=== PATIENT | female | born 1985 | race Caucasian/White ===

== ENCOUNTER → 2018-01-12 10:56 | Outpatient (CLI) | payer OTHER, MEDICAID, SELFPAY ==
--- NOTE | 2018-01-12 10:59 | DI.RAD.S_ITS ---
PROCEDURE: XR WRIST LT MIN 3V INDICATIONS: Injury to Left wrist Pain radial side of wrist TECHNIQUE: 4 views of the wrist were acquired. COMPARISON: [facility], CR, WRIST COMP MIN 3VW (LT), 10/30/2013, 10:24. [facility], CR, WRIST MINIMUM 3 VIEWS LEFT, 08/30/2013, 16:20. FINDINGS: Bones: There is a remote, healed fracture of the distal radius. No new fractures are seen. No suspicious lytic or blastic lesions are seen. Scaphoid view: No navicular fractures are seen. Soft tissues: No suspicious soft tissue calcifications. IMPRESSION: No acute fractures are seen. Remote distal radius fracture, which is now healed. Dictated by: Hung Guzmán M.D. on 01/12/2018 at 11:39 Approved by: Hung Guzmán M.D. on 01/12/2018 at 11:40
[2018-01-12 12:04] LABS: Add Manual Diff / Slide Review NO; Basophils Percent Auto 0.6 % (0-2); Eosinophils Percent Auto 1.7 % (2-4); Hematocrit 39.7 % (36-46); Hemoglobin 13.2 g/dL (12.0-16.0); Mean Corpuscular HGB Conc 33.1 % (30-36); Mean Corpuscular Hemoglobin 25.5 PG (26-34); Mean Corpuscular Volume 76.9 fL (80-100); Monocytes Percent Auto 6.9 % (3-14); Neutrophils Absolute Auto 4600 /uL (3000-5900); Neutrophils Percent Auto 57.8 % (50-75); Platelet Count 232 X10^3/uL (150-400); Red Blood Cell Count 5.17 X10^6/uL (4.0-5.2); Red Cell Distribution Width 15.6 % (11.6-14.8)
[2018-01-12 12:35] LABS: Alanine Aminotransferase 34 IU/L (9-52); Albumin 4.5 g/dL (3.5-5.0); Albumin Globulin Ratio 1.3 (1.0-2.8); Alkaline Phosphatase 53 U/L (38-126); Aspartate Aminotransferase 24 IU/L (14-36); BUN Creatinine Ratio 12.5 (6-22); Bilirubin Total 0.5 mg/dL (0.2-1.3); Blood Urea Nitrogen 10 mg/dL (7-17); Calcium 9.7 mg/dL (8.4-10.2); Carbon Dioxide 25 mmol/L (22-32); Chloride 106 mmol/L (98-107); Cholesterol 208 mg/dL (140-199); Estimated Glomerular Filt Rate > 60.0 mL/min (>60); Globulin 3.4 g/dL (1.7-4.1); Glucose 103 mg/dL (70-100); HDL Cholesterol 37 mg/dL (40-60); HEMOLYSIS < 15 (0-50); LDL Cholesterol Calculated 148 mg/dL (<100); Potassium 4.2 mmol/L (3.4-5.1); Sodium 143 mmol/L (137-145); Total Protein 7.9 g/dL (6.3-8.2); Triglycerides 113 mg/dL (35-150)
[2018-01-12 12:56] LABS: Thyroid Stimulating Hormone 2.45 uIU/mL (0.47-4.68)
== END ==
PROVIDERS: Family Provider Physician Assistant; PCP Physician Assistant; Visit Provider Physician Assistant
DX: S69.92XA Unspecified injury of left wrist, hand and finger(s), initial encounter (principal); M25.532 Pain in left wrist; I10 Essential (primary) hypertension; Z13.220 Encounter for screening for lipoid disorders; Z13.6 Encounter for screening for cardiovascular disorders; E66.01 Morbid (severe) obesity due to excess calories; Z13.29 Encounter for screening for other suspected endocrine disorder; R53.83 Other fatigue
CPT/HCPCS: 36415; 73110; 80053; 80061; 84443; 85025

== ENCOUNTER → 2018-05-10 13:09 | Outpatient (CLI) | payer OTHER, MEDICAID, SELFPAY ==
--- NOTE | 2018-05-10 13:11 | DI.CT.S_ITS ---
PROCEDURE: CT SINUS SCREEN WO CON INDICATIONS: Recurrent sinusitis TECHNIQUE: Noncontrast 3.0 mm axial images acquired from the frontal sinuses to the mid-sella, with coronal and sagittal reformats. For radiation dose reduction, the following was used: automated exposure control, adjustment of mA and/or kV according to patient size. COMPARISON: None. FINDINGS: Image quality: Excellent. Maxillary Sinuses: There is partial absence of the medial davidson of the maxillary sinuses. There is a focal mucous retention cyst seen involving the inferior right maxillary sinus. Ethmoid Air Cells: Portions of the ethmoid air cell septations have been removed. Sinuses are clear. Sphenoid Sinuses: No bony remodeling or destruction. Sinuses are clear. Frontal Sinuses: No bony remodeling or destruction. Sinuses are clear. Ostiomeatal Complexes: Removed. Miscellaneous: Visualized intra-orbital contents are normal. No graciela bullosa or paradoxical turbinate curvature. No nasal septal deviation. IMPRESSION: No significant active paranasal sinus disease is seen. A mucous retention cyst is seen within the inferior right maxillary sinus Postoperative changes are seen, with removal of the ostiomeatal complexes and of portions of the medial davidson of the maxillary sinuses. Portions of the ethmoid air cell septations have also been removed. Dictated by: Hung Guzmán M.D. on 05/10/2018 at 14:13 Approved by: Hung Guzmán M.D. on 05/10/2018 at 14:15
== END ==
PROVIDERS: Family Provider Physician Assistant; PCP Physician Assistant; Visit Provider Physician Assistant
DX: J01.41 Acute recurrent pansinusitis (principal); J34.1 Cyst and mucocele of nose and nasal sinus
CPT/HCPCS: 70486

== ENCOUNTER → 2018-06-22 09:50 | Outpatient (CLI) | payer OTHER, MEDICAID, SELFPAY ==
[2018-06-22 11:57] LABS: Cholesterol 208 mg/dL (140-199); HDL Cholesterol 41 mg/dL (40-60); LDL Cholesterol Calculated 147 mg/dL (<100); Triglycerides 102 mg/dL (35-150)
== END ==
PROVIDERS: PCP Physician Assistant; Visit Provider Physician Assistant
DX: E78.5 Hyperlipidemia, unspecified (principal); I10 Essential (primary) hypertension
CPT/HCPCS: 36415; 80061

== ENCOUNTER → 2018-11-30 14:14 | Outpatient (CLI) | payer OTHER, MEDICAID, SELFPAY ==
[2018-11-30 15:34] LABS: Alanine Aminotransferase 28 IU/L (9-52); Albumin 4.5 g/dL (3.5-5.0); Albumin Globulin Ratio 1.6 (1.0-2.8); Alkaline Phosphatase 57 U/L (38-126); Aspartate Aminotransferase 20 IU/L (14-36); BUN Creatinine Ratio 15.7 (6-22); Bilirubin Total 0.8 mg/dL (0.2-1.3); Blood Urea Nitrogen 11 mg/dL (7-17); Calcium 9.8 mg/dL (8.4-10.2); Carbon Dioxide 27 mmol/L (22-32); Chloride 103 mmol/L (98-107); Cholesterol 216 mg/dL (140-199); Estimated Glomerular Filt Rate > 60.0 mL/min (>60); Globulin 2.9 g/dL (1.7-4.1); Glucose 82 mg/dL (70-100); HDL Cholesterol 35 mg/dL (40-60); HEMOLYSIS < 15 (0-50); LDL Cholesterol Calculated 147 mg/dL (<100); Potassium 4.2 mmol/L (3.4-5.1); Sodium 140 mmol/L (137-145); Total Protein 7.4 g/dL (6.3-8.2); Triglycerides 171 mg/dL (35-150)
[2018-11-30 16:23] LABS: Microalbumi Creatinin Ratio Ur 16.4 ug/mg CR (<30); Microalbumin Urine Random 2.8 mg/dL (0-1.6)
== END ==
PROVIDERS: PCP Physician Assistant; Visit Provider Physician Assistant
DX: E78.5 Hyperlipidemia, unspecified (principal); I10 Essential (primary) hypertension
CPT/HCPCS: 36415; 80053; 80061; 82043; 82570

== ENCOUNTER 2019-01-23 14:13 | Emergency (ER) | payer OTHER, MEDICAID, SELFPAY ==
[2019-01-23 14:27] VITALS: BP 148/90; PULSE 75; RESP 12; TEMP 36.7; O2SAT 100
--- NOTE | 2019-01-23 15:14 | DI.CT.S_ITS ---
PROCEDURE: CT CERVICAL SPINE WO CON INDICATIONS: mid cervical pain, s/p axonal injury to neck TECHNIQUE: Noncontrast 3 mm thick sections acquired from the skull base to the T4 level. Sagittal and coronal reformats were then constructed. For radiation dose reduction, the following was used: automated exposure control, adjustment of mA and/or kV according to patient size. COMPARISON: None. FINDINGS: Image quality: Diagnostic Bones: The craniocervical and atlantoaxial joints are well-maintained. The odontoid is intact. The vertebral body heights and prevertebral soft tissues are within normal limits throughout the cervical spine without evidence to suggest acute compression fracture. No other fractures are evident within the cervical spine. The bone mineralization is within normal limits. Mild degenerative changes of the cervical spine are incidentally noted. Soft tissues: No prevertebral soft tissue swelling. The imaged lung apices are clear. Imaged portions of the mediastinum are unremarkable. Otherwise, the remainder of the imaged soft tissues of the neck are within normal limits. IMPRESSION: 1. No acute fracture of the cervical spine. 2. Mild degenerative changes of the cervical spine. Dictated by: Jeffry Solano M.D. on 01/23/2019 at 14:44 Approved by: Jeffry Solano M.D. on 01/23/2019 at 14:46
[2019-01-23] MEDS: ACETAMINOPHEN 325 MG TABLET 975 MG PO (15:21)
--- NOTE | 2019-01-23 23:35 | ED_ITS ---
HPI - Head Injury <ANYI Rosario - Last Filed: 01/23/19 23:55> General Chief complaint: Head Injury Stated complaint: possible concussion Time Seen by Provider: 01/23/19 14:48 Source: patient Mode of arrival: Ambulatory Limitations: no limitations History of Present Illness HPI Narrative: This is a 33-year-old female, nonsmoker, who presents to ED with neck pain after she had injured her top of the head hitting a door frame above her head last night. She states she was carrying a box and standing while turning her head to answer her brother. She states she was initially in a daze but did not lose consciousness or had seizure. Reports having right-sided headache which is worse by a nodes and light, felt little dizzy and nauseated. She denies tingling/numbness to her extremities Related Data Home Medications Medication Instructions Recorded Confirmed Respironics Dreamstation CPAP #1 ea 09/13/18 10/30/18 Previous Rx's Medication Instructions Recorded [Work Shoes] #2 ea 03/08/17 flunisolide 1 spray INTRANASAL BID #25 ml 04/28/17 FEXOFENADINE/PSEUDOEPHEDRINE 1 tab PO QDAY #30 tab 08/03/17 albuterol sulfate See Rx Instructions INHALATION 01/12/18 Q6HP PRN #90 ml albuterol sulfate 90 mcg/actuation 2 puff INHALATION Q4-6H #120 puff 01/12/18 aerosol inhaler ipratropium bromide 0.02 % 2.5 ml INHALATION Q6HP PRN #2 box 01/12/18 solution for inhalation budesonide-formoterol HFA 80 1 inh INHALATION QDAY #1 inh 10/30/18 mcg-4.5 mcg/actuation aerosol inhaler losartan 50 mg tablet 50 mg PO QDAY #60 tab 10/30/18 montelukast 10 mg tablet 10 mg PO QDAY #60 tab 10/30/18 triamcinolone acetonide 0.025 % 1 applictn TOP BID PRN #80 gram 10/30/18 topical cream atorvastatin 10 mg tablet 10 mg PO BEDTIME #45 tab 11/30/18 Allergies Allergy/AdvReac Type Severity Reaction Status Date / Time apple Allergy Intermediate really Verified 10/30/18 11:38 bad stomach pain shrimp Allergy Intermediate stomach Verified 10/30/18 11:38 ache, vomiting and diarrhea. Eggs Allergy Mild Really Uncoded 10/30/18 11:38 bad stomach ache, vomiting and diarrea tomatoes Allergy Mild stomach Uncoded 10/30/18 11:38 ache Review of Systems <ANYI Rosario - Last Filed: 01/23/19 23:55> Review of Systems Narrative: General: Denies fever, chills, fatigue, malaise, sweats. HEENT: Denies sinus pain, ear pain, sore throat, difficulty swallowing, dizziness. Respiratory: Denies dyspnea, cough, wheezing, hemoptysis, sputum. Cardiovascular: Denies chest pain, palpitations, orthopnea, edema. Gastrointestinal: Reports nausea. Denies vomiting, abdominal pain, diarrhea, constipation, melena. : Denies dysuria, frequency, incontinence, hematuria, urinary retention. Musculoskeletal: See HPI Skin: Denies rash, skin lesions, or other. Neurologic: Reports right-sided headache. Denies weakness, numbness, change in speech, confusion, seizures, incoordination. Psychiatric: No concerning psychosocial issues. 12-point review of systems is negative except for those stated above. 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 Head: normocephalic, atraumatic. No step-offs, crepitus, scalp lesions. Eye: pupil equal, round. EOMI. Nose: nares patent. Oral: mucosa moist. Neck/Thyroid: Reports low mid cervical tenderness to palpate. She had rigid cervical spine collar applied on neck during triage. Skin: no suspicious rashes, lesions over visible areas. Warm and dry. Heart: no clubbing, no cyanosis, no edema. Lungs: Breathing even and unlabored. No stridor. No accessory muscles used. Chest: normal shape and expansion. Abdomen: non-obese, non-distended. Neurologic: alert and oriented. Cognitive exam, CFO CONTROLLER and PNS grossly intact on informal exam. Psych: good eye contact, normal affect. Initial Vital Signs Initial Vital Signs: Vital Signs Temperature 98.1 F 01/23/19 14:27 Pulse Rate 75 01/23/19 14:27 Respiratory Rate 12 01/23/19 14:27 Blood Pressure 148/90 H 01/23/19 14:27 Pulse Oximetry 100 01/23/19 14:27 <Naomy Harman DO - Last Filed: 01/24/19 07:08> Initial Vital Signs Initial Vital Signs: Vital Signs Temperature 98.1 F 01/23/19 14:27 Pulse Rate 75 01/23/19 14:27 Respiratory Rate 12 01/23/19 14:27 Blood Pressure 148/90 H 01/23/19 14:27 Pulse Oximetry 100 01/23/19 14:27 Scores <ANYI Rosario - Last Filed: 01/23/19 23:55> GCS Radha coma scale eye opening: Spontaneous Radha coma scale verbal response: Orientated [place] coma scale motor response: Obey commands Radha coma scale total score: 15 Nexus Score for C-Spine Focal Neurologic deficit present: No Midline spinal tenderness present: Yes Altered level of conciousness present: No Intoxication present: No Distracting Injury Present: No Nexus Criteria for C-spine: 1 NIH Stroke Scale Citation:: [place] Head CT injury/Trauma Rule score 0. Course <ANYI Rosario - Last Filed: 01/23/19 23:55> Orders Ordered: Discontinued Medications Acetaminophen (Tylenol) 975 mg PO NOW ONE Stop: 01/23/19 15:15 Last Admin: 01/23/19 15:21 Dose: 975 mg Documented by: SAWYER <Naomy Harman DO - Last Filed: 01/24/19 07:08> Orders Ordered: Discontinued Medications Acetaminophen (Tylenol) 975 mg PO NOW ONE Stop: 01/23/19 15:15 Last Admin: 01/23/19 15:21 Dose: 975 mg Documented by: SAWYER MDM - Head Injury <ANYI Rosario - Last Filed: 01/23/19 23:55> Differential Diagnosis Differential diagnosis: Likely concussion without loss of consciousness, closed head injury and other (Spine fracture, neck strain) Medical Records Attestation: I reviewed the patient's medical records. Imaging Data CT-c spine: Radiologist's impression: [place] [address] CT Scan Report Signed Patient: Anamaria Escalante GMR#: [id number] : 1985Acct:[id number] Age/Sex: 33 / FDate of Service: 01/23/19 Loc: ED Accession Number: [id number] Procedure: CT cervical spine wo con Ordering Provider: Mario Corrigan PROCEDURE: CT CERVICAL SPINE WO CON INDICATIONS: mid cervical pain, s/p axonal injury to neck TECHNIQUE: Noncontrast 3 mm thick sections acquired from the skull base to the T4 level. Sagittal and coronal reformats were then constructed. For radiation dose reduction, the following was used: automated exposure control, adjustment of mA and/or kV according to patient size. COMPARISON: None. FINDINGS: Image quality: Diagnostic Bones: The craniocervical and atlantoaxial joints are well-maintained. The odontoid is intact. The vertebral body heights and prevertebral soft tissues are within normal limits throughout the cervical spine without evidence to suggest acute compression fracture. No other fractures are evident within the cervical spine. The bone mineralization is within normal limits. Mild degenerative changes of the cervical spine are incidentally noted. Soft tissues: No prevertebral soft tissue swelling. The imaged lung apices are clear. Imaged portions of the mediastinum are unremarkable. Otherwise, the remainder of the imaged soft tissues of the neck are within normal limits. IMPRESSION: 1. No acute fracture of the cervical spine. 2. Mild degenerative changes of the cervical spine. Dictated by: Jeffry Solano M.D. on 01/23/2019 at 14:44 Approved by: Jeffry Solano M.D. on 01/23/2019 at 14:46 MDM Narrative Medical decision making narrative: This is a 33-year-old female who presents to ED with axonal type neck injury and closed head injury last night. Since then she has been having nausea, dizziness, headache which is worsen with noise and light. Patient had low mid cervical tenderness to palpate during assessment. [place] head injury/trauma score was 0. CT of head was deferred at this time. However, obtained C-spine CT test which showed no acute findings such as fracture but mild degenerative changes. After C-collar was removed patient was able to flex, extend, rotate her neck without difficulty. We discussed strict return precautions for head injury and patient verbalized understanding. Advised to use Tylenol and Motrin as needed for discomfort. Patient was discharged with a work note and advised to follow up with the PCP in 2-3 days. Patient agrees with treatment plan. Discharge Plan Departure Patient Disposition: Home Clinical Impression: Neck muscle strain Qualifiers: Encounter type: initial encounter Qualified Code(s): S16.1XXA - Strain of muscle, fascia and tendon at neck level, initial encounter CHI (closed head injury) Qualifiers: Encounter type: initial encounter Qualified Code(s): S09.90XA - Unspecified injury of head, initial encounter Discharge Date/Time: 01/23/19 16:47 Instructions: DI for Closed Head Injury, DI for Neck Pain Activity Restrictions/Additional Instructions: You have been diagnosed with [closed head injury and neck strain. According to see CT scan under neck shows there is no acute findings such as fractures]. What to do: *Take your medications as directed. Please take [id number] Tylenol and or Motrin as needed for discomfort. You can take up to 4000 mg per 24 hour period for Tylenol and Motrin 600-800 mg 3 times a day with food for pain and inflammation. I prescribed Flexeril for muscle relaxant. This medication may cause drowsiness so please take precaution such as not driving, drink alcohol, or operating heavy equipments any can take this as needed *Follow up with your primary care provider in 2-3 days, call for an appointment. Let them know you were seen in the ED and that we asked you to be seen in follow up. *Return to ED if you have any new, worsening, or concerning symptoms, such as [severe headache, vision change, repeated nausea vomiting, weakness to extremities, speech difficulty, tingling/ numbness/weakness to your extremities]. Prescriptions: No Action albuterol sulfate 2.5 mg /3 mL (0.083 %) solution for nebulization See Rx Instructions INHALATION Q6HP PRN (Reason: shortness of breath or wheezing) Qty: 90 RF: 3 albuterol sulfate [Ventolin HFA] 90 mcg/actuation HFA aerosol inhaler 2 puff INHALATION Q4-6H Qty: 120 RF: 3 ipratropium bromide 0.02 % solution 2.5 ml INHALATION Q6HP PRN (Reason: shortness of breath or wheezing) Qty: 2 RF: 3 [Work Shoes] Qty: 2 RF: 0 flunisolide 0.025 % spray,non-aerosol 1 spray Intranasal BID Qty: 25 RF: 3 FEXOFENADINE/PSEUDOEPHEDRINE 180 MG/240 MG 1 tab PO QDAY Qty: 30 RF: 12 atorvastatin 10 mg tablet 10 mg PO BEDTIME Qty: 45 RF: 1 losartan 50 mg tablet 50 mg PO QDAY Qty: 60 RF: 3 Symbicort 80-4.5 mcg/actuation HFA aerosol inhaler 1 inh INHALATION QDAY Qty: 1 RF: 3 montelukast 10 mg tablet 10 mg PO QDAY Qty: 60 RF: 3 triamcinolone acetonide 0.025 % cream 1 applictn TOP BID PRN (Reason: Eczema) Qty: 80 RF: 1 (DME) Respironics Dreamstation CPAP Qty: 1 RF: 0 Referrals: Chanel Beckman PA-C [Primary Care Provider] - Stand Alone Forms: Work Release Note
== END 2019-01-23 16:47 | disposition home or self-care (01) ==
PROVIDERS: Emergency Provider Nurse Practitioner Family; PCP Physician Assistant
DX: S16.1XXA Strain of muscle, fascia and tendon at neck level, initial encounter (principal); S09.90XA Unspecified injury of head, initial encounter
CPT/HCPCS: 72125; 99282; 99284

== ENCOUNTER → 2019-02-08 11:25 | Outpatient (CLI) | payer OTHER, MEDICAID, SELFPAY ==
[2019-02-08 12:46] LABS: Cholesterol 141 mg/dL (140-199); HDL Cholesterol 37 mg/dL (40-60); LDL Cholesterol Calculated 85 mg/dL (<100); Triglycerides 95 mg/dL (35-150)
== END ==
PROVIDERS: PCP Physician Assistant; Visit Provider Physician Assistant
DX: E78.5 Hyperlipidemia, unspecified (principal)
CPT/HCPCS: 36415; 80061

== ENCOUNTER 2019-04-30 14:30 | Outpatient (RCR) | payer OTHER, MEDICAID, SELFPAY ==
--- NOTE | 2019-02-23 09:19 | PT.OTN ---
Current Diagnoses Strain of muscle, fascia and tendon at neck level, initial encounter (02/23/19) Physical Therapy Treatment Note PT-OP-A Visit Information Start: 02/23/19 07:28 Freq: Status: Active Protocol: Document 02/23/19 07:29 MB (Rec: 02/23/19 07:32 MB [id number]) Out-Patient Physical Therapy Visit Information Visit Information Visit Type Initial Evaluation Visit Note 1 eval per year, 23 visits Visit Start Time 07:29 Visit Stop Time 08:08 Total Visit Minutes 39 Visit Number 05/18 Number of FRETTED INSTRUMENT INSPECTOR Visits 0 PT-OP-B Current Condition Start: 02/23/19 07:28 Freq: Status: Active Protocol: Document 02/23/19 07:29 MB (Rec: 02/23/19 08:10 MB [id number]) Current Condition History of Current Condition Onset Date 01/22/19 History of Current Condition Pt was going to take a step up attic steps holding flat screen TV when she turned to listen to someone asking her a question. She stood up into the door frame, hitting the top of her head and hurting her head and neck. She did not drop the TV. She went to the ED the next day. She was told she had a closed head injury but did not have head dxs. She was told she has a neck strain. She works at [employer]. She has been working. She had 1-1.5 weeks off. 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 Her shoulders bother her and she points to the top of her left shoulder. Pt reports discomfort in her shoulder blades. She sleeps on her side with 1 pillow under her head. She sleeps with her arm under her pillow depending on the time of night. Pt reports improving [place] pain. She reports radiating pain from back of neck up right side of head. She does report sensitivity to light and sound. She is having less sxs and has more trouble when tired. She has tendonitis and arthritis and does not think that she has increased paresthesias in her arms. She had initial confusion with light and noise sensitivity. Her neck pain gets up to 9/10. It always hurts and is 3/10 at the least . She has increased pain throughout the day. She can't ride in car d/t neck pain. The feeling of the road bothers her neck. She cannot use her CPAP machine d/t neck pain when she gets up in the morning. Pt reports lessening dizziness over the last week. Prior Treatments and Tests Cervical dxs: NAD, mild DDD Treatment Goals Patient/Caregiver Goals Decrease neck pain PT-OP-C Subjective Start: 02/23/19 07:28 Freq: Status: Active Protocol: Document 02/23/19 07:29 MB (Rec: 02/23/19 08:11 MB [id number]) OP-PT Subjective Patient Comments Patient Comments See history of current condition for details on initial evaluation. PT-OP-K Range of Motion Start: 02/23/19 07:28 Freq: Status: Active Protocol: Document 02/23/19 07:29 MB (Rec: 02/23/19 08:14 MB [id number]) Cervical Spine Range of Motion Cervical Spine Active Testing Position Standing Flexion 30 Extension 20 Rotation Left 40 Rotation Right 45 Lateral Flexion Left 18 Lateral Flexion Right 20 Comments No tunnel vision, numbness or paresthesias with any cervical motion, pt reports most pain with extension, rated 6-7/10 PT-OP-M Strength Start: 02/23/19 07:28 Freq: Status: Active Protocol: Document 02/23/19 07:29 MB (Rec: 02/23/19 08:16 MB [id number]) Shoulder Strength Shoulder Manual Muscle Testing Left Flexion 5 Normal Abduction (C5) 5 Normal External Rotation 5 Normal Internal Rotation 5 Normal Right Flexion 5 Normal Abduction (C5) 5 Normal External Rotation 5 Normal Internal Rotation 5 Normal Elbow/Forearm Strength Elbow and Forearm Manual Muscle Testing Left Flexion (C6) 5 Normal Extension (C7) 5 Normal Pronation 5 Normal Supination 5 Normal Right Flexion (C6) 5 Normal Extension (C7) 5 Normal Pronation 5 Normal Supination 5 Normal PT-OP-Q Treatments Start: 02/23/19 07:28 Freq: Status: Active Protocol: Document 02/23/19 07:29 MB (Rec: 02/23/19 09:18 MB [id number]) Therapeutic Exercises Standing Exercises Racquet ball massage Comments B intrascapular area Self-Care/Home Management Treatment Education Caregiver Education Proper sleeping position with neck and UE support, log roll OOB PT-OP-T Assessment and Plan Start: 02/23/19 07:28 Freq: Status: Active Protocol: Document 02/23/19 07:29 MB (Rec: 02/23/19 09:17 MB [id number]) Physical Therapy Assessment Goals 4 Occupational Medicine Specialist Goal (LTG) Pt will perform progressive HEP with I including postural, flexibility, strengthening exercises by 04/25/19. 3 Retirement Goal (LTG) Pt will present with improved cervical AROM to at least 40 deg flexion, 30 deg extension and B rotation to 60 deg by 04/25/19. LTG Duration 8 weeks 2 Retirement Goal (LTG) Pt will report a 75% improvement in head, neck and shoulder pain by 04/25/19. LTG Duration 8 weeks 1 Retirement Goal (LTG) Pt will present with improved NDI score to reflect no more than 10% impairment by 04/25/19. LTG Duration 8 weeks Assessment Summary Assessment Pt is a 33 y/o female presenting with neck and shoulder pain after she hit her head on door frame while holding flat screen TV. She reports that ED states she did have a closed head injury but no head dxs were performed. Next dxs reveal NAD. She has had some confusion, improving headaches and photophobia and sensitivity to sound. Given her sxs, PT does feel that pt has some post-concussive sxs. This may be a barrier to PT. Her UE strength is good. She presents with postural, myofascial and cervical ROM changes. She will benefit from PT for postural, flexibility, strengthening and manual work . Physical Therapy Plan Frequency and Duration Frequency of Treatment 2x/Week Duration of Treatment 8 weeks Plan of Care Start Date 02/23/19 Plan of Care End Date 04/25/19 Therapeutic Interventions Therapeutic Interventions Home Exercise Program,Joint Mobilizations,Manual Therapy, Neuromuscular Re-education, Patient/Caregiver Education, Self-Care/Home Management,Soft Tissue Mobilization,Taping, Therapeutic Exercises Modalities Cold Pack/Ice Massage,Electric Stimulation,Hot Packs, Ultrasound Next Visit Focus/Plan Next Note Type Treatment Note Next Visit Plan Con't further racquet ball massage ed, consider Counterstrain
--- NOTE | 2019-02-23 09:20 | PT.OPPOC ---
Current Diagnoses Strain of muscle, fascia and tendon at neck level, initial encounter (02/23/19) Visit Care Team Role Provider Type Chanel Beckman PA-C Primary Care Provider Advanced Typing Element Machine Operator Specialty: Medical Address: [address] [place] [address], [address], [id number] Email: [email or web address] Manrique Attending Provider Advanced Typing Element Machine Operator Specialty: Family Practice Address: [address] [place] [address] [address] [place] [address], [id number] Email: [email or web address] Plan Of Care PT-OP-T Assessment and Plan Start: 02/23/19 07:28 Freq: Status: Active Protocol: Document 02/23/19 07:29 MB (Rec: 02/23/19 09:17 MB [id number]) Physical Therapy Assessment Goals 4 Assisted Goal (LTG) Pt will perform progressive HEP with I including postural, flexibility, strengthening exercises by 04/25/19. 3 Pearl Maker Goal (LTG) Pt will present with improved cervical AROM to at least 40 deg flexion, 30 deg extension and B rotation to 60 deg by 04/25/19. LTG Duration 8 weeks 2 Pearl Maker Goal (LTG) Pt will report a 75% improvement in head, neck and shoulder pain by 04/25/19. LTG Duration 8 weeks 1 Pearl Maker Goal (LTG) Pt will present with improved NDI score to reflect no more than 10% impairment by 04/25/19. LTG Duration 8 weeks Assessment Summary Assessment Pt is a 33 y/o female presenting with neck and shoulder pain after she hit her head on door frame while holding flat screen TV. She reports that ED states she did have a closed head injury but no head dxs were performed. Next dxs reveal NAD. She has had some confusion, improving headaches and photophobia and sensitivity to sound. Given her sxs, PT does feel that pt has some post-concussive sxs. This may be a barrier to PT. Her UE strength is good. She presents with postural, myofascial and cervical ROM changes. She will benefit from PT for postural, flexibility, strengthening and manual work . Physical Therapy Plan Frequency and Duration Frequency of Treatment 2x/Week Duration of Treatment 8 weeks Plan of Care Start Date 02/23/19 Plan of Care End Date 04/25/19 Therapeutic Interventions Therapeutic Interventions Home Exercise Program,Joint Mobilizations,Manual Therapy, Neuromuscular Re-education, Patient/Caregiver Education, Self-Care/Home Management,Soft Tissue Mobilization,Taping, Therapeutic Exercises Modalities Cold Pack/Ice Massage,Electric Stimulation,Hot Packs, Ultrasound Next Visit Focus/Plan Next Note Type Treatment Note Next Visit Plan Con't further racquet ball massage ed, consider Counterstrain Plan of Care Dates Plan of Care Start Date 02/23/19 Plan of Care End Date 04/25/19
--- NOTE | 2019-02-26 13:46 | PT.OTN ---
Current Diagnoses Strain of muscle, fascia and tendon at neck level, initial encounter (02/26/19) Physical Therapy Treatment Note PT-OP-A Visit Information Start: 02/23/19 07:28 Freq: Status: Active Protocol: Document 02/26/19 13:02 MB (Rec: 02/26/19 13:46 MB [id number]) Out-Patient Physical Therapy Visit Information Visit Information Visit Type Treatment Note Visit Start Time 13:02 Visit Stop Time 13:45 Total Visit Minutes 43 Visit Number 06/18 Number of ALUMINUM MOLDING MACHINE OPERATOR Visits 0 PT-OP-B Current Condition Start: 02/23/19 07:28 Freq: Status: Active Protocol: Document 02/23/19 07:29 MB (Rec: 02/23/19 08:10 MB [id number]) Current Condition History of Current Condition Onset Date 01/22/19 History of Current Condition Pt was going to take a step up attic steps holding flat screen TV when she turned to listen to someone asking her a question. She stood up into the door frame, hitting the top of her head and hurting her head and neck. She did not drop the TV. She went to the ED the next day. She was told she had a closed head injury but did not have head dxs. She was told she has a neck strain. She works at [employer]. She has been working. She had 1-1.5 weeks off. 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 Her shoulders bother her and she points to the top of her left shoulder. Pt reports discomfort in her shoulder blades. She sleeps on her side with 1 pillow under her head. She sleeps with her arm under her pillow depending on the time of night. Pt reports improving [place] pain. She reports radiating pain from back of neck up right side of head. She does report sensitivity to light and sound. She is having less sxs and has more trouble when tired. She has tendonitis and arthritis and does not think that she has increased paresthesias in her arms. She had initial confusion with light and noise sensitivity. Her neck pain gets up to 9/10. It always hurts and is 3/10 at the least . She has increased pain throughout the day. She can't ride in car d/t neck pain. The feeling of the road bothers her neck. She cannot use her CPAP machine d/t neck pain when she gets up in the morning. Pt reports lessening dizziness over the last week. Prior Treatments and Tests Cervical dxs: NAD, mild DDD Treatment Goals Patient/Caregiver Goals Decrease neck pain PT-OP-C Subjective Start: 02/23/19 07:28 Freq: Status: Active Protocol: Document 02/26/19 13:02 MB (Rec: 02/26/19 13:46 MB [id number]) OP-PT Subjective Patient Comments Patient Comments Pt worked 6.5 hours on Tuesday and Tuesday. 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 PT-OP-K Range of Motion Start: 02/23/19 07:28 Freq: Status: Active Protocol: Document 02/23/19 07:29 MB (Rec: 02/23/19 08:14 MB [id number]) Cervical Spine Range of Motion Cervical Spine Active Testing Position Standing Flexion 30 Extension 20 Rotation Left 40 Rotation Right 45 Lateral Flexion Left 18 Lateral Flexion Right 20 Comments No tunnel vision, numbness or paresthesias with any cervical motion, pt reports most pain with extension, rated 6-7/10 PT-OP-M Strength Start: 02/23/19 07:28 Freq: Status: Active Protocol: Document 02/23/19 07:29 MB (Rec: 02/23/19 08:16 MB [id number]) Shoulder Strength Shoulder Manual Muscle Testing Left Flexion 5 Normal Abduction (C5) 5 Normal External Rotation 5 Normal Internal Rotation 5 Normal Right Flexion 5 Normal Abduction (C5) 5 Normal External Rotation 5 Normal Internal Rotation 5 Normal Elbow/Forearm Strength Elbow and Forearm Manual Muscle Testing Left Flexion (C6) 5 Normal Extension (C7) 5 Normal Pronation 5 Normal Supination 5 Normal Right Flexion (C6) 5 Normal Extension (C7) 5 Normal Pronation 5 Normal Supination 5 Normal PT-OP-Q Treatments Start: 02/23/19 07:28 Freq: Status: Active Protocol: Document 02/26/19 13:02 MB (Rec: 02/26/19 13:46 MB [id number]) Manual Therapy Treatment Manual Techniques Suboccipital release Comments Suboccipital release Counterstrain Comments Counterstrain to assess and treat fascial and lymphatic tension, pt agreeable: treated anterior cervical AINT, anterior cervical somatics, right spinal extension LV, standard LV on the right, stacks B cervical and thoracic PT-OP-T Assessment and Plan Start: 02/23/19 07:28 Freq: Status: Active Protocol: Document 02/26/19 13:02 MB (Rec: 02/26/19 13:46 MB [id number]) Physical Therapy Assessment Goals 4 Senior Care Goal (LTG) Pt will perform progressive HEP with I including postural, flexibility, strengthening exercises by 04/25/19. 3 Vtc Technician Goal (LTG) Pt will present with improved cervical AROM to at least 40 deg flexion, 30 deg extension and B rotation to 60 deg by 04/25/19. LTG Duration 8 weeks 2 Senior Care Goal (LTG) Pt will report a 75% improvement in head, neck and shoulder pain by 04/25/19. LTG Duration 8 weeks 1 Senior Care Goal (LTG) Pt will present with improved NDI score to reflect no more than 10% impairment by 04/25/19. LTG Duration 8 weeks Assessment Summary Assessment Initiated Counterstrain this date. Monitor response. 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 PT encouraged pt to see her doctor. Physical Therapy Plan Frequency and Duration Frequency of Treatment 2x/Week Duration of Treatment 8 weeks Plan of Care Start Date 02/23/19 Plan of Care End Date 04/25/19 Therapeutic Interventions Therapeutic Interventions Home Exercise Program,Joint Mobilizations,Manual Therapy, Neuromuscular Re-education, Patient/Caregiver Education, Self-Care/Home Management,Soft Tissue Mobilization,Taping, Therapeutic Exercises Modalities Cold Pack/Ice Massage,Electric Stimulation,Hot Packs, Ultrasound Next Visit Focus/Plan Next Note Type Treatment Note Next Visit Plan Con't further racquet ball massage ed, consider ongoing Counterstrain
--- NOTE | 2019-03-01 13:44 | PT.OTN ---
Current Diagnoses Strain of muscle, fascia and tendon at neck level, initial encounter (03/01/19) Physical Therapy Treatment Note PT-OP-A Visit Information Start: 02/23/19 07:28 Freq: Status: Active Protocol: Document 03/01/19 13:05 MB (Rec: 03/01/19 13:44 MB [id number]) Out-Patient Physical Therapy Visit Information Visit Information Visit Type Treatment Note Visit Start Time 13:05 Visit Stop Time 13:43 Total Visit Minutes 38 Visit Number 07/16 Number of PHARMACY LABORATORY TECHNICIAN Visits 0 PT-OP-B Current Condition Start: 02/23/19 07:28 Freq: Status: Active Protocol: Document 02/23/19 07:29 MB (Rec: 02/23/19 08:10 MB [id number]) Current Condition History of Current Condition Onset Date 01/22/19 History of Current Condition Pt was going to take a step up attic steps holding flat screen TV when she turned to listen to someone asking her a question. She stood up into the door frame, hitting the top of her head and hurting her head and neck. She did not drop the TV. She went to the ED the next day. She was told she had a closed head injury but did not have head dxs. She was told she has a neck strain. She works at [employer]. She has been working. She had 1-1.5 weeks off. 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 Her shoulders bother her and she points to the top of her left shoulder. Pt reports discomfort in her shoulder blades. She sleeps on her side with 1 pillow under her head. She sleeps with her arm under her pillow depending on the time of night. Pt reports improving [place] pain. She reports radiating pain from back of neck up right side of head. She does report sensitivity to light and sound. She is having less sxs and has more trouble when tired. She has tendonitis and arthritis and does not think that she has increased paresthesias in her arms. She had initial confusion with light and noise sensitivity. Her neck pain gets up to 9/10. It always hurts and is 3/10 at the least . She has increased pain throughout the day. She can't ride in car d/t neck pain. The feeling of the road bothers her neck. She cannot use her CPAP machine d/t neck pain when she gets up in the morning. Pt reports lessening dizziness over the last week. Prior Treatments and Tests Cervical dxs: NAD, mild DDD Treatment Goals Patient/Caregiver Goals Decrease neck pain PT-OP-C Subjective Start: 02/23/19 07:28 Freq: Status: Active Protocol: Document 03/01/19 13:05 MB (Rec: 03/01/19 13:44 MB [id number]) OP-PT Subjective Patient Comments Patient Comments Pt worked yesterday. Her hours were cut to 5. 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 The pain started radiating between her shoulder blades. PT-OP-K Range of Motion Start: 02/23/19 07:28 Freq: Status: Active Protocol: Document 02/23/19 07:29 MB (Rec: 02/23/19 08:14 MB [id number]) Cervical Spine Range of Motion Cervical Spine Active Testing Position Standing Flexion 30 Extension 20 Rotation Left 40 Rotation Right 45 Lateral Flexion Left 18 Lateral Flexion Right 20 Comments No tunnel vision, numbness or paresthesias with any cervical motion, pt reports most pain with extension, rated 6-7/10 PT-OP-M Strength Start: 02/23/19 07:28 Freq: Status: Active Protocol: Document 02/23/19 07:29 MB (Rec: 02/23/19 08:16 MB [id number]) Shoulder Strength Shoulder Manual Muscle Testing Left Flexion 5 Normal Abduction (C5) 5 Normal External Rotation 5 Normal Internal Rotation 5 Normal Right Flexion 5 Normal Abduction (C5) 5 Normal External Rotation 5 Normal Internal Rotation 5 Normal Elbow/Forearm Strength Elbow and Forearm Manual Muscle Testing Left Flexion (C6) 5 Normal Extension (C7) 5 Normal Pronation 5 Normal Supination 5 Normal Right Flexion (C6) 5 Normal Extension (C7) 5 Normal Pronation 5 Normal Supination 5 Normal PT-OP-Q Treatments Start: 02/23/19 07:28 Freq: Status: Active Protocol: Document 03/01/19 13:05 MB (Rec: 03/01/19 13:44 MB [id number]) Therapeutic Exercises Standing Exercises Chin tuck and scapular retraction Comments Initiated against wall and added to HEP Racquet ball massage MWM infra, upper traps Comments Performed and added to HEP Racquet ball massage Comments B intrascapular area PT-OP-T Assessment and Plan Start: 02/23/19 07:28 Freq: Status: Active Protocol: Document 03/01/19 13:05 MB (Rec: 03/01/19 13:44 MB [id number]) Physical Therapy Assessment Goals 4 Abrasive Grader Goal (LTG) Pt will perform progressive HEP with I including postural, flexibility, strengthening exercises by 04/25/19. 3 Abrasive Grader Goal (LTG) Pt will present with improved cervical AROM to at least 40 deg flexion, 30 deg extension and B rotation to 60 deg by 04/25/19. LTG Duration 8 weeks 2 Senior Living Goal (LTG) Pt will report a 75% improvement in head, neck and shoulder pain by 04/25/19. LTG Duration 8 weeks 1 Abrasive Grader Goal (LTG) Pt will present with improved NDI score to reflect no more than 10% impairment by 04/25/19. LTG Duration 8 weeks Assessment Summary Assessment Pt tolerated Counterstrain well, con't efforts as appropriate. Initiated further self-massage and postural exercises today, con't progression. Extensive ed and practice for upper traps MWM, pt reports she has visual spatial challenges. Physical Therapy Plan Frequency and Duration Frequency of Treatment 2x/Week Duration of Treatment 8 weeks Plan of Care Start Date 02/23/19 Plan of Care End Date 04/25/19 Therapeutic Interventions Therapeutic Interventions Home Exercise Program,Joint Mobilizations,Manual Therapy, Neuromuscular Re-education, Patient/Caregiver Education, Self-Care/Home Management,Soft Tissue Mobilization,Taping, Therapeutic Exercises Modalities Cold Pack/Ice Massage,Electric Stimulation,Hot Packs, Ultrasound Next Visit Focus/Plan Next Note Type Treatment Note Next Visit Plan Con't exercises progression for cervical stabilization and core and intrascapular and shoulder strengthening, consider ongoing Counterstrain
--- NOTE | 2019-03-05 13:01 | PT.OTN ---
Current Diagnoses Strain of muscle, fascia and tendon at neck level, initial encounter (03/05/19) Physical Therapy Treatment Note PT-OP-A Visit Information Start: 02/23/19 07:28 Freq: Status: Active Protocol: Document 03/05/19 12:16 SP (Rec: 03/05/19 13:04 SP [id number]) Out-Patient Physical Therapy Visit Information Visit Information Visit Type Treatment Note Visit Start Time 12:16 Visit Stop Time 13:01 Total Visit Minutes 45 Visit Number 08/16 Number of HOME MAKER Visits 1 PT-OP-B Current Condition Start: 02/23/19 07:28 Freq: Status: Active Protocol: Document 02/23/19 07:29 MB (Rec: 02/23/19 08:10 MB [id number]) Current Condition History of Current Condition Onset Date 01/22/19 History of Current Condition Pt was going to take a step up attic steps holding flat screen TV when she turned to listen to someone asking her a question. She stood up into the door frame, hitting the top of her head and hurting her head and neck. She did not drop the TV. She went to the ED the next day. She was told she had a closed head injury but did not have head dxs. She was told she has a neck strain. She works at [employer]. She has been working. She had 1-1.5 weeks off. 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 Her shoulders bother her and she points to the top of her left shoulder. Pt reports discomfort in her shoulder blades. She sleeps on her side with 1 pillow under her head. She sleeps with her arm under her pillow depending on the time of night. Pt reports improving [place] pain. She reports radiating pain from back of neck up right side of head. She does report sensitivity to light and sound. She is having less sxs and has more trouble when tired. She has tendonitis and arthritis and does not think that she has increased paresthesias in her arms. She had initial confusion with light and noise sensitivity. Her neck pain gets up to 9/10. It always hurts and is 3/10 at the least . She has increased pain throughout the day. She can't ride in car d/t neck pain. The feeling of the road bothers her neck. She cannot use her CPAP machine d/t neck pain when she gets up in the morning. Pt reports lessening dizziness over the last week. Prior Treatments and Tests Cervical dxs: NAD, mild DDD Treatment Goals Patient/Caregiver Goals Decrease neck pain PT-OP-C Subjective Start: 02/23/19 07:28 Freq: Status: Active Protocol: Document 03/05/19 12:16 SP (Rec: 03/05/19 13:04 SP [id number]) OP-PT Subjective Patient Comments Patient Comments Pt stated posterior neck to mid thoracic pain 6-7/10 pre PT. 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 Pt stated compliant with HEP and no adverse affects. PT-OP-K Range of Motion Start: 02/23/19 07:28 Freq: Status: Active Protocol: Document 02/23/19 07:29 MB (Rec: 02/23/19 08:14 MB [id number]) Cervical Spine Range of Motion Cervical Spine Active Testing Position Standing Flexion 30 Extension 20 Rotation Left 40 Rotation Right 45 Lateral Flexion Left 18 Lateral Flexion Right 20 Comments No tunnel vision, numbness or paresthesias with any cervical motion, pt reports most pain with extension, rated 6-7/10 PT-OP-M Strength Start: 02/23/19 07:28 Freq: Status: Active Protocol: Document 02/23/19 07:29 MB (Rec: 02/23/19 08:16 MB [id number]) Shoulder Strength Shoulder Manual Muscle Testing Left Flexion 5 Normal Abduction (C5) 5 Normal External Rotation 5 Normal Internal Rotation 5 Normal Right Flexion 5 Normal Abduction (C5) 5 Normal External Rotation 5 Normal Internal Rotation 5 Normal Elbow/Forearm Strength Elbow and Forearm Manual Muscle Testing Left Flexion (C6) 5 Normal Extension (C7) 5 Normal Pronation 5 Normal Supination 5 Normal Right Flexion (C6) 5 Normal Extension (C7) 5 Normal Pronation 5 Normal Supination 5 Normal PT-OP-Q Treatments Start: 02/23/19 07:28 Freq: Status: Active Protocol: Document 03/05/19 12:16 SP (Rec: 03/05/19 13:04 SP [id number]) Therapeutic Exercises Sidelying Exercises Ts rotation Side bilateral Reps/Minutes x5-10 reps Comments cued can told for pec stretch, slow control with CS following sternum Standing Exercises cervical strething Standing Exercise Name UT, Lev scap Side bilateral Reps/Minutes 20-30 x3 R and L Comments to resistance and into if tolerable. deep neck flexion TB Resistance level 1 TB (around back occiput) Equipment Used wall Comments CS retraction to neutral, elbows planked on wall scap retraction TB Side bilateral Resistance L 1 TB Reps/Minutes 5 sec hold x10 Comments CS neutral awareness Chin tuck and scapular retraction Standing Exercise Name Review HEP Reps/Minutes 5 sec hold x10 Racquet ball massage MWM infra, upper traps Standing Exercise Name Review HEP Comments Performed and added to HEP Racquet ball massage Comments B intrascapular area Manual Therapy Treatment Soft Tissue Mobilization CS STMs Body Location UT, sub occipitals Mobilization Type Myofascial Release,Sustained Pressure Intensity/Depth Moderate Body Position Hooklying PT-OP-T Assessment and Plan Start: 02/23/19 07:28 Freq: Status: Active Protocol: Document 03/05/19 12:16 SP (Rec: 03/05/19 13:04 SP [id number]) Physical Therapy Assessment Goals 4 Sql Analyst Goal (LTG) Pt will perform progressive HEP with I including postural, flexibility, strengthening exercises by 04/25/19. 3 Snf Goal (LTG) Pt will present with improved cervical AROM to at least 40 deg flexion, 30 deg extension and B rotation to 60 deg by 04/25/19. LTG Duration 8 weeks 2 Snf Goal (LTG) Pt will report a 75% improvement in head, neck and shoulder pain by 04/25/19. LTG Duration 8 weeks 1 Sql Analyst Goal (LTG) Pt will present with improved NDI score to reflect no more than 10% impairment by 04/25/19. LTG Duration 8 weeks Assessment Summary Assessment Tx focused on HEP review, added resistance to scap retraction/ chin nod CS retraction to neutral. Pt reported L pec more tight than R during TS rotation stretch/ ROM. Little restricted in L rotation but decreased pain and increased mobility by end of tx, 09/01. Physical Therapy Plan Frequency and Duration Frequency of Treatment 2x/Week Duration of Treatment 8 weeks Plan of Care Start Date 02/23/19 Plan of Care End Date 04/25/19 Therapeutic Interventions Therapeutic Interventions Home Exercise Program,Joint Mobilizations,Manual Therapy, Neuromuscular Re-education, Patient/Caregiver Education, Self-Care/Home Management,Soft Tissue Mobilization,Taping, Therapeutic Exercises Modalities Cold Pack/Ice Massage,Electric Stimulation,Hot Packs, Ultrasound Next Visit Focus/Plan Next Note Type Treatment Note Next Visit Plan Review HEP: added TB scap retract and DNF and TS rotation. Trial shld strengthening next tx. Con't exercises progression for cervical stabilization and core and intrascapular and shoulder strengthening, consider ongoing Counterstrain
--- NOTE | 2019-03-09 15:43 | PT.OTN ---
Current Diagnoses Strain of muscle, fascia and tendon at neck level, initial encounter (03/09/19) Physical Therapy Treatment Note PT-OP-A Visit Information Start: 02/23/19 07:28 Freq: Status: Active Protocol: Document 03/09/19 14:34 SP (Rec: 03/09/19 15:43 SP [id number]) Out-Patient Physical Therapy Visit Information Visit Information Visit Type Treatment Note Visit Start Time 14:34 Visit Stop Time 15:15 Total Visit Minutes 41 Visit Number 09/15 Number of QUAHOGGER Visits 2 PT-OP-B Current Condition Start: 02/23/19 07:28 Freq: Status: Active Protocol: Document 02/23/19 07:29 MB (Rec: 02/23/19 08:10 MB [id number]) Current Condition History of Current Condition Onset Date 01/22/19 History of Current Condition Pt was going to take a step up attic steps holding flat screen TV when she turned to listen to someone asking her a question. She stood up into the door frame, hitting the top of her head and hurting her head and neck. She did not drop the TV. She went to the ED the next day. She was told she had a closed head injury but did not have head dxs. She was told she has a neck strain. She works at [employer]. She has been working. She had 1-1.5 weeks off. 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 Her shoulders bother her and she points to the top of her left shoulder. Pt reports discomfort in her shoulder blades. She sleeps on her side with 1 pillow under her head. She sleeps with her arm under her pillow depending on the time of night. Pt reports improving [place] pain. She reports radiating pain from back of neck up right side of head. She does report sensitivity to light and sound. She is having less sxs and has more trouble when tired. She has tendonitis and arthritis and does not think that she has increased paresthesias in her arms. She had initial confusion with light and noise sensitivity. Her neck pain gets up to 9/10. It always hurts and is 3/10 at the least . She has increased pain throughout the day. She can't ride in car d/t neck pain. The feeling of the road bothers her neck. She cannot use her CPAP machine d/t neck pain when she gets up in the morning. Pt reports lessening dizziness over the last week. Prior Treatments and Tests Cervical dxs: NAD, mild DDD Treatment Goals Patient/Caregiver Goals Decrease neck pain PT-OP-C Subjective Start: 02/23/19 07:28 Freq: Status: Active Protocol: Document 03/09/19 14:34 SP (Rec: 03/09/19 15:43 SP [id number]) OP-PT Subjective Patient Comments Patient Comments Pt stated having 6/10 pain posterior occiput down back of neck to mid back both sides pre PT today. Pt stated compliant with HEP. 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 Patient Reported Progress Improving PT-OP-K Range of Motion Start: 02/23/19 07:28 Freq: Status: Active Protocol: Document 02/23/19 07:29 MB (Rec: 02/23/19 08:14 MB [id number]) Cervical Spine Range of Motion Cervical Spine Active Testing Position Standing Flexion 30 Extension 20 Rotation Left 40 Rotation Right 45 Lateral Flexion Left 18 Lateral Flexion Right 20 Comments No tunnel vision, numbness or paresthesias with any cervical motion, pt reports most pain with extension, rated 6-7/10 PT-OP-M Strength Start: 02/23/19 07:28 Freq: Status: Active Protocol: Document 02/23/19 07:29 MB (Rec: 02/23/19 08:16 MB [id number]) Shoulder Strength Shoulder Manual Muscle Testing Left Flexion 5 Normal Abduction (C5) 5 Normal External Rotation 5 Normal Internal Rotation 5 Normal Right Flexion 5 Normal Abduction (C5) 5 Normal External Rotation 5 Normal Internal Rotation 5 Normal Elbow/Forearm Strength Elbow and Forearm Manual Muscle Testing Left Flexion (C6) 5 Normal Extension (C7) 5 Normal Pronation 5 Normal Supination 5 Normal Right Flexion (C6) 5 Normal Extension (C7) 5 Normal Pronation 5 Normal Supination 5 Normal PT-OP-Q Treatments Start: 02/23/19 07:28 Freq: Status: Active Protocol: Document 03/09/19 14:34 SP (Rec: 03/09/19 15:43 SP [id number]) Therapeutic Exercises Supine Exercises deep neck flexion Supine Exercise Name supine and back to wall Reps/Minutes 5 sec x10 Standing Exercises table plank shld tap Standing Exercise Name raise table plank shld taps Side bilateral Resistance AROM Equipment Used table Reps/Minutes 2x10 Comments alternate BUE pec stretch Standing Exercise Name corner pec stretch Side bilateral Reps/Minutes 30 x3 Plank wall walk Standing Exercise Name on forearms lateral wall walk Resistance AROM 10 ft R and L, TB #1 10 ft x2 laps Comments cued scap stab, neutral LS shld ext Side bilateral Resistance TB #1 Reps/Minutes 2x10 Comments cued scap stab concentric/ eccentric cervical strething Standing Exercise Name UT, Lev scap Side bilateral Reps/Minutes 30 x3 R and L Comments add over pressure with opposite UE if tolerable. Chin tuck and scapular retraction Standing Exercise Name Review HEP Side bilateral Resistance AROM Equipment Used mirror Reps/Minutes 5 sec hold x10 Comments supine, stand and back to wall Manual Therapy Treatment Soft Tissue Mobilization CS STMs Body Location UT, sub occipitals, lev scap, rhomboids Mobilization Type Myofascial Release,Rolling, Sustained Pressure Intensity/Depth Moderate Body Position Supine Comments Supine posterior neck, sidelying medial scap B PT-OP-R Modalities Start: 02/23/19 07:28 Freq: Status: Active Protocol: Document 03/09/19 14:34 SP (Rec: 03/09/19 15:43 SP [id number]) Hot Pack/Cold Pack Treatment Moist heat Location posterior neck Patient Position Sitting Treatment Duration (minutes) 10 Patient Tolerance Good PT-OP-T Assessment and Plan Start: 02/23/19 07:28 Freq: Status: Active Protocol: Document 03/09/19 14:34 SP (Rec: 03/09/19 15:43 SP [id number]) Physical Therapy Assessment Goals 4 Jail Goal (LTG) Pt will perform progressive HEP with I including postural, flexibility, strengthening exercises by 04/25/19. 3 Jail Goal (LTG) Pt will present with improved cervical AROM to at least 40 deg flexion, 30 deg extension and B rotation to 60 deg by 04/25/19. LTG Duration 8 weeks 2 Jail Goal (LTG) Pt will report a 75% improvement in head, neck and shoulder pain by 04/25/19. LTG Duration 8 weeks 1 Jail Goal (LTG) Pt will present with improved NDI score to reflect no more than 10% impairment by 04/25/19. LTG Duration 8 weeks Assessment Summary Assessment Tx focused on posterior neck/ scap pain control then reviewed with added WB exercises with positive results. Cued for cervical neutral spine and scap stabilization with improvement . Reported pain decreased to 4 /10 post ex and 3/10 post MHP. Pt stated is seeing improvement in activities performs at work and therapy is helping. Physical Therapy Plan Frequency and Duration Frequency of Treatment 2x/Week Duration of Treatment 8 weeks Plan of Care Start Date 02/23/19 Plan of Care End Date 04/25/19 Therapeutic Interventions Therapeutic Interventions Home Exercise Program,Joint Mobilizations,Manual Therapy, Neuromuscular Re-education, Patient/Caregiver Education, Self-Care/Home Management,Soft Tissue Mobilization,Taping, Therapeutic Exercises Modalities Cold Pack/Ice Massage,Electric Stimulation,Hot Packs, Ultrasound Next Visit Focus/Plan Next Note Type Treatment Note Next Visit Plan Review HEP: added TB scap retract and DNF and TS rotation, wall walk, plank shld taps, shld ext resistance . Trial shld strengthening and possible CS snags next tx. Con't exercises progression for cervical stabilization and core and intrascapular and shoulder strengthening, consider ongoing Counterstrain
--- NOTE | 2019-03-15 09:01 | PT.OTN ---
Current Diagnoses Strain of muscle, fascia and tendon at neck level, initial encounter (03/15/19) Physical Therapy Treatment Note PT-OP-A Visit Information Start: 02/23/19 07:28 Freq: Status: Active Protocol: Document 03/15/19 08:19 MB (Rec: 03/15/19 09:00 MB [id number]) Out-Patient Physical Therapy Visit Information Visit Information Visit Type Treatment Note Visit Start Time 08:19 Visit Stop Time 08:59 Total Visit Minutes 40 Visit Number 10/16 Number of SUPERVISOR [employer]AT [employer]ODUCTION Visits 2 PT-OP-B Current Condition Start: 02/23/19 07:28 Freq: Status: Active Protocol: Document 02/23/19 07:29 MB (Rec: 02/23/19 08:10 MB [id number]) Current Condition History of Current Condition Onset Date 01/22/19 History of Current Condition Pt was going to take a step up attic steps holding flat screen TV when she turned to listen to someone asking her a question. She stood up into the door frame, hitting the top of her head and hurting her head and neck. She did not drop the TV. She went to the ED the next day. She was told she had a closed head injury but did not have head dxs. She was told she has a neck strain. She works at [employer]. She has been working. She had 1-1.5 weeks off. 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 Her shoulders bother her and she points to the top of her left shoulder. Pt reports discomfort in her shoulder blades. She sleeps on her side with 1 pillow under her head. She sleeps with her arm under her pillow depending on the time of night. Pt reports improving [place] pain. She reports radiating pain from back of neck up right side of head. She does report sensitivity to light and sound. She is having less sxs and has more trouble when tired. She has tendonitis and arthritis and does not think that she has increased paresthesias in her arms. She had initial confusion with light and noise sensitivity. Her neck pain gets up to 9/10. It always hurts and is 3/10 at the least . She has increased pain throughout the day. She can't ride in car d/t neck pain. The feeling of the road bothers her neck. She cannot use her CPAP machine d/t neck pain when she gets up in the morning. Pt reports lessening dizziness over the last week. 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 She rates pain as 8 -9/10 at its worse and it occurs on and off. It is getting less frequent. Sleeping is going okay. She has a towel under her pillow for neck support. Sometimes her CPAP makes her neck hurt. She thinks that the exercises are helpful and she is doing them most days. PT-OP-K Range of Motion Start: 02/23/19 07:28 Freq: Status: Active Protocol: Document 02/23/19 07:29 MB (Rec: 02/23/19 08:14 MB [id number]) Cervical Spine Range of Motion Cervical Spine Active Testing Position Standing Flexion 30 Extension 20 Rotation Left 40 Rotation Right 45 Lateral Flexion Left 18 Lateral Flexion Right 20 Comments No tunnel vision, numbness or paresthesias with any cervical motion, pt reports most pain with extension, rated 6-7/10 PT-OP-M Strength Start: 02/23/19 07:28 Freq: Status: Active Protocol: Document 02/23/19 07:29 MB (Rec: 02/23/19 08:16 MB [id number]) Shoulder Strength Shoulder Manual Muscle Testing Left Flexion 5 Normal Abduction (C5) 5 Normal External Rotation 5 Normal Internal Rotation 5 Normal Right Flexion 5 Normal Abduction (C5) 5 Normal External Rotation 5 Normal Internal Rotation 5 Normal Elbow/Forearm Strength Elbow and Forearm Manual Muscle Testing Left Flexion (C6) 5 Normal Extension (C7) 5 Normal Pronation 5 Normal Supination 5 Normal Right Flexion (C6) 5 Normal Extension (C7) 5 Normal Pronation 5 Normal Supination 5 Normal PT-OP-Q Treatments Start: 02/23/19 07:28 Freq: Status: Active Protocol: Document 03/15/19 08:19 MB (Rec: 03/15/19 09:00 MB [id number]) Therapeutic Exercises Supine Exercises Diaphragmatic breathing Comments Diaphragmatic breathing Standing Exercises pec stretch Comments Cues to slow down, perform in doorway shld ext Comments Performed B and cues not to let arm move quickly forward cervical strething Comments Cue to slow down, pt performs standing deep neck flexion TB Comments Performed today, 5 reps scap retraction TB Comments Performed B today for review, 5 reps Racquet ball massage MWM infra, upper traps Comments Performed MWM infraspinatus today, STM intrascapular area Manual Therapy Treatment Soft Tissue Mobilization Suboccipital release, gentle suboccipital STM Comments Performed with pt supine, SCM passive release, pt performing diaphragmatic breathing PT-OP-R Modalities Start: 02/23/19 07:28 Freq: Status: Active Protocol: Document 03/09/19 14:34 SP (Rec: 03/09/19 15:43 SP [id number]) Hot Pack/Cold Pack Treatment Moist heat Location posterior neck Patient Position Sitting Treatment Duration (minutes) 10 Patient Tolerance Good PT-OP-T Assessment and Plan Start: 02/23/19 07:28 Freq: Status: Active Protocol: Document 03/15/19 08:19 MB (Rec: 03/15/19 09:00 MB [id number]) Physical Therapy Assessment Goals 4 Senior Living Goal (LTG) Pt will perform progressive HEP with I including postural, flexibility, strengthening exercises by 04/25/19. 3 Senior Living Goal (LTG) Pt will present with improved cervical AROM to at least 40 deg flexion, 30 deg extension and B rotation to 60 deg by 04/25/19. LTG Duration 8 weeks 2 Sow Farm Technician Goal (LTG) Pt will report a 75% improvement in head, neck and shoulder pain by 04/25/19. LTG Duration 8 weeks 1 Sow Farm Technician Goal (LTG) Pt will present with improved NDI score to reflect no more than 10% impairment by 04/25/19. LTG Duration 8 weeks Assessment Summary Assessment Con't exercise progression. Pt has trouble verbalizing what she is feeling. Physical Therapy Plan Frequency and Duration Frequency of Treatment 2x/Week Duration of Treatment 8 weeks Plan of Care Start Date 02/23/19 Plan of Care End Date 04/25/19 Therapeutic Interventions Therapeutic Interventions Home Exercise Program,Joint Mobilizations,Manual Therapy, Neuromuscular Re-education, Patient/Caregiver Education, Self-Care/Home Management,Soft Tissue Mobilization,Taping, Therapeutic Exercises Modalities Cold Pack/Ice Massage,Electric Stimulation,Hot Packs, Ultrasound Next Visit Focus/Plan Next Note Type Treatment Note Next Visit Plan Review HEP: added TB scap retract and DNF and TS rotation, wall walk, plank shld taps, shld ext resistance . Trial shld strengthening next tx. Con't exercises progression for cervical stabilization and core and intrascapular and shoulder strengthening, consider ongoing Counterstrain
--- NOTE | 2019-03-20 17:08 | PT.OTN ---
Current Diagnoses Strain of muscle, fascia and tendon at neck level, initial encounter (03/20/19) Physical Therapy Treatment Note PT-OP-A Visit Information Start: 02/23/19 07:28 Freq: Status: Active Protocol: Document 03/20/19 16:00 MB (Rec: 03/20/19 17:08 MB [id number]) Out-Patient Physical Therapy Visit Information Visit Information Visit Type Treatment Note Visit Start Time 16:00 Visit Stop Time 16:53 Total Visit Minutes 53 Visit Number 11/15 Number of DIRECTOR PRIVATE [employer]ER[employer] AGENCY Visits 2 PT-OP-B Current Condition Start: 02/23/19 07:28 Freq: Status: Active Protocol: Document 02/23/19 07:29 MB (Rec: 02/23/19 08:10 MB [id number]) Current Condition History of Current Condition Onset Date 01/22/19 History of Current Condition Pt was going to take a step up attic steps holding flat screen TV when she turned to listen to someone asking her a question. She stood up into the door frame, hitting the top of her head and hurting her head and neck. She did not drop the TV. She went to the ED the next day. She was told she had a closed head injury but did not have head dxs. She was told she has a neck strain. She works at [employer]. She has been working. She had 1-1.5 weeks off. 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 Her shoulders bother her and she points to the top of her left shoulder. Pt reports discomfort in her shoulder blades. She sleeps on her side with 1 pillow under her head. She sleeps with her arm under her pillow depending on the time of night. Pt reports improving [place] pain. She reports radiating pain from back of neck up right side of head. She does report sensitivity to light and sound. She is having less sxs and has more trouble when tired. She has tendonitis and arthritis and does not think that she has increased paresthesias in her arms. She had initial confusion with light and noise sensitivity. Her neck pain gets up to 9/10. It always hurts and is 3/10 at the least . She has increased pain throughout the day. She can't ride in car d/t neck pain. The feeling of the road bothers her neck. She cannot use her CPAP machine d/t neck pain when she gets up in the morning. Pt reports lessening dizziness over the last week. Prior Treatments and Tests Cervical dxs: NAD, mild DDD Treatment Goals Patient/Caregiver Goals Decrease neck pain PT-OP-C Subjective Start: 02/23/19 07:28 Freq: Status: Active Protocol: Document 03/20/19 16:00 MB (Rec: 03/20/19 17:08 MB [id number]) OP-PT Subjective Patient Comments Patient Comments Pt reports that she just came from work. She is hurting at the base of her skull and between her shoulder blades and rates pain as 6/10. PT-OP-K Range of Motion Start: 02/23/19 07:28 Freq: Status: Active Protocol: Document 02/23/19 07:29 MB (Rec: 02/23/19 08:14 MB [id number]) Cervical Spine Range of Motion Cervical Spine Active Testing Position Standing Flexion 30 Extension 20 Rotation Left 40 Rotation Right 45 Lateral Flexion Left 18 Lateral Flexion Right 20 Comments No tunnel vision, numbness or paresthesias with any cervical motion, pt reports most pain with extension, rated 6-7/10 PT-OP-M Strength Start: 02/23/19 07:28 Freq: Status: Active Protocol: Document 02/23/19 07:29 MB (Rec: 02/23/19 08:16 MB [id number]) Shoulder Strength Shoulder Manual Muscle Testing Left Flexion 5 Normal Abduction (C5) 5 Normal External Rotation 5 Normal Internal Rotation 5 Normal Right Flexion 5 Normal Abduction (C5) 5 Normal External Rotation 5 Normal Internal Rotation 5 Normal Elbow/Forearm Strength Elbow and Forearm Manual Muscle Testing Left Flexion (C6) 5 Normal Extension (C7) 5 Normal Pronation 5 Normal Supination 5 Normal Right Flexion (C6) 5 Normal Extension (C7) 5 Normal Pronation 5 Normal Supination 5 Normal PT-OP-Q Treatments Start: 02/23/19 07:28 Freq: Status: Active Protocol: Document 03/20/19 16:00 MB (Rec: 03/20/19 17:08 MB [id number]) Manual Therapy Treatment Other Other Manual Treatments Pt agrees to Counterstrain to assess and treat fascial tension. PT treats stacks in the following areas: right vagus and right spinal vein extension. Suboccipital release after Counterstrain. PT-OP-R Modalities Start: 02/23/19 07:28 Freq: Status: Active Protocol: Document 03/09/19 14:34 SP (Rec: 03/09/19 15:43 SP [id number]) Hot Pack/Cold Pack Treatment Moist heat Location posterior neck Patient Position Sitting Treatment Duration (minutes) 10 Patient Tolerance Good PT-OP-T Assessment and Plan Start: 02/23/19 07:28 Freq: Status: Active Protocol: Document 03/20/19 16:00 MB (Rec: 03/20/19 17:08 MB [id number]) Physical Therapy Assessment Goals 4 Mcc Goal (LTG) Pt will perform progressive HEP with I including postural, flexibility, strengthening exercises by 04/25/19. 3 Mcc Goal (LTG) Pt will present with improved cervical AROM to at least 40 deg flexion, 30 deg extension and B rotation to 60 deg by 04/25/19. LTG Duration 8 weeks 2 Surveillance Supervisor Goal (LTG) Pt will report a 75% improvement in head, neck and shoulder pain by 04/25/19. LTG Duration 8 weeks 1 Surveillance Supervisor Goal (LTG) Pt will present with improved NDI score to reflect no more than 10% impairment by 04/25/19. LTG Duration 8 weeks Assessment Summary Assessment Pt con't with cervical and thoracic pain. She con't to have limited work hours. Given her long symptoms course and mechanism of injury, PT does feel that pt has cervicogenic components to symptoms. Con't manual and therapeutic exercise interventions. Physical Therapy Plan Frequency and Duration Frequency of Treatment 2x/Week Duration of Treatment 8 weeks Plan of Care Start Date 02/23/19 Plan of Care End Date 04/25/19 Therapeutic Interventions Therapeutic Interventions Home Exercise Program,Joint Mobilizations,Manual Therapy, Neuromuscular Re-education, Patient/Caregiver Education, Self-Care/Home Management,Soft Tissue Mobilization,Taping, Therapeutic Exercises Modalities Cold Pack/Ice Massage,Electric Stimulation,Hot Packs, Ultrasound Next Visit Focus/Plan Next Note Type Treatment Note Next Visit Plan Con't exercises progression for cervical stabilization and core and intrascapular and shoulder strengthening, consider ongoing Counterstrain
--- NOTE | 2019-03-26 15:22 | PT.OTN ---
Current Diagnoses Strain of muscle, fascia and tendon at neck level, initial encounter (03/26/19) Physical Therapy Treatment Note PT-OP-A Visit Information Start: 02/23/19 07:28 Freq: Status: Active Protocol: Document 03/26/19 14:33 MB (Rec: 03/26/19 15:21 MB [id number]) Out-Patient Physical Therapy Visit Information Visit Information Visit Type Treatment Note Visit Start Time 16:00 Visit Stop Time 16:53 Total Visit Minutes 53 Visit Number 11/15 Number of COLLECTION ADVISOR Visits 2 PT-OP-B Current Condition Start: 02/23/19 07:28 Freq: Status: Active Protocol: Document 02/23/19 07:29 MB (Rec: 02/23/19 08:10 MB [id number]) Current Condition History of Current Condition Onset Date 01/22/19 History of Current Condition Pt was going to take a step up attic steps holding flat screen TV when she turned to listen to someone asking her a question. She stood up into the door frame, hitting the top of her head and hurting her head and neck. She did not drop the TV. She went to the ED the next day. She was told she had a closed head injury but did not have head dxs. She was told she has a neck strain. She works at [employer]. She has been working. She had 1-1.5 weeks off. 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 Her shoulders bother her and she points to the top of her left shoulder. Pt reports discomfort in her shoulder blades. She sleeps on her side with 1 pillow under her head. She sleeps with her arm under her pillow depending on the time of night. Pt reports improving [place] pain. She reports radiating pain from back of neck up right side of head. She does report sensitivity to light and sound. She is having less sxs and has more trouble when tired. She has tendonitis and arthritis and does not think that she has increased paresthesias in her arms. She had initial confusion with light and noise sensitivity. Her neck pain gets up to 9/10. It always hurts and is 3/10 at the least . She has increased pain throughout the day. She can't ride in car d/t neck pain. The feeling of the road bothers her neck. She cannot use her CPAP machine d/t neck pain when she gets up in the morning. Pt reports lessening dizziness over the last week. Prior Treatments and Tests Cervical dxs: NAD, mild DDD Treatment Goals Patient/Caregiver Goals Decrease neck pain PT-OP-C Subjective Start: 02/23/19 07:28 Freq: Status: Active Protocol: Document 03/26/19 14:33 MB (Rec: 03/26/19 15:21 MB [id number]) OP-PT Subjective Patient Comments Patient Comments Pt states that she thought the Counterstrain was helpful but that her back was problematic after legs resting too high. 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 She still cannot lift heavy things. PT-OP-K Range of Motion Start: 02/23/19 07:28 Freq: Status: Active Protocol: Document 02/23/19 07:29 MB (Rec: 02/23/19 08:14 MB [id number]) Cervical Spine Range of Motion Cervical Spine Active Testing Position Standing Flexion 30 Extension 20 Rotation Left 40 Rotation Right 45 Lateral Flexion Left 18 Lateral Flexion Right 20 Comments No tunnel vision, numbness or paresthesias with any cervical motion, pt reports most pain with extension, rated 6-7/10 PT-OP-M Strength Start: 02/23/19 07:28 Freq: Status: Active Protocol: Document 02/23/19 07:29 MB (Rec: 02/23/19 08:16 MB [id number]) Shoulder Strength Shoulder Manual Muscle Testing Left Flexion 5 Normal Abduction (C5) 5 Normal External Rotation 5 Normal Internal Rotation 5 Normal Right Flexion 5 Normal Abduction (C5) 5 Normal External Rotation 5 Normal Internal Rotation 5 Normal Elbow/Forearm Strength Elbow and Forearm Manual Muscle Testing Left Flexion (C6) 5 Normal Extension (C7) 5 Normal Pronation 5 Normal Supination 5 Normal Right Flexion (C6) 5 Normal Extension (C7) 5 Normal Pronation 5 Normal Supination 5 Normal PT-OP-Q Treatments Start: 02/23/19 07:28 Freq: Status: Active Protocol: Document 03/26/19 14:33 MB (Rec: 03/26/19 15:21 MB [id number]) Therapeutic Exercises Standing Exercises Scapular retraction, shoulder extension and shoulder ER level 2 Comments Performed and added to HEP. Manual Therapy Treatment Other Other Manual Treatments STM B SCM with PT providing trigger point pressure and pt performing active cervical rotation, suboccipital release , Counterstrain treat B TENT PT-OP-R Modalities Start: 02/23/19 07:28 Freq: Status: Active Protocol: Document 03/09/19 14:34 SP (Rec: 03/09/19 15:43 SP [id number]) Hot Pack/Cold Pack Treatment Moist heat Location posterior neck Patient Position Sitting Treatment Duration (minutes) 10 Patient Tolerance Good PT-OP-T Assessment and Plan Start: 02/23/19 07:28 Freq: Status: Active Protocol: Document 03/26/19 14:33 MB (Rec: 03/26/19 15:21 MB [id number]) Physical Therapy Assessment Goals 4 Advertising Copy Writer Goal (LTG) Pt will perform progressive HEP with I including postural, flexibility, strengthening exercises by 04/25/19. 3 Advertising Copy Writer Goal (LTG) Pt will present with improved cervical AROM to at least 40 deg flexion, 30 deg extension and B rotation to 60 deg by 04/25/19. LTG Duration 8 weeks 2 Alf Goal (LTG) Pt will report a 75% improvement in head, neck and shoulder pain by 04/25/19. LTG Duration 8 weeks 1 Advertising Copy Writer Goal (LTG) Pt will present with improved NDI score to reflect no more than 10% impairment by 04/25/19. LTG Duration 8 weeks Assessment Summary Assessment Pt responds well to SCM work this date and this may assist with suboccipital pain. Con't progression. Physical Therapy Plan Frequency and Duration Frequency of Treatment 2x/Week Duration of Treatment 8 weeks Plan of Care Start Date 02/23/19 Plan of Care End Date 04/25/19 Therapeutic Interventions Therapeutic Interventions Home Exercise Program,Joint Mobilizations,Manual Therapy, Neuromuscular Re-education, Patient/Caregiver Education, Self-Care/Home Management,Soft Tissue Mobilization,Taping, Therapeutic Exercises Modalities Cold Pack/Ice Massage,Electric Stimulation,Hot Packs, Ultrasound Next Visit Focus/Plan Next Note Type Treatment Note Next Visit Plan Con't exercises progression for cervical stabilization and core and intrascapular and shoulder strengthening, consider ongoing Counterstrain
--- NOTE | 2019-03-29 15:10 | PT.OTN ---
Current Diagnoses Strain of muscle, fascia and tendon at neck level, initial encounter (03/29/19) Physical Therapy Treatment Note PT-OP-A Visit Information Start: 02/23/19 07:28 Freq: Status: Active Protocol: Document 03/29/19 14:29 MB (Rec: 03/29/19 15:09 MB [id number]) Out-Patient Physical Therapy Visit Information Visit Information Visit Type Treatment Note Visit Start Time 14:29 Visit Stop Time 15:09 Total Visit Minutes 40 Visit Number 12/16 Number of VAULT TELLER Visits 2 PT-OP-B Current Condition Start: 02/23/19 07:28 Freq: Status: Active Protocol: Document 02/23/19 07:29 MB (Rec: 02/23/19 08:10 MB [id number]) Current Condition History of Current Condition Onset Date 01/22/19 History of Current Condition Pt was going to take a step up attic steps holding flat screen TV when she turned to listen to someone asking her a question. She stood up into the door frame, hitting the top of her head and hurting her head and neck. She did not drop the TV. She went to the ED the next day. She was told she had a closed head injury but did not have head dxs. She was told she has a neck strain. She works at [employer]. She has been working. She had 1-1.5 weeks off. 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 Her shoulders bother her and she points to the top of her left shoulder. Pt reports discomfort in her shoulder blades. She sleeps on her side with 1 pillow under her head. She sleeps with her arm under her pillow depending on the time of night. Pt reports improving [place] pain. She reports radiating pain from back of neck up right side of head. She does report sensitivity to light and sound. She is having less sxs and has more trouble when tired. She has tendonitis and arthritis and does not think that she has increased paresthesias in her arms. She had initial confusion with light and noise sensitivity. Her neck pain gets up to 9/10. It always hurts and is 3/10 at the least . She has increased pain throughout the day. She can't ride in car d/t neck pain. The feeling of the road bothers her neck. She cannot use her CPAP machine d/t neck pain when she gets up in the morning. Pt reports lessening dizziness over the last week. Prior Treatments and Tests Cervical dxs: NAD, mild DDD Treatment Goals Patient/Caregiver Goals Decrease neck pain PT-OP-C Subjective Start: 02/23/19 07:28 Freq: Status: Active Protocol: Document 03/29/19 14:29 MB (Rec: 03/29/19 15:09 MB [id number]) OP-PT Subjective Patient Comments Patient Comments Pt states that she thinks she understands her exercises and they make her neck and shoulder feel better. PT-OP-K Range of Motion Start: 02/23/19 07:28 Freq: Status: Active Protocol: Document 02/23/19 07:29 MB (Rec: 02/23/19 08:14 MB [id number]) Cervical Spine Range of Motion Cervical Spine Active Testing Position Standing Flexion 30 Extension 20 Rotation Left 40 Rotation Right 45 Lateral Flexion Left 18 Lateral Flexion Right 20 Comments No tunnel vision, numbness or paresthesias with any cervical motion, pt reports most pain with extension, rated 6-7/10 PT-OP-M Strength Start: 02/23/19 07:28 Freq: Status: Active Protocol: Document 02/23/19 07:29 MB (Rec: 02/23/19 08:16 MB [id number]) Shoulder Strength Shoulder Manual Muscle Testing Left Flexion 5 Normal Abduction (C5) 5 Normal External Rotation 5 Normal Internal Rotation 5 Normal Right Flexion 5 Normal Abduction (C5) 5 Normal External Rotation 5 Normal Internal Rotation 5 Normal Elbow/Forearm Strength Elbow and Forearm Manual Muscle Testing Left Flexion (C6) 5 Normal Extension (C7) 5 Normal Pronation 5 Normal Supination 5 Normal Right Flexion (C6) 5 Normal Extension (C7) 5 Normal Pronation 5 Normal Supination 5 Normal PT-OP-Q Treatments Start: 02/23/19 07:28 Freq: Status: Active Protocol: Document 03/29/19 14:29 MB (Rec: 03/29/19 15:09 MB [id number]) Therapeutic Exercises Supine Exercises Self MWM SCM Comments Taught today and added to HEP Manual Therapy Treatment Other Other Manual Treatments STM B SCM and scalenes with PT providing trigger point pressure and pt performing active cervical rotation, suboccipital release PT-OP-R Modalities Start: 02/23/19 07:28 Freq: Status: Active Protocol: Document 03/09/19 14:34 SP (Rec: 03/09/19 15:43 SP [id number]) Hot Pack/Cold Pack Treatment Moist heat Location posterior neck Patient Position Sitting Treatment Duration (minutes) 10 Patient Tolerance Good PT-OP-T Assessment and Plan Start: 02/23/19 07:28 Freq: Status: Active Protocol: Document 03/29/19 14:29 MB (Rec: 03/29/19 15:09 MB [id number]) Physical Therapy Assessment Goals 4 Residential Goal (LTG) Pt will perform progressive HEP with I including postural, flexibility, strengthening exercises by 04/25/19. 3 Residential Goal (LTG) Pt will present with improved cervical AROM to at least 40 deg flexion, 30 deg extension and B rotation to 60 deg by 04/25/19. LTG Duration 8 weeks 2 Residential Goal (LTG) Pt will report a 75% improvement in head, neck and shoulder pain by 04/25/19. LTG Duration 8 weeks 1 Residential Goal (LTG) Pt will present with improved NDI score to reflect no more than 10% impairment by 04/25/19. LTG Duration 8 weeks Assessment Summary Assessment Added self-massage to SCM to HEP this date. Con't to progress HEP, core. Consider Counterstrain again in future treatments. Physical Therapy Plan Frequency and Duration Frequency of Treatment 2x/Week Duration of Treatment 8 weeks Plan of Care Start Date 02/23/19 Plan of Care End Date 04/25/19 Therapeutic Interventions Therapeutic Interventions Home Exercise Program,Joint Mobilizations,Manual Therapy, Neuromuscular Re-education, Patient/Caregiver Education, Self-Care/Home Management,Soft Tissue Mobilization,Taping, Therapeutic Exercises Modalities Cold Pack/Ice Massage,Electric Stimulation,Hot Packs, Ultrasound Next Visit Focus/Plan Next Note Type Treatment Note Next Visit Plan Con't exercises progression for cervical stabilization and core and intrascapular and shoulder strengthening, consider ongoing Counterstrain
--- NOTE | 2019-04-02 15:13 | PT.OTN ---
Current Diagnoses Strain of muscle, fascia and tendon at neck level, initial encounter (04/02/19) Physical Therapy Treatment Note PT-OP-A Visit Information Start: 02/23/19 07:28 Freq: Status: Active Protocol: Document 04/02/19 14:32 MB (Rec: 04/02/19 15:13 MB [id number]) Out-Patient Physical Therapy Visit Information Visit Information Visit Type Treatment Note Visit Note Shortened treatment d/t decreased pt cognitive tolerance to exercises, this is an ongoing presentation Visit Start Time 14:32 Visit Stop Time 15:07 Total Visit Minutes 35 Visit Number 01/16 Number of SHELLFISH PROCESSING LABORER Visits 2 PT-OP-B Current Condition Start: 02/23/19 07:28 Freq: Status: Active Protocol: Document 02/23/19 07:29 MB (Rec: 02/23/19 08:10 MB [id number]) Current Condition History of Current Condition Onset Date 01/22/19 History of Current Condition Pt was going to take a step up attic steps holding flat screen TV when she turned to listen to someone asking her a question. She stood up into the door frame, hitting the top of her head and hurting her head and neck. She did not drop the TV. She went to the ED the next day. She was told she had a closed head injury but did not have head dxs. She was told she has a neck strain. She works at [employer]. She has been working. She had 1-1.5 weeks off. 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 Her shoulders bother her and she points to the top of her left shoulder. Pt reports discomfort in her shoulder blades. She sleeps on her side with 1 pillow under her head. She sleeps with her arm under her pillow depending on the time of night. Pt reports improving [place] pain. She reports radiating pain from back of neck up right side of head. She does report sensitivity to light and sound. She is having less sxs and has more trouble when tired. She has tendonitis and arthritis and does not think that she has increased paresthesias in her arms. She had initial confusion with light and noise sensitivity. Her neck pain gets up to 9/10. It always hurts and is 3/10 at the least . She has increased pain throughout the day. She can't ride in car d/t neck pain. The feeling of the road bothers her neck. She cannot use her CPAP machine d/t neck pain when she gets up in the morning. Pt reports lessening dizziness over the last week. Prior Treatments and Tests Cervical dxs: NAD, mild DDD Treatment Goals Patient/Caregiver Goals Decrease neck pain PT-OP-C Subjective Start: 02/23/19 07:28 Freq: Status: Active Protocol: Document 04/02/19 14:32 MB (Rec: 04/02/19 15:13 MB [id number]) OP-PT Subjective Patient Comments Patient Comments Pt states that her neck is bothering her a little bit today, not a lot. She states that she saw the doctor and she got another note for restricted duties and to not have to wear a hat. PT-OP-K Range of Motion Start: 02/23/19 07:28 Freq: Status: Active Protocol: Document 02/23/19 07:29 MB (Rec: 02/23/19 08:14 MB [id number]) Cervical Spine Range of Motion Cervical Spine Active Testing Position Standing Flexion 30 Extension 20 Rotation Left 40 Rotation Right 45 Lateral Flexion Left 18 Lateral Flexion Right 20 Comments No tunnel vision, numbness or paresthesias with any cervical motion, pt reports most pain with extension, rated 6-7/10 PT-OP-M Strength Start: 02/23/19 07:28 Freq: Status: Active Protocol: Document 02/23/19 07:29 MB (Rec: 02/23/19 08:16 MB [id number]) Shoulder Strength Shoulder Manual Muscle Testing Left Flexion 5 Normal Abduction (C5) 5 Normal External Rotation 5 Normal Internal Rotation 5 Normal Right Flexion 5 Normal Abduction (C5) 5 Normal External Rotation 5 Normal Internal Rotation 5 Normal Elbow/Forearm Strength Elbow and Forearm Manual Muscle Testing Left Flexion (C6) 5 Normal Extension (C7) 5 Normal Pronation 5 Normal Supination 5 Normal Right Flexion (C6) 5 Normal Extension (C7) 5 Normal Pronation 5 Normal Supination 5 Normal PT-OP-Q Treatments Start: 02/23/19 07:28 Freq: Status: Active Protocol: Document 04/02/19 14:32 MB (Rec: 04/02/19 15:13 MB [id number]) Therapeutic Exercises Supine Exercises Abdominal drawing in and core progression Comments Performed this date, 5 reps and progressed lumbar rotation , HS Diaphragmatic breathing Comments Performed this date with abdominal exercises for rest break Sitting Exercises Upper cervical isometric Comments Performed both sides and added to HEP Anterior neck stretch Comments 2 reps both side and added to HEP PT-OP-R Modalities Start: 02/23/19 07:28 Freq: Status: Active Protocol: Document 03/09/19 14:34 SP (Rec: 03/09/19 15:43 SP [id number]) Hot Pack/Cold Pack Treatment Moist heat Location posterior neck Patient Position Sitting Treatment Duration (minutes) 10 Patient Tolerance Good PT-OP-T Assessment and Plan Start: 02/23/19 07:28 Freq: Status: Active Protocol: Document 04/02/19 14:32 MB (Rec: 04/02/19 15:13 MB [id number]) Physical Therapy Assessment Goals 4 Desolderer Goal (LTG) Pt will perform progressive HEP with I including postural, flexibility, strengthening exercises by 04/25/19. 3 Desolderer Goal (LTG) Pt will present with improved cervical AROM to at least 40 deg flexion, 30 deg extension and B rotation to 60 deg by 04/25/19. LTG Duration 8 weeks 2 Desolderer Goal (LTG) Pt will report a 75% improvement in head, neck and shoulder pain by 04/25/19. LTG Duration 8 weeks 1 Alf Goal (LTG) Pt will present with improved NDI score to reflect no more than 10% impairment by 04/25/19. LTG Duration 8 weeks Assessment Summary Assessment Progressed core strengthening today. Also added upper cervical isometric and anterior neck stretch. Pt gets flustered with exercises, closes her eyes and states she needs time to think through them. PT takes breaks to allow pt time. Physical Therapy Plan Frequency and Duration Frequency of Treatment 2x/Week Duration of Treatment 8 weeks Plan of Care Start Date 02/23/19 Plan of Care End Date 04/25/19 Therapeutic Interventions Therapeutic Interventions Home Exercise Program,Joint Mobilizations,Manual Therapy, Neuromuscular Re-education, Patient/Caregiver Education, Self-Care/Home Management,Soft Tissue Mobilization,Taping, Therapeutic Exercises Modalities Cold Pack/Ice Massage,Electric Stimulation,Hot Packs, Ultrasound Next Visit Focus/Plan Next Note Type Treatment Note Next Visit Plan Con't progression
--- NOTE | 2019-04-05 15:24 | PT.OTN ---
Current Diagnoses Strain of muscle, fascia and tendon at neck level, initial encounter (04/05/19) Physical Therapy Treatment Note PT-OP-A Visit Information Start: 02/23/19 07:28 Freq: Status: Active Protocol: Document 04/05/19 14:35 MB (Rec: 04/05/19 15:23 MB [id number]) Out-Patient Physical Therapy Visit Information Visit Information Visit Type Treatment Note Visit Start Time 14:35 Visit Stop Time 15:15 Total Visit Minutes 40 Visit Number 02/15 Number of COMMUNITY CENTER COORDINATOR Visits 2 PT-OP-B Current Condition Start: 02/23/19 07:28 Freq: Status: Active Protocol: Document 02/23/19 07:29 MB (Rec: 02/23/19 08:10 MB [id number]) Current Condition History of Current Condition Onset Date 01/22/19 History of Current Condition Pt was going to take a step up attic steps holding flat screen TV when she turned to listen to someone asking her a question. She stood up into the door frame, hitting the top of her head and hurting her head and neck. She did not drop the TV. She went to the ED the next day. She was told she had a closed head injury but did not have head dxs. She was told she has a neck strain. She works at [employer]. She has been working. She had 1-1.5 weeks off. 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 Her shoulders bother her and she points to the top of her left shoulder. Pt reports discomfort in her shoulder blades. She sleeps on her side with 1 pillow under her head. She sleeps with her arm under her pillow depending on the time of night. Pt reports improving [place] pain. She reports radiating pain from back of neck up right side of head. She does report sensitivity to light and sound. She is having less sxs and has more trouble when tired. She has tendonitis and arthritis and does not think that she has increased paresthesias in her arms. She had initial confusion with light and noise sensitivity. Her neck pain gets up to 9/10. It always hurts and is 3/10 at the least . She has increased pain throughout the day. She can't ride in car d/t neck pain. The feeling of the road bothers her neck. She cannot use her CPAP machine d/t neck pain when she gets up in the morning. Pt reports lessening dizziness over the last week. Prior Treatments and Tests Cervical dxs: NAD, mild DDD Treatment Goals Patient/Caregiver Goals Decrease neck pain PT-OP-C Subjective Start: 02/23/19 07:28 Freq: Status: Active Protocol: Document 04/05/19 14:35 MB (Rec: 04/05/19 15:23 MB [id number]) OP-PT Subjective Patient Comments Patient Comments Pt states that she is doing better. 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 PT-OP-K Range of Motion Start: 02/23/19 07:28 Freq: Status: Active Protocol: Document 02/23/19 07:29 MB (Rec: 02/23/19 08:14 MB [id number]) Cervical Spine Range of Motion Cervical Spine Active Testing Position Standing Flexion 30 Extension 20 Rotation Left 40 Rotation Right 45 Lateral Flexion Left 18 Lateral Flexion Right 20 Comments No tunnel vision, numbness or paresthesias with any cervical motion, pt reports most pain with extension, rated 6-7/10 PT-OP-M Strength Start: 02/23/19 07:28 Freq: Status: Active Protocol: Document 02/23/19 07:29 MB (Rec: 02/23/19 08:16 MB [id number]) Shoulder Strength Shoulder Manual Muscle Testing Left Flexion 5 Normal Abduction (C5) 5 Normal External Rotation 5 Normal Internal Rotation 5 Normal Right Flexion 5 Normal Abduction (C5) 5 Normal External Rotation 5 Normal Internal Rotation 5 Normal Elbow/Forearm Strength Elbow and Forearm Manual Muscle Testing Left Flexion (C6) 5 Normal Extension (C7) 5 Normal Pronation 5 Normal Supination 5 Normal Right Flexion (C6) 5 Normal Extension (C7) 5 Normal Pronation 5 Normal Supination 5 Normal PT-OP-Q Treatments Start: 02/23/19 07:28 Freq: Status: Active Protocol: Document 04/05/19 14:35 MB (Rec: 04/05/19 15:23 MB [id number]) Manual Therapy Treatment Manual Techniques Counterstrain Comments Pt agrees to Counterstrain to assess and treat fascial tightness. PT treats stacks:L DPR cervical and thoracic sinuvertebral in same area-- neural fascia PT-OP-R Modalities Start: 02/23/19 07:28 Freq: Status: Active Protocol: Document 03/09/19 14:34 SP (Rec: 03/09/19 15:43 SP [id number]) Hot Pack/Cold Pack Treatment Moist heat Location posterior neck Patient Position Sitting Treatment Duration (minutes) 10 Patient Tolerance Good PT-OP-T Assessment and Plan Start: 02/23/19 07:28 Freq: Status: Active Protocol: Document 04/05/19 14:35 MB (Rec: 04/05/19 15:23 MB [id number]) Physical Therapy Assessment Goals 4 Penitentiary Goal (LTG) Pt will perform progressive HEP with I including postural, flexibility, strengthening exercises by 04/25/19. 3 Keypuncher Goal (LTG) Pt will present with improved cervical AROM to at least 40 deg flexion, 30 deg extension and B rotation to 60 deg by 04/25/19. LTG Duration 8 weeks 2 Penitentiary Goal (LTG) Pt will report a 75% improvement in head, neck and shoulder pain by 04/25/19. LTG Duration 8 weeks 1 Penitentiary Goal (LTG) Pt will present with improved NDI score to reflect no more than 10% impairment by 04/25/19. LTG Duration 8 weeks Assessment Summary Assessment Pt responds well to Counterstrain and suboccipital release and her left cervical rotation (active) is better after treatment. She con't with sacral pain and has been using a recumbent bike. PT encourages her to not use bike if she has other exercise options. Sacral tension flexes her spine and likely contributes to tight cervical paraspinals. Consider adding pelvic realignment exercises to help with alignment as well as ongoing somatic neural fascia scan. Physical Therapy Plan Frequency and Duration Frequency of Treatment 2x/Week Duration of Treatment 8 weeks Plan of Care Start Date 02/23/19 Plan of Care End Date 04/25/19 Therapeutic Interventions Therapeutic Interventions Home Exercise Program,Joint Mobilizations,Manual Therapy, Neuromuscular Re-education, Patient/Caregiver Education, Self-Care/Home Management,Soft Tissue Mobilization,Taping, Therapeutic Exercises Modalities Cold Pack/Ice Massage,Electric Stimulation,Hot Packs, Ultrasound Next Visit Focus/Plan Next Note Type Treatment Note Next Visit Plan Pelvic realignment exercises to help with postural alignmnet.
--- NOTE | 2019-04-09 15:15 | PT.OPPN ---
Current Diagnoses Strain of muscle, fascia and tendon at neck level, initial encounter (04/09/19) Physical Therapy Progress Note PT-OP-A Visit Information Start: 02/23/19 07:28 Freq: Status: Active Protocol: Document 04/09/19 14:35 MB (Rec: 04/09/19 14:41 MB [id number]) Out-Patient Physical Therapy Visit Information Visit Information Visit Type Treatment Note Visit Start Time 14:35 Visit Stop Time 15:15 Total Visit Minutes 40 Visit Number 03/18 Number of POSTING CLERK Visits 2 PT-OP-B Current Condition Start: 02/23/19 07:28 Freq: Status: Active Protocol: Document 02/23/19 07:29 MB (Rec: 02/23/19 08:10 MB [id number]) Current Condition History of Current Condition Onset Date 01/22/19 History of Current Condition Pt was going to take a step up attic steps holding flat screen TV when she turned to listen to someone asking her a question. She stood up into the door frame, hitting the top of her head and hurting her head and neck. She did not drop the TV. She went to the ED the next day. She was told she had a closed head injury but did not have head dxs. She was told she has a neck strain. She works at [employer]. She has been working. She had 1-1.5 weeks off. 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 Her shoulders bother her and she points to the top of her left shoulder. Pt reports discomfort in her shoulder blades. She sleeps on her side with 1 pillow under her head. She sleeps with her arm under her pillow depending on the time of night. Pt reports improving [place] pain. She reports radiating pain from back of neck up right side of head. She does report sensitivity to light and sound. She is having less sxs and has more trouble when tired. She has tendonitis and arthritis and does not think that she has increased paresthesias in her arms. She had initial confusion with light and noise sensitivity. Her neck pain gets up to 9/10. It always hurts and is 3/10 at the least . She has increased pain throughout the day. She can't ride in car d/t neck pain. The feeling of the road bothers her neck. She cannot use her CPAP machine d/t neck pain when she gets up in the morning. Pt reports lessening dizziness over the last week. Prior Treatments and Tests Cervical dxs: NAD, mild DDD Treatment Goals Patient/Caregiver Goals Decrease neck pain PT-OP-C Subjective Start: 02/23/19 07:28 Freq: Status: Active Protocol: Document 04/09/19 14:35 MB (Rec: 04/09/19 14:41 MB [id number]) OP-PT Subjective Patient Comments Patient Comments Pt states that her neck is more achy than painful. 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 The anterior neck stretch is helpful. 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 She has sacral pain. It is further between episodes of sharp shooting neck pain. Pt reports a 40% improvement in neck pain since starting PT . She can read longer than she used to be able to do. She can sit and enjoy a movie. PT-OP-K Range of Motion Start: 02/23/19 07:28 Freq: Status: Active Protocol: Document 02/23/19 07:29 MB (Rec: 02/23/19 08:14 MB [id number]) Cervical Spine Range of Motion Cervical Spine Active Testing Position Standing Flexion 30 Extension 20 Rotation Left 40 Rotation Right 45 Lateral Flexion Left 18 Lateral Flexion Right 20 Comments No tunnel vision, numbness or paresthesias with any cervical motion, pt reports most pain with extension, rated 6-7/10 PT-OP-M Strength Start: 02/23/19 07:28 Freq: Status: Active Protocol: Document 02/23/19 07:29 MB (Rec: 02/23/19 08:16 MB [id number]) Shoulder Strength Shoulder Manual Muscle Testing Left Flexion 5 Normal Abduction (C5) 5 Normal External Rotation 5 Normal Internal Rotation 5 Normal Right Flexion 5 Normal Abduction (C5) 5 Normal External Rotation 5 Normal Internal Rotation 5 Normal Elbow/Forearm Strength Elbow and Forearm Manual Muscle Testing Left Flexion (C6) 5 Normal Extension (C7) 5 Normal Pronation 5 Normal Supination 5 Normal Right Flexion (C6) 5 Normal Extension (C7) 5 Normal Pronation 5 Normal Supination 5 Normal PT-OP-T Assessment and Plan Start: 02/23/19 07:28 Freq: Status: Active Protocol: Document 04/09/19 14:35 MB (Rec: 04/09/19 15:15 MB [id number]) Physical Therapy Assessment Goals 4 Circuit Rider Goal (LTG) Pt will perform progressive HEP with I including postural, flexibility, strengthening exercises by 05/26/19. 04/09/19: Pt is performing all exercises and she thinks they are helpful. 3 Circuit Rider Goal (LTG) Pt will present with improved cervical AROM to at least 40 deg flexion, 30 deg extension and B rotation to 60 deg by 04/25/19. 04/09/19: Cervical extension 20 deg; flexion 35 deg; rotation right 45 deg and left 42 deg. LTG Duration 8 weeks 2 Group Home Goal (LTG) Pt will report a 75% improvement in head, neck and shoulder pain by 05/26/19. 04/09/19: Pt reports a 40% improvement in pain since starting PT. LTG Duration 8 weeks 1 Circuit Rider Goal (LTG) Pt will present with improved NDI score to reflect no more than 10% impairment by 05/26/19. 04/09/19: Pt presents with improved NDI score to reflect 40% impairment LTG Duration 8 weeks Assessment Summary Assessment Pt has progressed towards all PT goals since starting PT. These include neck pain, NDI score, cervical ROM and performance of HEP. Work tasks are better but not perfect. 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 Con't PT to further maximize goals. In addition to above exercises, PT and pt review several of her exercises to discuss form. She would have like therapy ball exercises. Physical Therapy Plan Frequency and Duration Frequency of Treatment 2x/Week Duration of Treatment 8 weeks Plan of Care Start Date 04/09/19 Plan of Care End Date 05/26/19 Therapeutic Interventions Therapeutic Interventions Home Exercise Program,Joint Mobilizations,Manual Therapy, Neuromuscular Re-education, Patient/Caregiver Education, Self-Care/Home Management,Soft Tissue Mobilization,Taping, Therapeutic Exercises Modalities Cold Pack/Ice Massage,Electric Stimulation,Hot Packs, Ultrasound Next Visit Focus/Plan Next Note Type Treatment Note Next Visit Plan Monitor to see if pelvic realignment exercises help with posture and neck pain. Consider deep neck flexor strengthening in supine and then quadriped, PNF
--- NOTE | 2019-04-09 15:23 | PT.OPPOC ---
Current Diagnoses Strain of muscle, fascia and tendon at neck level, initial encounter (04/09/19) Visit Care Team Role Provider Type Chanel Beckman PA-C Primary Care Provider Advanced Irrigation Pump Installer Specialty: Medical Address: [address] [place] [address], [address], [address] Email: [email or web address] Manrique Attending Provider Advanced Irrigation Pump Installer Specialty: Family Practice Address: [address] [place] [address], [id number] Email: [email or web address] Plan Of Care PT-OP-T Assessment and Plan Start: 02/23/19 07:28 Freq: Status: Active Protocol: Document 04/09/19 14:35 MB (Rec: 04/09/19 15:15 MB [id number]) Physical Therapy Assessment Goals 4 Correction Goal (LTG) Pt will perform progressive HEP with I including postural, flexibility, strengthening exercises by 05/26/19. 04/09/19: Pt is performing all exercises and she thinks they are helpful. 3 Correction Goal (LTG) Pt will present with improved cervical AROM to at least 40 deg flexion, 30 deg extension and B rotation to 60 deg by 04/25/19. 04/09/19: Cervical extension 20 deg; flexion 35 deg; rotation right 45 deg and left 42 deg. LTG Duration 8 weeks 2 Correction Goal (LTG) Pt will report a 75% improvement in head, neck and shoulder pain by 05/26/19. 04/09/19: Pt reports a 40% improvement in pain since starting PT. LTG Duration 8 weeks 1 Shop Director Goal (LTG) Pt will present with improved NDI score to reflect no more than 10% impairment by 05/26/19. 04/09/19: Pt presents with improved NDI score to reflect 40% impairment LTG Duration 8 weeks Assessment Summary Assessment Pt has progressed towards all PT goals since starting PT. These include neck pain, NDI score, cervical ROM and performance of HEP. Work tasks are better but not perfect. 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 Con't PT to further maximize goals. In addition to above exercises, PT and pt review several of her exercises to discuss form. She would have like therapy ball exercises. Physical Therapy Plan Frequency and Duration Frequency of Treatment 2x/Week Duration of Treatment 8 weeks Plan of Care Start Date 04/09/19 Plan of Care End Date 05/26/19 Therapeutic Interventions Therapeutic Interventions Home Exercise Program,Joint Mobilizations,Manual Therapy, Neuromuscular Re-education, Patient/Caregiver Education, Self-Care/Home Management,Soft Tissue Mobilization,Taping, Therapeutic Exercises Modalities Cold Pack/Ice Massage,Electric Stimulation,Hot Packs, Ultrasound Next Visit Focus/Plan Next Note Type Treatment Note Next Visit Plan Monitor to see if pelvic realignment exercises help with posture and neck pain. Consider deep neck flexor strengthening in supine and then quadrursula, PNF Plan of Care Plan of Care Start Date 04/09/19 Plan of Care End Date 05/26/19
--- NOTE | 2019-04-12 15:15 | PT.OTN ---
Current Diagnoses Strain of muscle, fascia and tendon at neck level, initial encounter (04/12/19) Physical Therapy Treatment Note PT-OP-A Visit Information Start: 02/23/19 07:28 Freq: Status: Active Protocol: Document 04/12/19 14:31 MB (Rec: 04/12/19 15:15 MB [id number]) Out-Patient Physical Therapy Visit Information Visit Information Visit Type Treatment Note Visit Start Time 14:31 Visit Stop Time 15:11 Total Visit Minutes 40 Visit Number 04/17 Number of CHICKEN STUFFER Visits 2 PT-OP-B Current Condition Start: 02/23/19 07:28 Freq: Status: Active Protocol: Document 02/23/19 07:29 MB (Rec: 02/23/19 08:10 MB [id number]) Current Condition History of Current Condition Onset Date 01/22/19 History of Current Condition Pt was going to take a step up attic steps holding flat screen TV when she turned to listen to someone asking her a question. She stood up into the door frame, hitting the top of her head and hurting her head and neck. She did not drop the TV. She went to the ED the next day. She was told she had a closed head injury but did not have head dxs. She was told she has a neck strain. She works at [employer]. She has been working. She had 1-1.5 weeks off. 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 Her shoulders bother her and she points to the top of her left shoulder. Pt reports discomfort in her shoulder blades. She sleeps on her side with 1 pillow under her head. She sleeps with her arm under her pillow depending on the time of night. Pt reports improving [place] pain. She reports radiating pain from back of neck up right side of head. She does report sensitivity to light and sound. She is having less sxs and has more trouble when tired. She has tendonitis and arthritis and does not think that she has increased paresthesias in her arms. She had initial confusion with light and noise sensitivity. Her neck pain gets up to 9/10. It always hurts and is 3/10 at the least . She has increased pain throughout the day. She can't ride in car d/t neck pain. The feeling of the road bothers her neck. She cannot use her CPAP machine d/t neck pain when she gets up in the morning. Pt reports lessening dizziness over the last week. Prior Treatments and Tests Cervical dxs: NAD, mild DDD Treatment Goals Patient/Caregiver Goals Decrease neck pain PT-OP-C Subjective Start: 02/23/19 07:28 Freq: Status: Active Protocol: Document 04/12/19 14:31 MB (Rec: 04/12/19 15:15 MB [id number]) OP-PT Subjective Patient Comments Patient Comments Pt's neck is feeling pretty good. It is more like achy pain and not too painful. She was able to work with the pain yesterday. PT-OP-K Range of Motion Start: 02/23/19 07:28 Freq: Status: Active Protocol: Document 02/23/19 07:29 MB (Rec: 02/23/19 08:14 MB [id number]) Cervical Spine Range of Motion Cervical Spine Active Testing Position Standing Flexion 30 Extension 20 Rotation Left 40 Rotation Right 45 Lateral Flexion Left 18 Lateral Flexion Right 20 Comments No tunnel vision, numbness or paresthesias with any cervical motion, pt reports most pain with extension, rated 6-7/10 PT-OP-M Strength Start: 02/23/19 07:28 Freq: Status: Active Protocol: Document 02/23/19 07:29 MB (Rec: 02/23/19 08:16 MB [id number]) Shoulder Strength Shoulder Manual Muscle Testing Left Flexion 5 Normal Abduction (C5) 5 Normal External Rotation 5 Normal Internal Rotation 5 Normal Right Flexion 5 Normal Abduction (C5) 5 Normal External Rotation 5 Normal Internal Rotation 5 Normal Elbow/Forearm Strength Elbow and Forearm Manual Muscle Testing Left Flexion (C6) 5 Normal Extension (C7) 5 Normal Pronation 5 Normal Supination 5 Normal Right Flexion (C6) 5 Normal Extension (C7) 5 Normal Pronation 5 Normal Supination 5 Normal PT-OP-Q Treatments Start: 02/23/19 07:28 Freq: Status: Active Protocol: Document 04/12/19 14:31 MB (Rec: 04/12/19 15:15 MB [id number]) Therapeutic Exercises Supine Exercises Pelvic realignment exercises Comments Performed this date Prone Exercises Thread the needle, quadriped Comments Cues for chin tuck, thread the needle x3 Sidelying Exercises Open book B Comments Performed and added to HEP Standing Exercises Against wall: ballet arm shoulder flexion and PNF2 with head following Comments 5 reps of both B and consider adding to HEP in future Manual Therapy Treatment Other Other Manual Treatments Pt agrees to Counterstrain to assess and treat fascial restrictions and PT treats stacks neural fascia anterior somatic. PT-OP-R Modalities Start: 02/23/19 07:28 Freq: Status: Active Protocol: Document 03/09/19 14:34 SP (Rec: 03/09/19 15:43 SP [id number]) Hot Pack/Cold Pack Treatment Moist heat Location posterior neck Patient Position Sitting Treatment Duration (minutes) 10 Patient Tolerance Good PT-OP-T Assessment and Plan Start: 02/23/19 07:28 Freq: Status: Active Protocol: Document 04/12/19 14:31 MB (Rec: 04/12/19 15:15 MB [id number]) Physical Therapy Assessment Goals 4 Gardening Instructor Goal (LTG) Pt will perform progressive HEP with I including postural, flexibility, strengthening exercises by 05/26/19. 04/09/19: Pt is performing all exercises and she thinks they are helpful. 3 Gardening Instructor Goal (LTG) Pt will present with improved cervical AROM to at least 40 deg flexion, 30 deg extension and B rotation to 60 deg by 04/25/19. 04/09/19: Cervical extension 20 deg; flexion 35 deg; rotation right 45 deg and left 42 deg. LTG Duration 8 weeks 2 Gardening Instructor Goal (LTG) Pt will report a 75% improvement in head, neck and shoulder pain by 05/26/19. 04/09/19: Pt reports a 40% improvement in pain since starting PT. LTG Duration 8 weeks 1 Gardening Instructor Goal (LTG) Pt will present with improved NDI score to reflect no more than 10% impairment by 05/26/19. 04/09/19: Pt presents with improved NDI score to reflect 40% impairment LTG Duration 8 weeks Assessment Summary Assessment Pt presents with decreased left cervical rotation with exercises this date and added mobility exercises with thoracic spine today. Continue to work on shoulder strengthening with gentle overhead exercises with postural cues. Physical Therapy Plan Frequency and Duration Frequency of Treatment 2x/Week Duration of Treatment 8 weeks Plan of Care Start Date 04/09/19 Plan of Care End Date 05/26/19 Therapeutic Interventions Therapeutic Interventions Home Exercise Program,Joint Mobilizations,Manual Therapy, Neuromuscular Re-education, Patient/Caregiver Education, Self-Care/Home Management,Soft Tissue Mobilization,Taping, Therapeutic Exercises Modalities Cold Pack/Ice Massage,Electric Stimulation,Hot Packs, Ultrasound Next Visit Focus/Plan Next Note Type Treatment Note Next Visit Plan Consider ongoing deep neck flexor strengthening in supine and then quadriped, PNF
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
--- NOTE | 2019-04-26 15:19 | PT.OTN ---
Current Diagnoses Strain of muscle, fascia and tendon at neck level, initial encounter (04/26/19) Physical Therapy Treatment Note PT-OP-A Visit Information Start: 02/23/19 07:28 Freq: Status: Active Protocol: Document 04/26/19 14:35 MB (Rec: 04/26/19 15:19 MB [id number]) Out-Patient Physical Therapy Visit Information Visit Information Visit Type Treatment Note Visit Start Time 14:35 Visit Stop Time 15:15 Total Visit Minutes 40 Visit Number Number of BLADE CHANGER Visits 2 PT-OP-B Current Condition Start: 02/23/19 07:28 Freq: Status: Active Protocol: Document 02/23/19 07:29 MB (Rec: 02/23/19 08:10 MB [id number]) Current Condition History of Current Condition Onset Date 01/22/19 History of Current Condition Pt was going to take a step up attic steps holding flat screen TV when she turned to listen to someone asking her a question. She stood up into the door frame, hitting the top of her head and hurting her head and neck. She did not drop the TV. She went to the ED the next day. She was told she had a closed head injury but did not have head dxs. She was told she has a neck strain. She works at [employer]. She has been working. She had 1-1.5 weeks off. 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 Her shoulders bother her and she points to the top of her left shoulder. Pt reports discomfort in her shoulder blades. She sleeps on her side with 1 pillow under her head. She sleeps with her arm under her pillow depending on the time of night. Pt reports improving [place] pain. She reports radiating pain from back of neck up right side of head. She does report sensitivity to light and sound. She is having less sxs and has more trouble when tired. She has tendonitis and arthritis and does not think that she has increased paresthesias in her arms. She had initial confusion with light and noise sensitivity. Her neck pain gets up to 9/10. It always hurts and is 3/10 at the least . She has increased pain throughout the day. She can't ride in car d/t neck pain. The feeling of the road bothers her neck. She cannot use her CPAP machine d/t neck pain when she gets up in the morning. Pt reports lessening dizziness over the last week. Prior Treatments and Tests Cervical dxs: NAD, mild DDD Treatment Goals Patient/Caregiver Goals Decrease neck pain PT-OP-C Subjective Start: 02/23/19 07:28 Freq: Status: Active Protocol: Document 04/26/19 14:35 MB (Rec: 04/26/19 15:19 MB [id number]) OP-PT Subjective Patient Comments Patient Comments Pt states that she is doing okay. 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 She is walking her dog and dancing in her room for exercise. She forgot and picked up an ice bucket. PT-OP-K Range of Motion Start: 02/23/19 07:28 Freq: Status: Active Protocol: Document 02/23/19 07:29 MB (Rec: 02/23/19 08:14 MB [id number]) Cervical Spine Range of Motion Cervical Spine Active Testing Position Standing Flexion 30 Extension 20 Rotation Left 40 Rotation Right 45 Lateral Flexion Left 18 Lateral Flexion Right 20 Comments No tunnel vision, numbness or paresthesias with any cervical motion, pt reports most pain with extension, rated 6-7/10 PT-OP-M Strength Start: 02/23/19 07:28 Freq: Status: Active Protocol: Document 02/23/19 07:29 MB (Rec: 02/23/19 08:16 MB [id number]) Shoulder Strength Shoulder Manual Muscle Testing Left Flexion 5 Normal Abduction (C5) 5 Normal External Rotation 5 Normal Internal Rotation 5 Normal Right Flexion 5 Normal Abduction (C5) 5 Normal External Rotation 5 Normal Internal Rotation 5 Normal Elbow/Forearm Strength Elbow and Forearm Manual Muscle Testing Left Flexion (C6) 5 Normal Extension (C7) 5 Normal Pronation 5 Normal Supination 5 Normal Right Flexion (C6) 5 Normal Extension (C7) 5 Normal Pronation 5 Normal Supination 5 Normal PT-OP-Q Treatments Start: 02/23/19 07:28 Freq: Status: Active Protocol: Document 04/26/19 14:35 MB (Rec: 04/26/19 15:19 MB [id number]) Cardio Equipment Upper Body Ergometer (UBE) Other Standing, 2.5 forward and 2.5 back Therapeutic Exercises Standing Exercises Shoulder and elbow extension with band over door Comments 10 reps with level 2 band and added to HEP Cervical rotation with end-range head nods Comments 4 reps and ed to perform throughout the day Scapular retraction, shoulder extension and shoulder ER level 2 Comments Teal band given for home, 10 reps today PT-OP-R Modalities Start: 02/23/19 07:28 Freq: Status: Active Protocol: Document 03/09/19 14:34 SP (Rec: 03/09/19 15:43 SP [id number]) Hot Pack/Cold Pack Treatment Moist heat Location posterior neck Patient Position Sitting Treatment Duration (minutes) 10 Patient Tolerance Good PT-OP-T Assessment and Plan Start: 02/23/19 07:28 Freq: Status: Active Protocol: Document 04/26/19 14:35 MB (Rec: 04/26/19 15:19 MB [id number]) Physical Therapy Assessment Goals 4 Care Home Goal (LTG) Pt will perform progressive HEP with I including postural, flexibility, strengthening exercises by 05/26/19. 04/09/19: Pt is performing all exercises and she thinks they are helpful. 3 Care Home Goal (LTG) Pt will present with improved cervical AROM to at least 40 deg flexion, 30 deg extension and B rotation to 60 deg by 04/25/19. 04/09/19: Cervical extension 20 deg; flexion 35 deg; rotation right 45 deg and left 42 deg. LTG Duration 8 weeks 2 Technical Staff Assistant Goal (LTG) Pt will report a 75% improvement in head, neck and shoulder pain by 05/26/19. 04/09/19: Pt reports a 40% improvement in pain since starting PT. LTG Duration 8 weeks 1 Care Home Goal (LTG) Pt will present with improved NDI score to reflect no more than 10% impairment by 05/26/19. 04/09/19: Pt presents with improved NDI score to reflect 40% impairment LTG Duration 8 weeks Assessment Summary Assessment In addition to exercises above , revised pt's HEP, increased band resistance to level 2 for scapular exercises and edited how often pt is to do exercises. Pt is feeling 75% better and she might d/c soon, perhaps next treatment date. She has been very compliant with PT. Physical Therapy Plan Frequency and Duration Frequency of Treatment 2x/Week Duration of Treatment 8 weeks Plan of Care Start Date 04/09/19 Plan of Care End Date 05/26/19 Therapeutic Interventions Therapeutic Interventions Home Exercise Program,Joint Mobilizations,Manual Therapy, Neuromuscular Re-education, Patient/Caregiver Education, Self-Care/Home Management,Soft Tissue Mobilization,Taping, Therapeutic Exercises Modalities Cold Pack/Ice Massage,Electric Stimulation,Hot Packs, Ultrasound Next Visit Focus/Plan Next Note Type Treatment Note Next Visit Plan Review exercises as needed and prepare for d/c
--- NOTE | 2019-04-30 15:05 | PT.OTN ---
Current Diagnoses Strain of muscle, fascia and tendon at neck level, initial encounter (04/30/19) Physical Therapy Treatment Note PT-OP-A Visit Information Start: 02/23/19 07:28 Freq: Status: Active Protocol: Document 04/30/19 14:34 MB (Rec: 04/30/19 15:04 MB [id number]) Out-Patient Physical Therapy Visit Information Visit Information Visit Type Treatment Note Visit Start Time 14:34 Visit Stop Time 15:04 Total Visit Minutes 30 Visit Number Number of BUSINESS INFORMATION CONSULTANT Visits 2 PT-OP-B Current Condition Start: 02/23/19 07:28 Freq: Status: Active Protocol: Document 02/23/19 07:29 MB (Rec: 02/23/19 08:10 MB [id number]) Current Condition History of Current Condition Onset Date 01/22/19 History of Current Condition Pt was going to take a step up attic steps holding flat screen TV when she turned to listen to someone asking her a question. She stood up into the door frame, hitting the top of her head and hurting her head and neck. She did not drop the TV. She went to the ED the next day. She was told she had a closed head injury but did not have head dxs. She was told she has a neck strain. She works at [employer]. She has been working. She had 1-1.5 weeks off. 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 Her shoulders bother her and she points to the top of her left shoulder. Pt reports discomfort in her shoulder blades. She sleeps on her side with 1 pillow under her head. She sleeps with her arm under her pillow depending on the time of night. Pt reports improving [place] pain. She reports radiating pain from back of neck up right side of head. She does report sensitivity to light and sound. She is having less sxs and has more trouble when tired. She has tendonitis and arthritis and does not think that she has increased paresthesias in her arms. She had initial confusion with light and noise sensitivity. Her neck pain gets up to 9/10. It always hurts and is 3/10 at the least . She has increased pain throughout the day. She can't ride in car d/t neck pain. The feeling of the road bothers her neck. She cannot use her CPAP machine d/t neck pain when she gets up in the morning. Pt reports lessening dizziness over the last week. Prior Treatments and Tests Cervical dxs: NAD, mild DDD Treatment Goals Patient/Caregiver Goals Decrease neck pain PT-OP-C Subjective Start: 02/23/19 07:28 Freq: Status: Active Protocol: Document 04/30/19 14:34 MB (Rec: 04/30/19 15:04 MB [id number]) OP-PT Subjective Patient Comments Patient Comments Pt had to work late last night . She worked 7 hours. She went to bed late and slept 5 hours . She has 5/10 pain today. Pt states that she feels she will be able to self-manage her pain when she gets it. Pt reports an overall 75% improvement in neck pain since starting PT. Pt can wear her CPAP again. 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 PT-OP-K Range of Motion Start: 02/23/19 07:28 Freq: Status: Active Protocol: Document 02/23/19 07:29 MB (Rec: 02/23/19 08:14 MB [id number]) Cervical Spine Range of Motion Cervical Spine Active Testing Position Standing Flexion 30 Extension 20 Rotation Left 40 Rotation Right 45 Lateral Flexion Left 18 Lateral Flexion Right 20 Comments No tunnel vision, numbness or paresthesias with any cervical motion, pt reports most pain with extension, rated 6-7/10 PT-OP-M Strength Start: 02/23/19 07:28 Freq: Status: Active Protocol: Document 02/23/19 07:29 MB (Rec: 02/23/19 08:16 MB [id number]) Shoulder Strength Shoulder Manual Muscle Testing Left Flexion 5 Normal Abduction (C5) 5 Normal External Rotation 5 Normal Internal Rotation 5 Normal Right Flexion 5 Normal Abduction (C5) 5 Normal External Rotation 5 Normal Internal Rotation 5 Normal Elbow/Forearm Strength Elbow and Forearm Manual Muscle Testing Left Flexion (C6) 5 Normal Extension (C7) 5 Normal Pronation 5 Normal Supination 5 Normal Right Flexion (C6) 5 Normal Extension (C7) 5 Normal Pronation 5 Normal Supination 5 Normal PT-OP-Q Treatments Start: 02/23/19 07:28 Freq: Status: Active Protocol: Document 04/30/19 14:34 MB (Rec: 04/30/19 15:04 MB [id number]) Therapeutic Exercises Supine Exercises Self MWM SCM Comments Performed this date and pt reports improved pain PT-OP-R Modalities Start: 02/23/19 07:28 Freq: Status: Active Protocol: Document 03/09/19 14:34 SP (Rec: 03/09/19 15:43 SP [id number]) Hot Pack/Cold Pack Treatment Moist heat Location posterior neck Patient Position Sitting Treatment Duration (minutes) 10 Patient Tolerance Good PT-OP-T Assessment and Plan Start: 02/23/19 07:28 Freq: Status: Active Protocol: Document 04/30/19 14:34 MB (Rec: 04/30/19 15:04 MB [id number]) Physical Therapy Assessment Goals 4 Group Home Goal (LTG) Pt will perform progressive HEP with I including postural, flexibility, strengthening exercises by 05/26/19. 04/09/19: Pt is performing all exercises and she thinks they are helpful. 04/30/19: Pt has been performing progressive HEP 3 Notched Blade Loader Goal (LTG) Pt will present with improved cervical AROM to at least 40 deg flexion, 30 deg extension and B rotation to 60 deg by 04/25/19. 04/09/19: Cervical extension 20 deg; flexion 35 deg; rotation right 45 deg and left 42 deg. 04/30/19: AROM extension 40; flexion 42; B rotation 60 deg LTG Duration 8 weeks 2 Group Home Goal (LTG) Pt will report a 75% improvement in head, neck and shoulder pain by 05/26/19. 04/09/19: Pt reports a 40% improvement in pain since starting PT. 04/30/19: Goal met LTG Duration 8 weeks 1 Notched Blade Loader Goal (LTG) Pt will present with improved NDI score to reflect no more than 10% impairment by 05/26/19. 04/09/19: Pt presents with improved NDI score to reflect 40% impairment 04/30/19: NDI reflects 30% impairment LTG Duration 8 weeks Assessment Summary Assessment Along with above exercises today, reviewed HEP and pt understands all exercises. Pt has met the following goals since starting PT: AROM cervical extension, flexion and rotation, performance of HEP and reports of 75% improvement in pain. Pt con't with some functional limitations but is back to work and feels she is able to self-massage with HEP. Pt has maximized PT potential. Will d /c PT. Physical Therapy Plan Frequency and Duration Frequency of Treatment 2x/Week Duration of Treatment 8 weeks Plan of Care Start Date 04/09/19 Plan of Care End Date 05/26/19 Therapeutic Interventions Therapeutic Interventions Home Exercise Program,Joint Mobilizations,Manual Therapy, Neuromuscular Re-education, Patient/Caregiver Education, Self-Care/Home Management,Soft Tissue Mobilization,Taping, Therapeutic Exercises Modalities Cold Pack/Ice Massage,Electric Stimulation,Hot Packs, Ultrasound
== END 2019-06-05 11:44 ==
LOC: PHYS 14:30
PROVIDERS: PCP Physician Assistant; Visit Provider Nurse Practitioner Family
DX: S16.1XXA Strain of muscle, fascia and tendon at neck level, initial encounter (principal)
CPT/HCPCS: 97010; 97110; 97140; 97161

== ENCOUNTER → 2019-10-04 11:06 | Outpatient (CLI) | payer OTHER, MEDICAID, SELFPAY ==
[2019-10-04 12:15] LABS: Hematocrit 39.8 % (36-46); Hemoglobin 13.2 g/dL (12.0-16.0); Mean Corpuscular HGB Conc 33.2 % (30-36); Mean Corpuscular Hemoglobin 26.4 PG (26-34); Mean Corpuscular Volume 79.5 fL (80-100); Platelet Count 250 X10^3/uL (150-400); Red Cell Distribution Width 15.2 % (11.6-14.8); White Blood Cell Count 8.8 X10^3/uL (4.5-11.0)
[2019-10-04 12:25] LABS: BUN Creatinine Ratio 19.7 (6-22); Blood Urea Nitrogen 14 mg/dL (7-17); Calcium 9.7 mg/dL (8.4-10.2); Carbon Dioxide 23 mmol/L (22-32); Chloride 105 mmol/L (98-107); Cholesterol 175 mg/dL (140-199); Estimated Glomerular Filt Rate > 60.0 mL/min (>60); Glucose 101 mg/dL (70-100); HDL Cholesterol 47 mg/dL (40-60); HEMOLYSIS < 15 (0-50); LDL Cholesterol Calculated 104 mg/dL (<100); Potassium 4.1 mmol/L (3.4-5.1); Sodium 138 mmol/L (137-145); Triglycerides 118 mg/dL (35-150)
[2019-10-04 13:47] LABS: TSH w/ Reflex to FT4 3.05 uIU/mL (0.47-4.68)
== END ==
PROVIDERS: PCP Physician Assistant; Referring Provider Nurse Practitioner Family; Visit Provider Nurse Practitioner Family
DX: I10 Essential (primary) hypertension (principal); E78.5 Hyperlipidemia, unspecified; F41.9 Anxiety disorder, unspecified
CPT/HCPCS: 36415; 80048; 80061; 84443; 85027

== ENCOUNTER → 2019-11-08 11:07 | Outpatient (CLI) | payer OTHER, MEDICAID, SELFPAY ==
--- NOTE | 2019-11-08 11:08 | DI.RAD.S_ITS ---
PROCEDURE: XR CHEST 2V INDICATIONS: Cough TECHNIQUE: 2 views of the chest were acquired. COMPARISON: [facility], , CHEST 2 VIEW, 01/17/2016, 18:00. FINDINGS: Surgical changes and devices: None. Lungs and pleura: Lungs are clear. No pleural effusions or pneumothorax. Mediastinum: Mediastinal contours are normal. Heart size is normal. Bones and chest wall: No suspicious bony abnormalities. Soft tissues appear unremarkable. IMPRESSION: No acute cardiopulmonary process demonstrated radiographically. Dictated by: Jamie Bay M.D. on 11/08/2019 at 11:26 Approved by: Jamie Bay M.D. on 11/08/2019 at 11:26
== END ==
PROVIDERS: PCP Nurse Practitioner Family; Referring Provider Nurse Practitioner Family; Visit Provider Nurse Practitioner Family
DX: R05 Cough (principal)
CPT/HCPCS: 71046

== ENCOUNTER → 2020-05-13 14:58 | Outpatient (CLI) | payer OTHER, MEDICAID, SELFPAY ==
[2020-05-13 15:39] LABS: Hematocrit 38.2 % (36-46); Hemoglobin 12.3 g/dL (12.0-16.0); Mean Corpuscular HGB Conc 32.2 % (30-36); Mean Corpuscular Hemoglobin 25.1 PG (26-34); Mean Corpuscular Volume 77.9 fL (80-100); Platelet Count 236 X10^3/uL (150-400); Red Cell Distribution Width 14.9 % (11.6-14.8); White Blood Cell Count 8.2 X10^3/uL (4.5-11.0)
[2020-05-13 16:02] LABS: Alanine Aminotransferase 24 IU/L (<35); Albumin 4.6 g/dL (3.5-5.0); Albumin Globulin Ratio 1.5 (1.0-2.8); Alkaline Phosphatase 61 U/L (38-126); Aspartate Aminotransferase 23 IU/L (14-36); BUN Creatinine Ratio 13.7 (6-22); Bilirubin Total 0.6 mg/dL (0.2-1.3); Blood Urea Nitrogen 10 mg/dL (7-17); Calcium 9.2 mg/dL (8.4-10.2); Carbon Dioxide 29 mmol/L (22-32); Chloride 102 mmol/L (98-107); Estimated Glomerular Filt Rate > 60.0 mL/min (>60); Globulin 3.1 g/dL (1.7-4.1); Glucose 87 mg/dL (70-100); HEMOLYSIS < 15 (0-50); Potassium 4.2 mmol/L (3.4-5.1); Sodium 137 mmol/L (137-145); Total Protein 7.7 g/dL (6.3-8.2)
== END ==
PROVIDERS: PCP Nurse Practitioner Family; Referring Provider Nurse Practitioner Family; Visit Provider Nurse Practitioner Family
DX: Z00.00 Encounter for general adult medical examination without abnormal findings (principal); I10 Essential (primary) hypertension
CPT/HCPCS: 36415; 80053; 85027

== ENCOUNTER → 2020-06-19 09:48 | Outpatient (CLI) | payer OTHER, MEDICAID, SELFPAY ==
[2020-06-19 11:04] LABS: COVID19 -Nasal RAPID Negative (Negative)
[2020-06-19 11:17] LABS: Add Manual Diff / Slide Review NO; Basophils Absolute Auto 100 /uL (0-100); Basophils Percent Auto 0.7 % (0-2); Eosinophils Absolute Auto 200 /uL (0-450); Eosinophils Percent Auto 1.8 % (2-4); Hematocrit 39.9 % (36-46); Hemoglobin 12.7 g/dL (12.0-16.0); Lymphocytes Absolute Auto 3300 /uL (1100-4500); Lymphocytes Percent Auto 36.3 % (25-40); Mean Corpuscular HGB Conc 31.7 % (30-36); Mean Corpuscular Hemoglobin 24.6 PG (26-34); Mean Corpuscular Volume 77.6 fL (80-100); Monocytes Absolute Auto 700 /uL (0-900); Monocytes Percent Auto 7.3 % (3-14); Neutrophils Absolute Auto 5000 /uL (1500-7000); Neutrophils Percent Auto 53.9 % (50-75); Platelet Count 240 X10^3/uL (150-400); Red Blood Cell Count 5.15 X10^6/uL (4.0-5.2); Red Cell Distribution Width 14.8 % (11.6-14.8); White Blood Cell Count 9.2 X10^3/uL (4.5-11.0)
== END ==
PROVIDERS: PCP Nurse Practitioner Family; Referring Provider Nurse Practitioner Family; Visit Provider Nurse Practitioner Family
DX: R05 Cough (principal); J06.9 Acute upper respiratory infection, unspecified
CPT/HCPCS: 36415; 85025; 87635

== ENCOUNTER → 2020-07-15 11:26 | Outpatient (CLI) | payer OTHER, MEDICAID, SELFPAY | PROVIDERS: PCP Nurse Practitioner Family; Visit Provider Physician Assistant | DX: N30.01 Acute cystitis with hematuria (principal) | CPT/HCPCS: 87086 ==

== ENCOUNTER → 2020-07-24 13:45 | Outpatient (CLI) | payer OTHER, MEDICAID, SELFPAY ==
[2020-07-24 14:33] LABS: Bacteria Urine None Seen; RBC Urine None Seen (0-5/HPF)
[2020-07-24 14:48] LABS: Appearance Urine UA CLEAR; Bilirubin Urine UA NEGATIVE (NEGATIVE); Color Urine UA YELLOW; Glucose Urine UA NEGATIVE (Negative); Ketones Urine UA NEGATIVE (NEGATIVE); Leukocyte Esterase Urine UA NEGATIVE (NEGATIVE); Nitrite Urine UA NEGATIVE (Negative); Occult Blood Urine UA NEGATIVE (Negative); Protein Urine UA NEGATIVE (Negative); Urobilinogen Urine UA 0.2 E.U./dL (0.2)
[2020-07-24 15:08] LABS: Culture Indicated Urine Cult Not Indicated; Squamous Epithelial Cell Urine 0-1 /HPF (0-5/HPF); WBC Urine 0-1/HPF (0-5/HPF)
== END ==
PROVIDERS: PCP Nurse Practitioner Family; Visit Provider Nurse Practitioner Family
DX: R30.0 Dysuria (principal)
CPT/HCPCS: 81001

== ENCOUNTER → 2021-01-20 08:30 | Outpatient (CLI) | payer OTHER, MEDICAID, SELFPAY ==
[2021-01-20 09:13] LABS: COVID19 -Nasal RAPID Negative (Negative)
== END ==
PROVIDERS: PCP Nurse Practitioner Family; Visit Provider Physician Assistant
DX: Z20.822 Contact with and (suspected) exposure to COVID-19 (principal)
CPT/HCPCS: 87635

== ENCOUNTER → 2021-02-05 15:25 | Outpatient (CLI) | payer OTHER, MEDICAID, SELFPAY ==
--- NOTE | 2021-02-05 15:27 | DI.RAD.S_ITS ---
PROCEDURE: XR CHEST 2V INDICATIONS: Chronic shortness of breath, cough TECHNIQUE: 2 views of the chest were acquired. COMPARISON: [facility], CR, XR CHEST 2V, 11/08/2019, 11:06. FINDINGS: Surgical changes and devices: None. Lungs and pleura: Lungs are clear. No pleural effusions or pneumothorax. Mediastinum: Mediastinal contours are normal. Heart size is normal. Bones and chest wall: No suspicious bony abnormalities. Soft tissues appear unremarkable. IMPRESSION: No acute cardiopulmonary abnormality. Dictated by: Edison Sharma M.D. on 02/05/2021 at 15:58 Approved by: Edison Sharma M.D. on 02/05/2021 at 15:58
== END ==
PROVIDERS: PCP Nurse Practitioner Family; Referring Provider Nurse Practitioner Family; Visit Provider Nurse Practitioner Family
DX: R06.02 Shortness of breath
CPT/HCPCS: 71046

== ENCOUNTER → 2021-02-06 10:40 | Outpatient (CLI) | payer OTHER, MEDICAID, SELFPAY ==
[2021-02-06 12:12] LABS: Add Manual Diff / Slide Review NO; Basophils Absolute Auto 0 /uL (0-100); Basophils Percent Auto 0.7 % (0-2); Eosinophils Absolute Auto 100 /uL (0-450); Eosinophils Percent Auto 1.3 % (2-4); Hematocrit 38.4 % (36-46); Hemoglobin 12.4 g/dL (12.0-16.0); Lymphocytes Absolute Auto 2100 /uL (1100-4500); Lymphocytes Percent Auto 29.7 % (25-40); Mean Corpuscular HGB Conc 32.2 % (30-36); Mean Corpuscular Hemoglobin 24.5 PG (26-34); Mean Corpuscular Volume 76.1 fL (80-100); Monocytes Absolute Auto 600 /uL (0-900); Monocytes Percent Auto 8.5 % (3-14); Neutrophils Absolute Auto 4200 /uL (1500-7000); Neutrophils Percent Auto 59.8 % (50-75); Platelet Count 216 X10^3/uL (150-400); Red Blood Cell Count 5.05 X10^6/uL (4.0-5.2); Red Cell Distribution Width 16.4 % (11.6-14.8); White Blood Cell Count 7.1 X10^3/uL (4.5-11.0)
[2021-02-06 12:54] LABS: Alanine Aminotransferase 20 IU/L (<35); Albumin 4.5 g/dL (3.5-5.0); Albumin Globulin Ratio 1.6 (1.0-2.8); Alkaline Phosphatase 59 U/L (38-126); Aspartate Aminotransferase 20 IU/L (14-36); BUN Creatinine Ratio 12.9 (6-22); Bilirubin Total 0.7 mg/dL (0.2-1.3); Blood Urea Nitrogen 11 mg/dL (7-17); Calcium 9.7 mg/dL (8.4-10.2); Carbon Dioxide 20 mmol/L (22-32); Chloride 109 mmol/L (98-107); Cholesterol 166 mg/dL (140-199); Estimated Glomerular Filt Rate > 60.0 mL/min (>60); Globulin 2.8 g/dL (1.7-4.1); Glucose 107 mg/dL (70-100); HDL Cholesterol 42 mg/dL (40-60); HEMOLYSIS < 15 (0-50); LDL Cholesterol Calculated 92 mg/dL (<100); Potassium 3.7 mmol/L (3.4-5.1); Sodium 140 mmol/L (137-145); Total Protein 7.3 g/dL (6.3-8.2); Triglycerides 158 mg/dL (35-150)
[2021-02-06 13:41] LABS: TSH w/ Reflex to FT4 2.62 uIU/mL (0.47-4.68)
== END ==
PROVIDERS: PCP Nurse Practitioner Family; Referring Provider Nurse Practitioner Family; Visit Provider Nurse Practitioner Family
DX: E78.5 Hyperlipidemia, unspecified (principal); R06.02 Shortness of breath; Z00.00 Encounter for general adult medical examination without abnormal findings
CPT/HCPCS: 36415; 80053; 80061; 84443; 85025

== ENCOUNTER → 2021-02-19 09:49 | Outpatient (CLI) | payer OTHER, MEDICAID, SELFPAY ==
--- NOTE | 2021-02-19 09:50 | DI.US.S_ITS ---
PROCEDURE: US PELVIC COMPLETE INDICATIONS: irregular menses, probable PCOS TECHNIQUE: Real-time scanning was performed of the pelvic organs, with image documentation. Additional endovaginal scanning was necessary due to incomplete visualization of the adnexal and endometrial structures by transabdominal scanning. COMPARISON: None. FINDINGS: Uterus: Uterus is normal in size at 8.2 x 3.4 x 4.8 cm. The endometrium measures 5 mm in combined thickness. Ovaries: The ovaries are overall not well seen. The right ovary appears to measure 6.4 x 3.6 x 5.1 cm. The left ovary measures 2.9 x 2.1 x 1.2 cm. Scrutiny is given to the ovarian follicles. The follicles are not well seen on this limited study, yet there does not appear to be an excessive number of follicles. The ovaries have a normal sonographic appearance. No adnexal masses are seen. Other: No pathologic free abdominal or pelvic fluid. This study is limited by body habitus. IMPRESSION: Limited study, with poor visualization of the ovaries. The right ovary does appear to be enlarged on this study, yet without a focal lesion seen. No excessive number of ovarian follicles can be seen on this study. If clinically appropriate, please consider short-term follow-up versus a gynecological protocol MRI for further evaluation (assuming that there is no contraindication). Dictated by: Hung Guzmán M.D. on 02/19/2021 at 11:35 Approved by: Hung Guzmán M.D. on 02/19/2021 at 11:51
== END ==
PROVIDERS: PCP Nurse Practitioner Family; Referring Provider Nurse Practitioner Family; Visit Provider Nurse Practitioner Family
DX: N92.6 Irregular menstruation, unspecified (principal); E66.01 Morbid (severe) obesity due to excess calories; Z68.41 Body mass index [BMI] 40.0-44.9, adult
CPT/HCPCS: 76830; 76856

== ENCOUNTER → 2021-02-27 09:06 | Outpatient (CLI) | payer OTHER, MEDICAID, SELFPAY ==
--- NOTE | 2021-02-27 09:07 | DI.ECHO.S_ITS ---
[facility] +---------+ : : [address] : [address] : : : : [id number] : : : : Phone: [phone]+ Echocardiogram Report + + :Name: ALLISON SCOTT Study Date: 02/27/2021 Height: 67 in : :[facility] ReadingLocation: Weight: 288 lb : : Gender: Female BSA: 2.4 m2 : :: 1985 Age: 35 yrs BP: 110/70 mmHg: :Reason For Study: CHRONIC SOB : : Performed By: Theo Gold : :Referring: CHAMP GREWAL : + + Interpretation Summary Normal sinus rhythm. Normal LV size, wall thickness, wall motion and LV systolic function. EF is 60-65%. Normal diastolic function. Normal chamber sizes. No significant valvular abnormalities. No prior study available for comparison. Procedure: A two-dimensional transthoracic echocardiogram with color flow and Doppler was performed. The study quality was technically adequate. There is no prior echocardiogram noted for this patient. The patient was in normal sinus rhythm during the exam. Left Ventricle: The left ventricle is normal in size. There is normal left ventricular wall thickness. The ejection fraction is estimated to be 60-65%. There are no focal wall motion abnormalities. Diastolic parameters suggest probable normal left ventricular diastolic function and normal filling pressures. Right Ventricle: The right ventricle is normal in size and function. Atria: Both atria are normal in size. There is no Doppler evidence for an atrial septal defect. Mitral Valve: The mitral valve is normal in structure and function. There is trace mitral regurgitation. Aortic Valve: The aortic valve is trileaflet. The aortic valve opens well. No aortic regurgitation is present. Tricuspid Valve: The tricuspid valve is normal in structure and function. No tricuspid regurgitation. Pulmonary artery pressures cannot be estimated because of the lack of a measurable TR jet velocity. Pulmonic Valve: The pulmonic valve is not well visualized. Great Vessels: The aortic root is normal size. The dimensions of the ascending aorta are normal. The pulmonary artery is normal size. The IVC is of normal diameter and collapses greater than 50% with a sniff. This suggests a low right atrial pressure of 3 mm Hg. Pericardium/ Pleura There is no pericardial effusion. There is no pleural effusion. MMode/2D Measurements & Calculations LVIDd: 4.8 cm LVOT diam: 2.2 cm LVIDs: 2.7 cm Ao root diam: 2.9 cm FS: 44.8 % asc Aorta Diam: 3.0 cm EPSS: 0.38 cm Ao Arch Diam (Prox Trans): 2.1 cm IVSd: 0.81 cm LVPWd: 0.89 cm LV watters. diameter/BSA (cm/m^2): 2.0 LV sys. diameter/BSA (cm/m^2): 1.1 LA dimension: 4.2 cm RA long axis: 5.3 cm LA A2 area: 23.0 cm2 RA area: 16.0 cm2 LA A4 area: 21.4 cm2 RA vol: 41.1 ml LA length (vol): 5.7 cm RA : 17.4 ml/m2 LA vol: 73.5 ml IVC diam: 2.1 cm LA vol index: 31.1 ml/m2 TAPSE: 2.2 cm Doppler Measurements & Calculations Ao V2 max: 163.5 cm/sec LVOT Max Goldy: 109.3 cm/sec Ao V2 mean: 114.2 cm/sec LV V1 max P.8 mmHg Ao max P.7 mmHg LV V1 VTI: 27.3 cm Ao mean P.9 mmHg BETH(I,D): 2.9 cm2 Ao V2 VTI: 37.0 cm BETH(V,D): 2.6 cm2 sev ratio: 0.74 BETH indexed to BSA (cm^2/m^2): 1.2 MV E max goldy: 116.0 cm/sec PA V2 max: 90.0 cm/sec MV A max goldy: 93.9 cm/sec PA V2 mean: 67.9 cm/sec MV E/A: 1.2 PA mean P.0 mmHg Med Peak E' Goldy: 9.6 cm/sec PA pr(Accel): 41.3 mmHg E/E' med: 12.1 Lat Peak E' Goldy: 13.3 cm/sec E/E' lat: 8.7 E/e' average: 10.4 MV dec time: 0.24 sec SV(LVOT): 107.4 ml Electronically signed by: Roxanne Berrios M.D. on Reading Physician:02/28/2021 12:07 AM
== END ==
PROVIDERS: PCP Nurse Practitioner Family; Referring Provider Nurse Practitioner Family; Visit Provider Nurse Practitioner Family
DX: R06.02 Shortness of breath (principal); R05.9 Cough, unspecified
CPT/HCPCS: 93306

== ENCOUNTER → 2021-07-02 12:16 | Outpatient (CLI) | payer OTHER, MEDICAID, SELFPAY ==
--- NOTE | 2021-07-02 12:18 | DI.US.S_ITS ---
PROCEDURE: US PELVIC COMPLETE INDICATIONS: Ovarian enlargement TECHNIQUE: Real-time scanning was performed of the pelvic organs, with image documentation. Additional endovaginal scanning was necessary due to incomplete visualization of the adnexal and endometrial structures by transabdominal scanning. COMPARISON: [facility], , US PELVIC COMPLETE, 02/19/2021, 10:07. FINDINGS: Uterus: Uterus is anteverted and normal in size at 7.4 x 4.0 x 4.6 cm. The myometrium is homogeneous. The endometrium measures 6.7 mm combined thickness. Ovaries: The right ovary measures 6.2 x 3.4 x 4.1 cm, previously 6.4 x 3.6 x 5.1. The left ovary measures 3.3 x 2.4 x 2.0 cm,. The ovaries have a normal sonographic appearance. Less than 12 follicles can be seen in each ovary. No adnexal masses are seen. Poor visualization of the ovaries Other: No pathologic free abdominal or pelvic fluid. IMPRESSION: Persistent slight enlargement of the right ovary is never the left improved from the prior exam. No focal intrinsic lesion or adnexal mass. Approved by: Galileo Hale M.D. on 07/02/2021 at 16:40
== END ==
PROVIDERS: PCP Nurse Practitioner Family; Referring Provider Specialist; Visit Provider Specialist
DX: R10.2 Pelvic and perineal pain (principal); N83.8 Other noninflammatory disorders of ovary, fallopian tube and broad ligament
CPT/HCPCS: 76830; 76856

== ENCOUNTER → 2021-10-06 09:09 | Outpatient (CLI) | payer OTHER, MEDICAID, SELFPAY ==
[2021-10-06 09:57] LABS: Hemoglobin A1C% w Est Avg Glu 5.5 % (4.0-6.0)
== END ==
PROVIDERS: PCP Registered Nurse Diabetes Educator; Referring Provider Obstetrics & Gynecology; Visit Provider Obstetrics & Gynecology
DX: E28.2 Polycystic ovarian syndrome (principal)
CPT/HCPCS: 36415; 83036

== ENCOUNTER → 2022-02-04 10:44 | Outpatient (CLI) | payer OTHER, MEDICAID, SELFPAY ==
[2022-02-04 12:39] LABS: Hematocrit 37.3 % (36-46); Hemoglobin 12.4 g/dL (12.0-16.0); Mean Corpuscular HGB Conc 33.2 % (30-36); Mean Corpuscular Hemoglobin 24.9 PG (26-34); Mean Corpuscular Volume 75.1 fL (80-100); Platelet Count 259 X10^3/uL (150-400); Red Blood Cell Count 4.97 X10^6/uL (4.0-5.2); Red Cell Distribution Width 15.7 % (11.6-14.8); White Blood Cell Count 7.9 X10^3/uL (4.5-11.0)
[2022-02-04 12:40] LABS: Alanine Aminotransferase 21 IU/L (<35); Albumin 4.5 g/dL (3.5-5.0); Albumin Globulin Ratio 1.2 (1.0-2.8); Alkaline Phosphatase 65 U/L (38-126); Aspartate Aminotransferase 19 IU/L (14-36); BUN Creatinine Ratio 19.7 (6-22); Bilirubin Total 0.5 mg/dL (0.2-1.3); Blood Urea Nitrogen 15 mg/dL (7-17); Carbon Dioxide 25 mmol/L (22-32); Chloride 103 mmol/L (98-107); Cholesterol 172 mg/dL (140-199); Estimated Glomerular Filt Rate > 60 mL/min (>60); Globulin 3.7 g/dL (1.7-4.1); Glucose 109 mg/dL (70-100); HDL Cholesterol 41 mg/dL (40-60); HEMOLYSIS < 15 (0-50); LDL Cholesterol Calculated 106 mg/dL (<100); Potassium 3.9 mmol/L (3.4-5.1); Sodium 139 mmol/L (137-145); Total Protein 8.2 g/dL (6.3-8.2); Triglycerides 124 mg/dL (35-150)
[2022-02-04 12:46] LABS: Hemoglobin A1C% w Est Avg Glu 5.7 % (4.0-6.0)
[2022-02-04 13:10] LABS: TSH w/ Reflex to FT4 3.33 uIU/mL (0.47-4.68)
== END ==
PROVIDERS: PCP Registered Nurse Diabetes Educator; Referring Provider Registered Nurse Diabetes Educator; Visit Provider Registered Nurse Diabetes Educator
DX: E78.5 Hyperlipidemia, unspecified (principal); I10 Essential (primary) hypertension; R73.01 Impaired fasting glucose
CPT/HCPCS: 36415; 80053; 80061; 83036; 84443; 85027

== ENCOUNTER → 2022-03-11 14:56 | Outpatient (CLI) | payer OTHER, MEDICAID, SELFPAY ==
--- NOTE | 2022-03-11 14:57 | DI.US.S_ITS ---
PROCEDURE: US PELVIC COMPLETE INDICATIONS: PELVIC PAIN. HISTORY OF RIGHT OVARIAN ENLARGEMENT TECHNIQUE: Real-time scanning was performed of the pelvic organs, with image documentation. Additional endovaginal scanning was necessary due to incomplete visualization of the adnexal and endometrial structures by transabdominal scanning. COMPARISON: [facility], US, US PELVIC COMPLETE, 02/19/2021, 10:07. [facility], US, US PELVIC COMPLETE, 07/02/2021, 12:40. FINDINGS: Uterus: Uterus is anteverted and normal in size at 7.8 x 4.1 x 4.1 cm. The myometrium is homogeneous. The endometrium measures 8.1 mm combined thickness. Multiple small nabothian cyst again noted, several which are mildly complex which has a similar appearance compared to prior exam. Ovaries: Right ovary is enlarged measuring 5.9 x 6.0 x 3.6 cm with volume estimated at 66 cc which appears similar prior examination. No definitive masses seen. Left ovary is not visualized. Other: No pathologic free abdominal or pelvic fluid. IMPRESSION: 1. Multiple small nabothian cysts, several which appear complex and appears similar prior examination. 2. Enlargement of the right ovary redemonstrated with no definitive sonographically visible mass. Given the persistence, if indicated, gynecologic protocol MRI could be performed for further more definitive characterization. We strive to produce accurate, complete, and clear reports of imaging services. To assist us in improving patient care, this report was composed using standard report templates and voice recognition software. Therefore, it may contain abnormal punctuation, insertions and/or omissions. Occasional wrong-word or sound-alike substitutions may occur. Though we review the report and make efforts to correct it, we do recommend that the report be read carefully in proper context to recognize any text inaccuracies. Dictated by: Elian Pizano [facility] Interpreted: Kingston Eagle MD on 03/11/2022 at 16:12 Approved by: Kingston Eagle M.D. on 03/11/2022 at 17:11
== END ==
PROVIDERS: PCP Registered Nurse Diabetes Educator; Referring Provider Registered Nurse Diabetes Educator; Visit Provider Registered Nurse Diabetes Educator
DX: R10.2 Pelvic and perineal pain (principal); N88.8 Other specified noninflammatory disorders of cervix uteri; N83.8 Other noninflammatory disorders of ovary, fallopian tube and broad ligament
CPT/HCPCS: 76830; 76856; 93976

== ENCOUNTER → 2022-04-01 13:39 | Outpatient (CLI) | payer OTHER, MEDICAID, SELFPAY ==
[2022-04-01 16:18] LABS: Cancer Antigen 125 8.2 U/mL (0-35)
== END ==
PROVIDERS: PCP Registered Nurse Diabetes Educator; Referring Provider Physician Assistant Medical; Visit Provider Physician Assistant Medical
DX: N83.8 Other noninflammatory disorders of ovary, fallopian tube and broad ligament (principal)
CPT/HCPCS: 36415; 86304

== ENCOUNTER → 2022-08-26 13:14 | Outpatient (CLI) | payer OTHER, MEDICAID, SELFPAY ==
[2022-08-26 15:08] LABS: Cholesterol 244 mg/dL (140-199); HDL Cholesterol 42 mg/dL (40-60); LDL Cholesterol Calculated 165 mg/dL (<100); Triglycerides 185 mg/dL (35-150)
== END ==
PROVIDERS: PCP Registered Nurse Diabetes Educator; Referring Provider Registered Nurse Diabetes Educator; Visit Provider Registered Nurse Diabetes Educator
DX: E78.5 Hyperlipidemia, unspecified (principal)
CPT/HCPCS: 36415; 80061

== ENCOUNTER 2022-09-23 08:12 | Inpatient (IN) | payer OTHER, MEDICAID, SELFPAY ==
[2022-09-16 09:13] VITALS: BMI 45.6
[2022-09-23] VITALS (12 sets, daily range): BP systolic 125–173; BP diastolic 71–97; PULSE 70–83; RESP 8–20; TEMP 36.3–37.3; O2SAT 96–100; BMI 47.0
--- NOTE | 2022-09-23 | PATH_ITS ---
[facility] Accession Number: [id number] No. of containers..01 Tissue . 01 Material submitted: . uterus - UTERUS, RIGHT AND LEFT FALLOPIAN TUBES, OVARIES . 01 Diagnosis: Uterus, Right and Left Fallopian Tubes, Ovaries, Laparoscopic Supracervical Hysterectomy (Weight 45 grams) and Bilateral Salpingo-oophorectomy (ovary weight 45 grams and 42 grams): Portions of disordered proliferative endometrium; negative for glandular hyperplasia, cytologic atypia, or malignancy. Myometrium with no significant atypia. Uterine serosa with no significant atypia. First described fallopian tube with no significant atypia. First described ovary with stromal hyperplasia, focal, mild stromal hyperthecosis, and with multiple, benign cortical follicular cysts. Second described fallopian tube with a benign paratubal cyst (18 mm) and no significant atypia. Second described ovary with stromal hyperplasia, focal, mild stromal hyperthecosis, and with multiple, benign cortical follicular cysts. [facility] 09/29/2022 1320 Local . 01 Electronically signed: . Joycelyn Baca MD, Pathologist NPI- [id number] . 01 Gross description: . The specimen is received in formalin labeled with the patient's name, , and uterus, bilateral tubes and ovaries, and consists of a disrupted uterus (45 g, 8.2 x 4.6 x 2.7 cm) with the first unoriented, fimbriated fallopian tube (3.2 x 0.6 cm) attached to the first unoriented ovary (45 g, 6.6 x 4.1 x 2.6 cm), second unoriented fimbriated fallopian tube (2.8 x 0.7 cm), and attached second unoriented ovary (42 g, 6.5 x 3.7 x 2.5 cm) with no cervix identified. The uterine serosa is aguillon and smooth with no evidence of hemorrhage or adhesion identified. The endometrium is aguillon-brown, velvety, and averages 0.1 cm thick. The myometrium is aguillon and trabecular with no nodules or lesions identified. The first fimbriated fallopian tube has aguillon, smooth serosa with no cystic structures identified. Sectioning reveals an unremarkable stellate lumen. The first ovary has a aguillon, relatively smooth external surface that is inked blue. Sectioning reveals a aguillon to orange, mottled, firm cut surface with multiple small cystic structures located peripherally ranging from 0.1 cm to 1.0 cm in greatest dimension with smooth davidson and are filled with aguillon serous fluid. The second fallopian tube has aguillon, smooth serosa and is significant for a pedunculated cystic structure at a fimbriated end measuring 1.8 cm in greatest dimension filled with aguillon serous fluid. Sectioning reveals an unremarkable stellate lumen. The second ovary has a aguillon, relatively smooth external surface that is inked black. Sectioning reveals a mottled, orange to aguillon, firm cut surface with multiple cystic structures 0.3-1.2 cm in greatest dimension with smooth davidson and contents ranging from serous to hemorrhagic. Water Fitness Instructor sections are submitted as follows: A1: Endometrium. A2: Serosa. A3: First fallopian tube to include one-half of bisected fimbriae and cross sections. A4-A5: Composite full-thickness section of first ovary. A6-A7: Composite full-thickness section of first ovary. A8: Additional first ovary. A9: Second fallopian tube to include one-half of bisected fimbriae, cross section, and cystic structure. A10-A11: Composite section of second ovary. A12-A13: Composite section of second ovary. A14: Additional second ovary. ([id number]) /FRR 09/25/2022 1248 Local . 01 Pathologist provided ICD-10: R10.2, N94.89 . 01 CPT . 689124 Specimen Comment: A courtesy copy of this report has been sent to [phone] Performed at: 01 [facility] [address] [place] [address], [place], [place] [id number] MD Tyrone Spencer MD Phone: [phone]
--- NOTE | 2022-09-23 08:03 | PM.GYNHP.1 ---
History of Present Illness History of Present Illness Reason for admission: vaginal bleeding and pelvic pain Narrative: Anamaria Escalante is a 37 year old female G0 who presents for a LSCH/BSO This is being done due to pelvic pain, right ovarian enlargement, bilateral ovarian pain, polycystic ovaries, and irregular painful bleeding. 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 Morbid obesity with BMI of 40.0-44.9, adult Obstructive sleep apnea of adult (~06/2018) Ovarian enlargement, right (01/2021) Persistent cough (06/2019) Snoring URI (upper respiratory infection) UTI (urinary tract infection) Surgical History H/O knee surgery Hx of sinus surgery (05/2015) Social History details: lives in [place] household members: family current 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 exposures/hazards: Yes (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 [employer] ) Smoking Status: Never smoker second hand exposure: Yes (yes, were I work.) alcohol intake: current substance use type: does not use Meds Home Medications and Allergies Home Medications Medication Instructions Recorded Confirmed Type [Work Shoes] #2 ea 03/08/17 09/02/22 Rx Respironics Dreamstation CPAP #1 ea 09/13/18 09/02/22 History budesonide-formoterol HFA 160 2 puff inhalation BID PRN Dyspnea 01/10/20 09/23/22 History mcg-4.5 mcg/actuation aerosol inhaler (Symbicort) baclofen 10 mg tablet 10 mg PO BID 02/05/21 09/23/22 History galcanezumab-gnlm 120 mg/mL 120 mg SUBCUT QMONTH 02/05/21 09/23/22 History subcutaneous pen injector (Emgality Pen) rizatriptan 10 mg tablet See Rx Instructions PO .COMPLEX 02/05/21 09/23/22 History albuterol sulfate 2.5 mg/3 mL See Rx Instructions inhalation 02/11/22 09/23/22 Rx (0.083 %) solution for nebulization Q6HP PRN shortness of breath or wheezing #90 mL escitalopram oxalate 20 mg tablet 20 mg PO DAILY #90 tabs 02/11/22 09/23/22 Rx ipratropium bromide 0.02 % 2.5 ml inhalation Q6HP PRN 02/11/22 09/23/22 Rx solution for inhalation shortness of breath or wheezing #225 mL losartan 50 mg tablet 50 mg PO DAILY #90 tabs 02/11/22 09/23/22 Rx triamcinolone acetonide 0.025 % 1 applic topical BID PRN Eczema 02/11/22 09/23/22 Rx topical cream #80 grams bupropion HCl 150 mg 24 hr tablet, 150 mg PO QAM #90 tabs 09/02/22 09/23/22 Rx extended release (Wellbutrin XL) Allergies Allergy/AdvReac Type Severity Reaction Status Date / Time apple Allergy Intermediate really Verified 09/23/22 08:29 bad stomach pain shrimp Allergy Intermediate stomach Verified 09/23/22 08:29 ache, vomiting and diarrhea. Eggs Allergy Mild Really Uncoded 09/23/22 08:29 bad stomach ache, vomiting and diarrea tomatoes Allergy Mild stomach Uncoded 09/23/22 08:29 ache Exam Narrative Exam Narrative: HEENT: No thyromegaly, no anterior cervical or supraclavicular lymphadenopathy. Lungs:Clear to auscultation bilaterally, no wheezes. Cardiovascular: Regular rate and rhythm, no murmurs, rubs, or gallops. Abdomen: No scars. No hepatosplenomegaly. No masses palpable. External genitalia: Normal Vagina: Normal Cervix: Normal Bimanual exam: 8 Week size uterus. Mobile. Extremities: No edema Assessment & Plan Assessment & Plan narrative: Assessment: 37-year-old 0 with irregular, painful bleeding, right ovarian enlargement, bilateral ovarian pain, polycystic ovaries, and pelvic pain Plan: Laparoscopic supracervical hysterectomy/bilateral salpingo-oophorectomy The risks, benefits, and alternatives to the procedure were explained to the patient. The risks including bleeding, infection, injury to the bowel, bladder, or ureters. She also understands that there is a possibility of an open procedure. A full par Q was held and consent form was signed. Time Spent With Patient Time with patient: less than 30 minutes
--- NOTE | 2022-09-23 08:06 | PM.PREOP ---
Pre-operative Note COVID-19 Criteria for continued procedure: Non-surgical alternatives not available or appropriate per current SOC Interval Note History & Physical reviewed/Exam performed by Physician: Yes Changes to H&P: No H&P completed within 30 days and has changed as indicated here:: 09/23/22
[2022-09-23] MEDS: LACTATED RINGERS 1,000 ML 100 ML IV ×3 (08:19→15:45)
[2022-09-23] MEDS: SCOPOLAMINE 1 PATCH TOP (09:52)
[2022-09-23] MEDS: CEFAZOLIN VIAL 3 GM in SODIUM CHLORIDE 0.9% 100 ML IV (10:29)
--- NOTE | 2022-09-23 10:50 | SUR.OPER ---
Lithotomy on padded OR bed. [place] Pad Positioner under torso. Head on pillow, arms padded and tucked at sides. Legs secured in padded yellow fins stirrups.
[2022-09-23] MEDS: BUPIVACAINE 0.5% (PF) 30 ML, EPINEPHrine 0.15 MG INJ (11:32)
[2022-09-23] MEDS: ROPIVACAINE 0.2% PF 2 MG/ML 20ML AMP 20 ML INJ (11:33)
--- NOTE | 2022-09-23 13:43 | P.OP_ITS ---
Operative Date/Time/Diagnoses Date of procedure: 09/23/22 Time of procedure: 13:44 Pre-op diagnosis: Painful irregular bleeding PCOS Pelvic pain Ovarian enlargement Post-op diagnosis: same Procedure & Clinicians Procedure: Procedures Operation Date: 07/12/22 11:45 <No data on this case meets the specified criteria> Operation Date: 09/23/22 09:15 Actual Procedure Side Surgeon p Laparoscopic Supracervical Hysterectomy, Bilateral Salpingo-oophorectomy Enid Wong MD Mini laparotomy with MARIN/BSO Indications: Pelvic pain Irregular, painful bleeding PCOS Bilateral ovarian enlargement Surgeon: Enid Wong Site Technician: Yamilka Sarkar Anesthesia Type: General and Local Operative Notes Findings: 5 week size anteverted uterus Normal liver and gallbladder Normal appendix Bilateral ovarian enlargement Normal tubes Closure Type: primary Specimen(s): left tube & ovary, right tube & ovary and uterus Applied: catheter (To continuous drainage) Estimated blood loss (mL): 100 Blood products transfused: none Procedure in detail: Patient was taken to the operating room where she was placed in the dorsal supine position. After adequate general endotracheal anesthesia was achieved, she was placed in the dorsal lithotomy position, and prepped and draped in the usual sterile fashion. A time-out was performed. A bivalve speculum was placed into the vagina and the anterior lip of the cervix was grasped with a single- tooth tenaculum. The cervical os was sequentially dilated until the Zumi uterine manipulator could pass easily into the endometrial cavity. The single- tooth tenaculum was removed from the anterior lip of the cervix. The bivalve speculum was removed from the vagina. Attention was then turned to the abdomen where 6 cc of 0.5% Marcaine with epinephrine were injected in the umbilical fold. A 5 mm incision was made. A long Veress needle was placed into the peritoneal cavity, and its placement confirmed by aspiration and drop test. The abdominal cavity was insufflated with 4.8 L of CO2. The Veress needle was removed, and a long 5 mm trocar was placed without difficulty. Two other incisions were made 4 cm lateral to the midline after 6 cc of 0.5% Marcaine with epinephrine were injected. Two other long 5 mm trocars were placed under direct visualization. The right tube and ovary were grasped with an atraumatic gr asper. The infundibulopelvic ligament on the right side was cauterized and cut with the power seal. The mesosalpinx was cauterized and cut. The round ligament and broad ligament were cauterized and cut. The bladder flap was created using the power seal retirement across. The uterine arteries were cauterized with the power seal. All of this was repeated on the patient's left side. Using the Yesi loop, the uterus was amputated from the cervix 2 cm above the uterosacral ligaments, after the Zumi uterine manipulator was removed from the uterus and a moistened sponge stick placed into the vagina. Care was taken to make sure that no bowel or bladder was in the loop. There was no bleeding noted. The endocervical canal was cauterized with the spatula cautery. 6 cc of 0.5% Marcaine with epinephrine were injected 3 cm above the pubic symphysis. A 12 mm incision was made. A long 12 mm trocar was placed under direct visualization. The endobag was placed through the 12 mm trocar. The uterus was placed into the bag. The edges of the bag were brought up through the incision. Due to the depth of the subcutaneous layer, the Chicho could not be placed. A cut down of the suprapubic incision was done extending the incision to 5 cm. The peritoneal incision was extended as well as the fascial incision. The uterus was brought up through the bag. The ovaries remained in the abdominal cavity. A new 12 mm trocar with a balloon was placed through the suprapubic incision. The small endobag was placed and the ovaries were removed 1 at a time. Using a new bag for each ovary. The pelvis was examined there was no bleeding noted. The pelvis was irrigated. 20 cc of ropivacaine were placed over the pelvic pedicles. The suprapubic trocar was removed as well as all of the other trocars after the CO2 was allowed to escape. The fascia on the suprapubic incision was closed with 0 Vicryl in a running fashion. Three layers were placed in the subcutaneous layer to reapproximate. The skin was closed with 4-0 Monocryl in a subcuticular fashion. All of the 5 mm incisions were closed with 4-0 Monocryl in a subcuticular fashion. Mastisol, Steri-Strips, and Allevyn dressings were placed. Sponge, lap, and instrument counts were correct x2. The patient tolerated the procedure well, and was taken to PACU in stable condition. Complications: none Post-operative Condition: stable Disposition: PACU Plan for aftercare: To Acute Care after Recovery
[2022-09-23] MEDS: KETOROLAC 30 MG/ML VIAL IV ×2 (15:45→20:31)
[2022-09-23] MEDS: ACETAMINOPHEN 325 MG TABLET 650 MG PO (18:18)
[2022-09-23] MEDS: DOCUSATE 100 MG CAPSULE 200 MG PO (20:30)
[2022-09-24] VITALS (7 sets, daily range): BP systolic 120–128; BP diastolic 52–71; PULSE 66–99; RESP 17–20; TEMP 36.4–37.3; O2SAT 97–99
[2022-09-24] MEDS: ACETAMINOPHEN 325 MG TABLET 650 MG PO ×4 (00:01→17:01)
[2022-09-24] MEDS: LACTATED RINGERS 1,000 ML 100 ML IV (01:32)
[2022-09-24] MEDS: KETOROLAC 30 MG/ML VIAL IV ×2 (04:48→09:22)
[2022-09-24 06:07] LABS: Add Manual Diff / Slide Review NO; Basophils Absolute Auto 0 /uL (0-100); Basophils Percent Auto 0.3 % (0-2); Eosinophils Absolute Auto 0 /uL (0-450); Hematocrit 32.4 % (36-46); Hemoglobin 10.6 g/dL (12.0-16.0); Lymphocytes Absolute Auto 2100 /uL (1100-4500); Lymphocytes Percent Auto 14.8 % (25-40); Mean Corpuscular HGB Conc 32.6 % (30-36); Mean Corpuscular Hemoglobin 24.8 PG (26-34); Monocytes Absolute Auto 1200 /uL (0-900); Monocytes Percent Auto 8.7 % (3-14); Neutrophils Absolute Auto 10800 /uL (1500-7000); Neutrophils Percent Auto 76.2 % (50-75); Platelet Count 228 X10^3/uL (150-400); Red Blood Cell Count 4.26 X10^6/uL (4.0-5.2); Red Cell Distribution Width 15.9 % (11.6-14.8); White Blood Cell Count 14.2 X10^3/uL (4.5-11.0)
--- NOTE | 2022-09-24 06:42 | PC.NURSE ---
0508 SPO2 in 1 liter 99%, turned O2. Rechecked saturation in room air 97%, will monitor.
[2022-09-24] MEDS: ALBUTEROL 2.5 MG/3 ML NEB (ADULT) INH (08:17)
[2022-09-24] MEDS: DOCUSATE 100 MG CAPSULE 200 MG PO ×2 (08:49→19:41)
[2022-09-24] MEDS: LOSARTAN 50 MG TABLET PO (08:49)
[2022-09-24] MEDS: ESCITALOPRAM 10 MG TABLET 20 MG PO (08:49)
[2022-09-24] MEDS: buPROPion XL 150 MG TAB PO (08:50)
--- NOTE | 2022-09-24 11:56 | CM.DANOTE ---
Patient is a 37 yo female who was admitted on 09/23/22 for Lap hysterectomy. Pt has [facility] and [facility] for insurance and her PCP is Gage Leary. EMR was reviewed. Per OBGYN, pt's lap hyst turned open and seems to be tolerating procedure well. Per RN, pt had wagner d/c'd and pain seems to be managed and independent in room and no concerns at this time. Pt lives in [place] with family and mother and is active and independent at baseline and works and no hx of admissions. Pt confirms that family can assist if needed at d/c and pt preference is home with family and does not anticipate any d/c planning needs. Plan: SW to follow for plan of d/c home with family support and any further identified discharge planning needs. RADHA Dennison Discharge Planning/Care Management CM Discharge Assessment Start: 09/24/22 11:55 Freq: Status: Active Protocol: Document 09/24/22 11:55 BF (Rec: 09/24/22 11:56 BF [id number]) Discharge Planning Assessment Assigned Haul Cane Brakeman RADHA Gonzalez DPOA/Assigned Designee Name informally mother Contact Information [phone] Advance Directives? No Advance Directives on File No History Provided By Patient,Medical Record Has Patient been admitted in last 30 No days? Prior Living Arrangements House Household Members family Type of transporation used prior to Drives own vehicle admit Independent with ADL's Yes Is patient alert and oriented? Yes Caregiver for Another No Discharge Plan Home Transportation Arrangement Likely family to transport at d/c Referrals Initiated None needed Whiteboard Updated in Patient Room with Yes name and ext. # of Haul Cane Brakeman Review Status In Process Please Provide Date Initial DC 09/24/22 Assessment Was Performed Next Review Type Continued Stay Review Pre-Anesthesia Assessment Start: 09/16/22 09:13 Freq: Status: Active Protocol: Document 09/16/22 09:13 CAB (Rec: 09/16/22 09:21 CAB [id number]) Pre-Anesthesia Assessment Patient Information Reviewed Via Chart Review Primary Care Provider Gage Leary Seen Specialist in Last 12 Months Yes Specialist Seen Crop And Soil Technician Primary Language Guamanian Supervisor Word Processing Required No Height 172.72 cm Weight 136.078 kg Body Mass Index (BMI) 45.6 Barriers to Learning None Anesthesia Review Requested No Manager Work No alcohol intake current Smoking Status Never smoker Substance Use Type does not use Pain Present Pain Reported Patient is completely paralyzed or No completely immobile Mental Status Oriented to own ability Hx Sleep Apnea Yes CPAP/BIPAP use prescribed and used routinely Currently Taking a Beta Luci No Anti-Coagulant Therapy No Has a Show Dog Trainer No Cardiac Testing No Hx Pacemaker/ICD No Pacemaker Rep Required? No Cardiac Clearance Received Not Applicable Urinary Catheter Present No Hx Urinary Self Catheterization No Diabetes No HgbA1C 5.7 Date 02/04/22 Marital Status Single Lives With family Patient Discharge Plan Description Return Home Advance Directives? No
--- NOTE | 2022-09-24 13:32 | PC.NURSE ---
Day shift: Pt ambulating in halls with YASMIN Ca at this time (1330). Pt tolerating well.
--- NOTE | 2022-09-24 18:32 | PM.PNPO.1 ---
Subjective Subjective Date Patient Seen: 09/24/22 Time Patient Seen: 13:30 Interval history: Postop day # 1 status post mini laparotomy with supracervical hysterectomy and bilateral salpingo-oophorectomy. Patient has voided without the catheter. She is tolerating a diet. Her pain is fairly well controlled. She has not ambulated as of yet. No nausea or vomiting. Exam Vital Signs (past 8 hours): - 09/24/22 11:52 09/24/22 13:16 Temperature 98.6 F Pulse Rate 79 Respiratory Rate 18 Blood Pressure 120/52 L Pulse Oximetry 99 Oxygen Delivery Method Room Air Oxygen Flow Rate 0 Oxygen Delivery Method Room Air Oxygen Flow Rate 0 Narrative Exam Narrative: Generally: Patient is sitting up in bed, no acute distress Lungs: Clear to auscultation bilaterally Cardiovascular: Regular rate and rhythm Abdomen: Soft, good bowel sounds Incisions: Clean dry and intact with Allevyn dressing Extremities: No edema Objective Labs 09/24/22 05:54 Labs: Laboratory Results - last 24 hr 09/24/22 05:54 WBC 14.2 H RBC 4.26 Hgb 10.6 L Hct 32.4 L MCV 76.0 L MCH 24.8 L MCHC 32.6 RDW 15.9 H Plt Count 228 Neut % (Auto) 76.2 H Lymph % (Auto) 14.8 L Kimball % (Auto) 8.7 Eos % (Auto) 0.0 L Baso % (Auto) 0.3 Neut # (Auto) 14883 H Lymph # (Auto) 2100 Kimball # (Auto) 1200 H Eos # (Auto) 0 Baso # (Auto) 0 PFSH Medical History (Updated 09/16/22 @ 09:19 by Hina Lou RN) Allergic rhinitis Anxiety Asthma Asthma, moderate persistent (~01/12/18) Chronic shortness of breath (06/2019) Chronic sinusitis (~05/2015) Depression with anxiety GERD (gastroesophageal reflux disease) Hypertension Impaired fasting glucose Insomnia 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 Morbid obesity with BMI of 40.0-44.9, adult Obstructive sleep apnea of adult (~06/2018) Ovarian enlargement, right (01/2021) Persistent cough (06/2019) Snoring URI (upper respiratory infection) UTI (urinary tract infection) Surgical History H/O knee surgery Hx of sinus surgery (05/2015) Social History details: lives in [place] household members: family current 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 exposures/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: 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[employer] ) Smoking Status: Never smoker second hand exposure: Yes (yes, were I work.) alcohol intake: current substance use type: does not use Assessment & Plan Post-op Postoperative Procedures: Procedures Operation Date: 07/12/22 11:45 <No data on this case meets the specified criteria> Operation Date: 09/23/22 09:15 Actual Procedure Side Surgeon p Laparoscopic Supracervical Hysterectomy converted to mini Laparotomy with Bilateral Salpingo-oophorectomy Not Applicable Enid Wong MD Postoperative day: 1 Postoperative status: doing well Postoperative plan: routine post-op care Postoperative plan narrative: Ambulate this evening Incentive spirometer Anticipate discharge September 25, 2022 Time Spent With Patient Time with patient: 15-24 minutes Quality VTE Deep Vein Thrombosis/Pulmonary Embolism Present on Admission: No
[2022-09-24] MEDS: IBUPROFEN 600 MG TABLET PO (19:41)
[2022-09-24] MEDS: SODIUM CHLORIDE 0.9% FLUSH 10 ML IV (19:43)
[2022-09-25] MEDS: ACETAMINOPHEN 325 MG TABLET 650 MG PO ×3 (00:09→12:16)
[2022-09-25] MEDS: IBUPROFEN 600 MG TABLET PO ×3 (00:09→12:17)
[2022-09-25 05:18] VITALS: BP 139/61; PULSE 67; RESP 16; TEMP 36.3; O2SAT 99
[2022-09-25 08:00] VITALS: BP 140/78; PULSE 71; RESP 17; TEMP 36.3; O2SAT 100
[2022-09-25 08:45] VITALS: BP 140/88; PULSE 71
[2022-09-25] MEDS: DOCUSATE 100 MG CAPSULE 200 MG PO (08:45)
[2022-09-25] MEDS: ESCITALOPRAM 10 MG TABLET 20 MG PO (08:45)
[2022-09-25] MEDS: LOSARTAN 50 MG TABLET PO (08:45)
[2022-09-25] MEDS: buPROPion XL 150 MG TAB PO (08:45)
[2022-09-25] MEDS: SODIUM CHLORIDE 0.9% FLUSH 10 ML IV (08:46)
--- NOTE | 2022-09-25 12:33 | PC.NURSE ---
Day shift: Discharge instructions gone over with the patient. Answered all questions and patient stated understanding. Discharged via wheelchair with mother and brother. PCT Fletcher escorted patient out at 1305. All belongings with the patient.
--- NOTE | 2022-10-04 20:10 | PM.DS.1 ---
History of Present Illness History of Present Illness Date Patient Seen: 09/25/22 Time Patient Seen: 11:00 Chief complaint: Laparoscopic Supracervical Hysterectomy *OPB* Narrative: Patient is a 37-year-old 0 who presented on September 23, 2022 for a scheduled laparoscopic supracervical hysterectomy. She ended up with a mini-laparotomy in order to remove the uterus. It was difficult due to size of the patient's pannus to laparoscopically remove the uterus. Her postoperative course was unremarkable. On postop day # 1 her Mccord catheter was removed. She was able to void without the catheter. She tolerated a diet. She ambulated without assistance. Patient was discharged home on postop day # 2. This was September 25, 2022. She was to follow-up in 1 week for Aquacel dressing removal. Discharge Providers Provider Date of admission: 09/23/22 08:12 Discharge Date: 09/25/22 Primary care physician: ANYI Gutierrez Discharge provider: Enid Wong MD Summary Hospital Course Discharge Diagnosis: Pelvic pain Polycystic ovaries Irregular, painful bleeding Status post mini-laparotomy with supracervical hysterectomy and bilateral salpingo-oophorectomy Hospital Course: Patient is a 37-year-old 0 who presented on September 23, 2022 for a scheduled laparoscopic supracervical hysterectomy. She underwent this procedure but was converted to mini-laparotomy in order to me remove the uterus, tubes, and ovaries. On postop day # 1 her Mccord catheter was removed. She was able to void without the catheter. No nausea or vomiting. She tolerated a diet. She was ambulating without assistance. Her pain was well controlled. She was discharged home on postop day # 2. Status at Discharge Cognitive/behavioral status at discharge: oriented Functional status at discharge: independent ambulation Overall status at discharge: patient is progressing back to baseline Time Spent with Patient Time spent: Less than 30 minutes Exam Vital Signs (past 8 hours): Oxygen Delivery Method Room Air Oxygen Flow Rate 0 Narrative Exam Narrative: Generally: Patient is sitting up in bed, no acute distress Lungs: Clear to auscultation bilaterally Cardiovascular: Regular rate and rhythm Abdomen: Good bowel sounds. Incisions: Clean dry and intact with dressings. Ecchymosis around the incisions. 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 Morbid obesity with BMI of 40.0-44.9, adult Obstructive sleep apnea of adult (~06/2018) Ovarian enlargement, right (01/2021) Persistent cough (06/2019) Snoring URI (upper respiratory infection) UTI (urinary tract infection) Surgical History H/O knee surgery Hx of sinus surgery (05/2015) Social History details: lives in [place] household members: family 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[employer] ) Smoking Status: Never smoker second hand exposure: Yes (yes, were I work.) alcohol intake: current substance use type: does not use Discharge Assessment & Plan Assessment and Plan Assessment: Assessment: Postop day # 2 status post mini laparotomy with supracervical hysterectomy/bilateral salpingo-oophorectomy Patient doing very well Plan of Treatment: Plan: Discharge to home Follow-up in 1 week for Aquacel dressing removal Discharge Plan Discharge Plan Patient Disposition: Home Provider Discharge Comment: Call with fever, chills, or redness or drainage around the incisions The bruising around the incisions will go through color changes and that is normal Tylenol 650 mg every 6 hours as needed Ibuprofen 600 mg every 6 hours as needed Do not use ibuprofen and baclofen Discharge orders & Medications Prescriptions: Continued budesonide-formoterol [Symbicort] 160-4.5 mcg/actuation HFA aerosol inhaler 2 puff INHALATION BID PRN (Reason: Dyspnea) baclofen 10 mg tablet 10 mg PO BID rizatriptan 10 mg tablet See Rx Instructions PO .COMPLEX Rx Instructions: take 1 tab at onset of headache; if no relief may repeat 1 tab after at least 2 hrs; max = 3 tabs/24 hr PO Emgality Pen 120 mg/mL pen injector 120 mg SUBCUT QMONTH bupropion HCl [Wellbutrin XL] 150 mg tablet extended release 24 hr 150 mg PO QAM Qty: 90 0RF albuterol sulfate 2.5 mg /3 mL (0.083 %) solution for nebulization See Rx Instructions INHALATION Q6HP PRN (Reason: shortness of breath or wheezing) Qty: 90 3RF Dose Instruction: One vial INHALATION Q6HP PRN; Rx Instructions: Mix with Ipratropium and use via nebulizer every 6 hours as needed escitalopram oxalate 20 mg tablet 20 mg PO DAILY Qty: 90 3RF ipratropium bromide 0.02 % solution 2.5 ml INHALATION Q6HP PRN (Reason: shortness of breath or wheezing) Qty: 225 3RF Rx Instructions: Mix with albuterol and use via nebulizer every 6 hours as needed losartan 50 mg tablet 50 mg PO DAILY Qty: 90 3RF triamcinolone acetonide 0.025 % cream 1 applic TOP BID PRN (Reason: Eczema) Qty: 80 3RF (DME) Respironics Dreamstation CPAP Qty: 1 Dose Instruction: As directed Patient Comments: Pressure: 5-10 cmH2O DME: [facility] Rx Instructions: As directed Follow up/Referrals: Enid Wong MD [Physician] - (Has post op appts sched for 10/06 and 11/03 My office will call on Tuesday to schedule an Aquacel dressing removal next Tuesday) Diet/Activity/Treatments Diet: Regular Activity: No heavy lifting Skin/Wound/Dressing Care Report to your healthcare provider any signs of infection, such as:: chills, fever, increased pain, unusual drainage and unusual redness Dressing: Remove outer pink dressings with attached guaze tomorrow after a shower Leave lower brown dressing in place for 1 week Visit Report/Discharge Packet Instructions: DI for Hysterectomy, DI for Laparoscopy, DI for Prescription Opioid Use Stand Alone Forms: Patient Portal/API, Stroke Signs & Symptoms, Surgery Discharge Discharge Data Primary Care Provider: Gage Leary Discharges patient from system. Discharge Date/Time: 09/25/22 13:06 Quality VTE Deep Vein Thrombosis/Pulmonary Embolism Present on Admission: No
== END 2022-09-25 13:06 | disposition home or self-care (01) | DRG 513 ==
LOC: OR 08:12 → AC 09-24 09:41
PROVIDERS: Admitting Provider Obstetrics & Gynecology; PCP Registered Nurse Diabetes Educator; Referring Provider Obstetrics & Gynecology; Visit Provider Obstetrics & Gynecology
PROC: 0UT94ZL Resection of Uterus, Supracervical, Percutaneous Endoscopic Approach (ICD-10-PCS; principal; 2022-09-23 09:15)
DX: E28.2 Polycystic ovarian syndrome (principal); N93.9 Abnormal uterine and vaginal bleeding, unspecified; R10.2 Pelvic and perineal pain; I10 Essential (primary) hypertension; Q50.39 Other congenital malformation of ovary; J45.909 Unspecified asthma, uncomplicated; Z20.822 Contact with and (suspected) exposure to COVID-19
CPT/HCPCS: 36415; 81025; 82962; 85025; 94150; 94640; J0171; J0690; J1100; J1885; J2250; J2405; J2704; J2795; J3010; J7613

== ENCOUNTER → 2023-01-25 14:07 | Outpatient (CLI) | payer OTHER, MEDICAID, SELFPAY ==
[2022-09-23 17:05] VITALS: BMI 47.0
[2023-01-25 14:30] LABS: Hematocrit 39.2 % (36-46); Hemoglobin 12.9 g/dL (12.0-16.0); Mean Corpuscular HGB Conc 32.9 % (30-36); Mean Corpuscular Hemoglobin 25.5 PG (26-34); Mean Corpuscular Volume 77.4 fL (80-100); Platelet Count 245 X10^3/uL (150-400); Red Blood Cell Count 5.07 X10^6/uL (4.0-5.2); Red Cell Distribution Width 15.6 % (11.6-14.8); White Blood Cell Count 7.8 X10^3/uL (4.5-11.0)
[2023-01-25 14:40] LABS: Hemoglobin A1C% w Est Avg Glu 5.1 % (4.0-6.0)
[2023-01-25 14:56] LABS: Alanine Aminotransferase 39 IU/L (<35); Albumin 4.5 g/dL (3.5-5.0); Albumin Globulin Ratio 1.4 (1.0-2.8); Alkaline Phosphatase 60 U/L (38-126); Aspartate Aminotransferase 30 IU/L (14-36); BUN Creatinine Ratio 14.1 (6-22); Bilirubin Total 0.6 mg/dL (0.2-1.3); Blood Urea Nitrogen 12 mg/dL (7-17); Calcium 9.9 mg/dL (8.4-10.2); Carbon Dioxide 28 mmol/L (22-32); Chloride 103 mmol/L (98-107); Cholesterol 250 mg/dL (140-199); Estimated Glomerular Filt Rate > 60 mL/min (>60); Globulin 3.3 g/dL (1.7-4.1); Glucose 101 mg/dL (70-100); HDL Cholesterol 43 mg/dL (40-60); HEMOLYSIS 19 (0-50); LDL Cholesterol Calculated 166 mg/dL (<100); Potassium 4.4 mmol/L (3.4-5.1); Sodium 138 mmol/L (137-145); Total Protein 7.8 g/dL (6.3-8.2); Triglycerides 204 mg/dL (35-150)
[2023-01-25 15:22] LABS: TSH w/ Reflex to FT4 2.05 uIU/mL (0.47-4.68)
== END ==
PROVIDERS: PCP Registered Nurse Diabetes Educator; Referring Provider Registered Nurse Diabetes Educator; Visit Provider Registered Nurse Diabetes Educator
DX: E78.5 Hyperlipidemia, unspecified (principal); I10 Essential (primary) hypertension; R73.01 Impaired fasting glucose
CPT/HCPCS: 36415; 80053; 80061; 83036; 84443; 85027

== ENCOUNTER → 2023-07-28 13:18 | Outpatient (CLI) | payer OTHER, MEDICAID, SELFPAY ==
[2022-09-23 17:05] VITALS: BMI 47.0
[2023-07-28 14:49] LABS: Alanine Aminotransferase 31 IU/L (<35); Albumin 4.4 g/dL (3.5-5.0); Albumin Globulin Ratio 1.2 (1.0-2.8); Alkaline Phosphatase 58 U/L (38-126); Aspartate Aminotransferase 28 IU/L (14-36); Bilirubin Total 0.8 mg/dL (0.2-1.3); Bilirubin Unconjugated 0.6 mg/dL (0.0-1.1); Globulin 3.6 g/dL (1.7-4.1); HEMOLYSIS 23 (0-50)
== END ==
LOC: LAB 13:19
PROVIDERS: PCP Registered Nurse Diabetes Educator; Referring Provider Registered Nurse Diabetes Educator; Visit Provider Registered Nurse Diabetes Educator
DX: R74.8 Abnormal levels of other serum enzymes (principal)
CPT/HCPCS: 36415; 80076

== ENCOUNTER → 2024-02-10 09:09 | Outpatient (CLI) | payer OTHER, MEDICAID, SELFPAY ==
[2022-09-23 17:05] VITALS: BMI 47.0
[2024-02-10 13:08] LABS: Influenza A - CEPHEID Flu A NEGATIVE (NEGATIVE); Influenza B - CEPHEID Flu B NEGATIVE (NEGATIVE); Respiratory Syncytial Virus Negative (Negative)
[2024-02-10 13:15] LABS: COVID-19 CEPHEID 4-PLEX PCR Negative (Negative)
== END ==
PROVIDERS: PCP Registered Nurse Diabetes Educator; Visit Provider Nurse Practitioner Family
DX: J02.9 Acute pharyngitis, unspecified (principal); R05.1 Acute cough
CPT/HCPCS: 87635; 87400 ×2; 87420; 0241U; 87070

== ENCOUNTER → 2024-02-16 10:19 | Outpatient (CLI) | payer OTHER, MEDICAID, SELFPAY ==
[2022-09-23 17:05] VITALS: BMI 47.0
[2024-02-16 12:44] LABS: Mean Corpuscular HGB Conc 32.6 % (30-36); Mean Corpuscular Hemoglobin 25.6 PG (26-34); Mean Corpuscular Volume 78.6 fL (80-100); Platelet Count 254 X10^3/uL (150-400); Red Blood Cell Count 5.08 X10^6/uL (4.0-5.2); Red Cell Distribution Width 15.3 % (11.6-14.8); White Blood Cell Count 7.3 X10^3/uL (4.5-11.0)
[2024-02-16 12:53] LABS: Hemoglobin A1C% w Est Avg Glu 5.5 % (4.0-6.0)
[2024-02-16 13:12] LABS: Alanine Aminotransferase 33 IU/L (<35); Albumin 4.6 g/dL (3.5-5.0); Albumin Globulin Ratio 1.6 (1.0-2.8); Alkaline Phosphatase 67 U/L (38-126); Aspartate Aminotransferase 30 IU/L (14-36); BUN Creatinine Ratio 11.5 (6-22); Bilirubin Total 0.7 mg/dL (0.2-1.3); Blood Urea Nitrogen 11 mg/dL (7-17); Calcium 9.7 mg/dL (8.4-10.2); Carbon Dioxide 30 mmol/L (22-32); Chloride 103 mmol/L (98-107); Cholesterol 239 mg/dL (140-199); Estimated Glomerular Filt Rate > 60 mL/min (>60); Globulin 2.9 g/dL (1.7-4.1); Glucose 100 mg/dL (70-100); HDL Cholesterol 41 mg/dL (40-60); HEMOLYSIS < 15 (0-50); LDL Cholesterol Calculated 152 mg/dL (<100); Potassium 4.8 mmol/L (3.4-5.1); Sodium 139 mmol/L (137-145); Total Protein 7.5 g/dL (6.3-8.2); Triglycerides 230 mg/dL (35-150)
[2024-02-16 13:42] LABS: TSH w/ Reflex to FT4 1.99 uIU/mL (0.47-4.68)
== END ==
PROVIDERS: PCP Registered Nurse Diabetes Educator; Referring Provider Registered Nurse Diabetes Educator; Visit Provider Registered Nurse Diabetes Educator
DX: I10 Essential (primary) hypertension (principal); E78.5 Hyperlipidemia, unspecified; R73.01 Impaired fasting glucose; F41.1 Generalized anxiety disorder; F32.A Depression, unspecified; Z78.0 Asymptomatic menopausal state
CPT/HCPCS: 36415; 80053; 80061; 83036; 84443; 85027

== ENCOUNTER → 2024-09-14 11:01 | Outpatient (CLI) | payer OTHER, SELFPAY ==
[2022-09-23 17:05] VITALS: BMI 47.0
[2024-09-14 11:27] LABS: Estimated Glomerular Filt Rate > 60 mL/min (>60)
== END ==
PROVIDERS: PCP Registered Nurse Diabetes Educator; Referring Provider Registered Nurse Diabetes Educator; Visit Provider Registered Nurse Diabetes Educator
DX: R06.02 Shortness of breath (principal)
CPT/HCPCS: 36415; 82565

== ENCOUNTER → 2024-09-18 10:22 | Outpatient (CLI) | payer OTHER, SELFPAY ==
[2022-09-23 17:05] VITALS: BMI 47.0
--- NOTE | 2024-09-18 10:23 | DI.CT.S_ITS ---
PROCEDURE: CT ANGIO CHEST ABDOMEN PELVIS INDICATIONS: eval, high risk screen, family history aortic dissection TECHNIQUE: Precontrast 5 mm thick sections acquired from the lung apices to the iliac crests. After the administration of intravenous contrast, 2.5 mm thick sections again acquired from the lung apices to the iliac crests. Maximum intensity projection (MIP) oblique sagittal and coronal reformats were then acquired. For radiation dose reduction, the following was used: automated exposure control. COMPARISON: None. FINDINGS: Image quality: Diagnostic. AORTA: No aortic aneurysm. No acute aortic syndrome. CHEST: Lower Neck: No enlarged lymph nodes. Thyroid: No thyroid nodules which require sonographic follow up, per consensus guidelines. Axillae: No enlarged lymph nodes. Chest Wall: Unremarkable. Lungs and Pleura: No pneumothorax or pleural effusions. No consolidation or suspicious nodules. Heart: Heart size is normal. No pericardial effusion. Thoracic Vessels: Pulmonary arteries demonstrate normal size. Mediastinum and Leydi: No enlarged lymph nodes. Esophagus: No wall thickening. No hiatal hernia. ABDOMEN: Liver: No solid mass. There is diffuse hypoattenuation of the liver parenchyma relative to the spleen compatible with hepatic steatosis. Gallbladder: No radiopaque gallstones or wall thickening. Biliary ducts: No biliary dilation. Pancreas: No ductal dilation. Spleen: Size is within normal limits. Adrenal Glands: No adrenal nodules. Kidneys and Ureters: No hydronephrosis. No solid mass. No complex renal cystic lesion which requires follow up. Bilateral ureter appears non-dilated throughout its expected course without ureteral stones visualized. Stomach and Bowel: Normal colonic caliber, without significant wall thickening. No evidence for small bowel obstruction or associated inflammatory changes. Peritoneum: No abnormal intraperitoneal fluid. No free air. Ventral Wall: No hernia. Abdominal Nodes: No retroperitoneal or mesenteric adenopathy by size criteria. Vessels: Inferior vena cava is normal in size. PELVIS: Pelvic Organs: Unremarkable. Bladder: Unremarkable. Pelvic Nodes: No enlarged lymph nodes. Miscellaneous: No inguinal hernias are seen. Bones: Unremarkable. Visualized osseous structures appear intact without acute fracture or focal destructive lesion. No acute compression fractures of the imaged spine. IMPRESSION: CT chest, abdomen, and pelvis without acute abnormalities. No evidence for aneurysmal dilatation of the thoracic or abdominal aorta. No evidence for aortic dissection. Hepatic steatosis. Dictated by: Tony Chavez M.D. on 09/18/2024 at 11:05 Approved by: Tony Chavez M.D. on 09/18/2024 at 11:13
== END ==
PROVIDERS: PCP Registered Nurse Diabetes Educator; Referring Provider Registered Nurse Diabetes Educator; Visit Provider Registered Nurse Diabetes Educator
DX: K76.0 Fatty (change of) liver, not elsewhere classified (principal); Z82.49 Family history of ischemic heart disease and other diseases of the circulatory system
CPT/HCPCS: 71275; 74174; Q9967

== ENCOUNTER → 2024-10-07 10:11 | Outpatient (CLI) | payer OTHER, SELFPAY ==
[2022-09-23 17:05] VITALS: BMI 47.0
[2024-10-07 11:14] LABS: Influenza A - CEPHEID Flu A NEGATIVE (NEGATIVE); Influenza B - CEPHEID Flu B NEGATIVE (NEGATIVE); Respiratory Syncytial Virus Negative (Negative)
[2024-10-07 11:18] LABS: COVID-19 CEPHEID 4-PLEX PCR Negative (Negative)
== END ==
PROVIDERS: PCP Registered Nurse Diabetes Educator; Visit Provider Nurse Practitioner Family
DX: J02.9 Acute pharyngitis, unspecified (principal); R05.1 Acute cough
CPT/HCPCS: 0241U; 87070

== ENCOUNTER → 2024-10-07 10:29 | Outpatient (CLI) | payer OTHER, SELFPAY ==
[2022-09-23 17:05] VITALS: BMI 47.0
--- NOTE | 2024-10-07 10:31 | DI.RAD.S_ITS ---
PROCEDURE: XR CHEST 2V INDICATIONS: Cough TECHNIQUE: 2 views of the chest were acquired. COMPARISON: [facility], CR, XR CHEST 2V, 02/05/2021, 15:23. FINDINGS: Surgical changes and devices: None. Lungs and pleura: Lungs are clear. No pleural effusions or pneumothorax. Mediastinum: Mediastinal contours are normal. Heart size is normal. Bones and chest wall: No suspicious bony abnormalities. Soft tissues appear unremarkable. IMPRESSION: No acute cardiopulmonary pathology. Dictated by: Kingston Eagle M.D. on 10/07/2024 at 20:27 Approved by: Kingston Eagle M.D. on 10/07/2024 at 20:27
== END ==
PROVIDERS: PCP Registered Nurse Diabetes Educator; Referring Provider Nurse Practitioner Family; Visit Provider Nurse Practitioner Family
DX: J02.9 Acute pharyngitis, unspecified (principal); R05.1 Acute cough
CPT/HCPCS: 0241U; 71046; 87070

== ENCOUNTER → 2025-01-14 13:01 | Outpatient (CLI) | payer OTHER, SELFPAY ==
[2022-09-23 17:05] VITALS: BMI 47.0
--- NOTE | 2025-01-14 13:03 | DI.RAD.S_ITS ---
PROCEDURE: XR FOOT RT MIN 3V INDICATIONS: Right foot injury. TECHNIQUE: 3 views of the foot were acquired. COMPARISON: [facility], , FOOT 3V LEFT, 02/01/2017, 14:52. FINDINGS: Bones: No fractures or dislocations. No suspicious bony lesions. 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 Soft tissues: No tibiotalar joint effusion. Achilles tendon appears normal. IMPRESSION: No acute bony abnormality. Dictated by: Gume Gallegos M.D. on 01/14/2025 at 14:01 Approved by: Gume Gallegos M.D. on 01/14/2025 at 14:02
== END ==
PROVIDERS: PCP Registered Nurse Diabetes Educator; Referring Provider Registered Nurse Diabetes Educator; Visit Provider Registered Nurse
DX: M19.071 Primary osteoarthritis, right ankle and foot (principal); M79.671 Pain in right foot
CPT/HCPCS: 73630

== ENCOUNTER → 2025-01-22 16:08 | Outpatient (CLI) | payer OTHER, SELFPAY ==
[2022-09-23 17:05] VITALS: BMI 47.0
--- NOTE | 2025-01-22 16:09 | DI.RAD.S_ITS ---
PROCEDURE: XR KNEE RT 3V INDICATIONS: hyperextended 1 week ago TECHNIQUE: 3 views of the knee were acquired. COMPARISON: None. FINDINGS: Bones: No fractures or dislocations. No suspicious bony lesions. Soft tissues: No joint effusion. No suspicious soft tissue calcifications. IMPRESSION: No acute bony abnormality or significant effusion. Dictated by: Soraya Hawkins M.D. on 01/22/2025 at 16:54 Approved by: Soraya Hawkins M.D. on 01/22/2025 at 16:55
--- NOTE | 2025-01-22 16:09 | DI.RAD.S_ITS ---
PROCEDURE: XR ANKLE RT 2V INDICATIONS: f/u on previous xray, pain swelling laterally and top of emy TECHNIQUE: 2 views of the ankle were acquired. COMPARISON: [facility], CR, XR ANKLE RT MIN 3V, 12/27/2024, 13:30. FINDINGS: Bones: No fractures or dislocations. Ankle mortise is normally aligned. No suspicious bony lesions. Unchanged dorsal talonavicular ossicle/spurring, which may reflect sequela of old injury. Soft tissues: No substantial tibiotalar joint effusion. Achilles tendon appears normal. IMPRESSION: No acute bony abnormality or significant effusion. Dictated by: Soraya Hawkins M.D. on 01/22/2025 at 16:50 Approved by: Soraya Hawkins M.D. on 01/22/2025 at 16:54
== END ==
PROVIDERS: PCP Registered Nurse Diabetes Educator; Referring Provider Physician Assistant; Visit Provider Physician Assistant
DX: M79.671 Pain in right foot (principal); M25.561 Pain in right knee
CPT/HCPCS: 73562; 73600

== ENCOUNTER → 2025-02-14 13:35 | Outpatient (CLI) | payer OTHER, SELFPAY ==
[2022-09-23 17:05] VITALS: BMI 47.0
[2025-02-14 14:15] LABS: Hematocrit 40.1 % (36-46); Hemoglobin 13.2 g/dL (12.0-16.0); Mean Corpuscular HGB Conc 32.8 % (30-36); Mean Corpuscular Hemoglobin 25.5 PG (26-34); Mean Corpuscular Volume 77.9 fL (80-100); Platelet Count 266 X10^3/uL (150-400)
[2025-02-14 14:24] LABS: Hemoglobin A1C% w Est Avg Glu 5.9 % (4.0-6.0)
[2025-02-14 14:33] LABS: Alanine Aminotransferase 55 IU/L (<35); Albumin 4.7 g/dL (3.5-5.0); Albumin Globulin Ratio 1.5 (1.0-2.8); Alkaline Phosphatase 60 U/L (38-126); Blood Urea Nitrogen 9 mg/dL (7-17); Calcium 9.7 mg/dL (8.4-10.2); Carbon Dioxide 25 mmol/L (22-32); Chloride 104 mmol/L (98-107); Cholesterol 234 mg/dL (140-199); Estimated Glomerular Filt Rate > 60 mL/min (>60); Globulin 3.2 g/dL (1.7-4.1); Glucose 106 mg/dL (70-99); HDL Cholesterol 47 mg/dL (40-60); HEMOLYSIS 19 (0-50); Potassium 4.4 mmol/L (3.4-5.1); Sodium 138 mmol/L (137-145); Total Protein 7.9 g/dL (6.3-8.2); Triglycerides 180 mg/dL (35-150)
[2025-02-14 15:04] LABS: TSH w/ Reflex to FT4 2.27 uIU/mL (0.47-4.68)
== END ==
PROVIDERS: PCP Registered Nurse Diabetes Educator; Referring Provider Registered Nurse Diabetes Educator; Visit Provider Registered Nurse Diabetes Educator
DX: I10 Essential (primary) hypertension (principal); E78.5 Hyperlipidemia, unspecified; R73.01 Impaired fasting glucose
CPT/HCPCS: 36415; 80053; 80061; 83036; 84443; 85027